=== PATIENT | male | born 1930 | race Caucasian/White ===

== ENCOUNTER 2019-02-25 21:15 | Inpatient (IN) | payer OTHER ==
[2019-02-25] MEDS ORDERED: SODIUM CHLORIDE 0.9% 500 ML INFUS.BAG IV ONE (22:21)
--- NOTE | 2019-02-25 22:30 | PDOC ---
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 Unfortunately our patient was not about to "push himself out of it", only able to crawl/ Luckily he did have access to some amount of water within his range of motion. After a day and a half his niece, who grew worried, called the police who ultimately found our patient and brought him to the ER. He is not in pain but is dehydrated ands hungry. <PopVadim - Last Filed: 02/26/19 00:39> - General Chief Complaint: Injury Stated Complaint: FALL Time Seen by Provider: 02/25/19 21:55 Past History <Lauren Avelar - Last Filed: 02/25/19 23:25> - Suicide/Smoking/Psychosocial Hx Smoking History: Never smoked Have you smoked in the past 12 months: No Information on smoking cessation initiated: No Hx Alcohol Use: No Drug/Substance Use Hx: No <Vadim Lord - Last Filed: 02/26/19 00:39> - Past Medical History Allergies/Adverse Reactions: Allergies Allergy/AdvReac Type Severity Reaction Status Date / Time No Known Allergies Allergy Verified 02/25/19 21:36 Review of Systems - Review of Systems Able to Perform ROS?: Yes Is the patient limited Ch[place] proficient: No Constitutional: Yes: Weakness HEENTM: No: Symptoms Reported Respiratory: No: Symptoms reported Cardiac (ROS): No: Symptoms Reported ABD/GI: No: Symptoms Reported Integumentary: No: Symptoms Reported Neurological: No: Symptoms reported <LordVadim - Last Filed: 02/26/19 00:39> *Physical Exam - Vital Signs Last Vital Signs Temp Pulse Resp BP Pulse Ox 97.7 F 88 16 162/85 97 02/25/19 21:15 02/25/19 21:15 02/25/19 21:15 02/25/19 21:15 02/25/19 21:15 <Lauren Avelar - Last Filed: 02/25/19 23:25> - Vital Signs Last Vital Signs Temp Pulse Resp BP Pulse Ox 97.7 F 88 16 162/85 97 02/25/19 21:15 02/25/19 21:15 02/25/19 21:15 02/25/19 21:15 02/25/19 21:15 - Physical Exam General Appearance: Yes: Disheveled HEENT: positive: Other (dry mucosa) Respiratory/Chest: positive: Lungs Clear, Normal Breath Sounds. negative: Chest Tender, Respiratory Distress Cardiovascular: positive: Regular Rhythm, Regular Rate, S1, S2 Gastrointestinal/Abdominal: positive: Normal Bowel Sounds, Flat, Soft. negative : Tender Musculoskeletal: negative: CVA Tenderness Extremity: positive: Delayed Capillary Refill Integumentary: positive: Normal Color, Dry, Warm, Other (skin tenting). negative: Ecchymosis, Bruising Neurologic: positive: Fully Oriented, Other (speech a bit slurred, improved after drinking water) <Vadim Lord - Last Filed: 02/26/19 00:39> ED Treatment Course - LABORATORY CBC & Chemistry Diagram: 02/25/19 22:45 02/25/19 22:45 - ADDITIONAL ORDERS Additional order review: Laboratory Results 02/25/19 22:45 Sodium 141 Potassium 4.0 Chloride 108 H Carbon Dioxide 24 Anion Gap 8 BUN 19 H Creatinine 0.9 Est GFR (CKD-EPI)AfAm 88.07 Est GFR (CKD-EPI)NonAf 75.99 Random Glucose 113 H Calcium 11.4 H Phosphorus 3.4 Total Bilirubin 1.1 H AST 32 ALT 33 Alkaline Phosphatase 214 H Creatine Kinase 404 H Troponin I < 0.02 Total Protein 7.4 Albumin 4.2 02/25/19 22:45 RBC 4.92 MCV 87.7 MCHC 32.5 RDW 14.8 MPV 9.1 Neutrophils % 74.5 Lymphocytes % 13.1 Monocytes % 10.5 H Eosinophils % 1.1 Basophils % 0.8 - Medications Given in the ED: ED Medications Discontinued Medications Generic Name Dose Route Start Last Admin Trade Name Freq PRN Reason Stop Dose Admin Sodium Chloride 1,000 ml 02/25/19 22:21 02/25/19 22:52 Normal Saline - IV 02/25/19 22:22 1,000 ml ONCE ONE Administration <Lauren Avelar - Last Filed: 02/25/19 23:25> - LABORATORY CBC & Chemistry Diagram: 02/25/19 22:45 02/25/19 22:45 <Vadim Lord - Last Filed: 02/26/19 00:39> Medical Decision Making - Medical Decision Making 02/25/19 23:55 88M found on the floor unable to get back up from unknown rehab device. Previously admitted and discharged for weakness secondary to hypercalcemia Getting 2L of fluid Mildly elevated CK, No elevation of creatinine. Negative trops. Calcium mildly elevated. No phosphate elevation. EKG: Sinus rhythm with occasional premature ventricular complexes. Inferior infarct, age undetermined. 02/26/19 00:38 Admitted to med surg hospitalist for weakness, inability to ambulate. <Vadim Lord - Last Filed: 02/26/19 00:39> *DC/Admit/Observation/Transfer <Lauren Avelar - Last Filed: 02/25/19 23:25> - Discharge Dispostion Decision to Admit order: Yes <Vadim Lord - Last Filed: 02/26/19 00:39> Diagnosis at time of Disposition: Unable to ambulate, Hypercalcemia - Discharge Dispostion Condition at time of disposition: Fair
[2019-02-25 22:55] LABS: BASO % 0.8 % (0-2.0); EOS % 1.1 % (0-4.5); HEMATOCRIT 43.1 % (35.4-49); LYMPH % 13.1 % (8-40); MCH 28.5 pg (25.7-33.7); MCHC 32.5 g/dl (32.0-35.9); MEAN CELL VOLUME 87.7 fl (80-96); MEAN PLT VOLUME 9.1 fl (7.5-11.1); MONO % 10.5 % (3.8-10.2); NEUT % 74.5 % (42.8-82.8); PLATELET COUNT 214 K/MM3 (134-434); RBC 4.92 M/mm3 (4.00-5.60); RDW 14.8 % (11.9-15.9); WHITE BLOOD COUNT 10.7 K/mm3 (4.0-10.0)
[2019-02-25 23:19] LABS: ALBUMIN 4.2 g/dl (3.4-5.0); ALK PHOS 214 U/L (45-117); ANION GAP 8 MMOL/L (8-16); BILIRUBIN,TOTAL 1.1 mg/dL (0.2-1); BLOOD UREA NITROGEN 19 mg/dL (7-18); CALCIUM 11.4 mg/dL (8.5-10.1); CHLORIDE 108 mmol/L (98-107); CO2 24 mmol/L (21-32); CREATININE 0.9 mg/dL (0.55-1.3); GLUCOSE,RANDOM 113 mg/dL (74-106); PHOSPHOROUS 3.4 mg/dL (2.5-4.9); SGOT/AST 32 U/L (15-37); SGPT/ALT 33 U/L (13-61); SODIUM 141 mmol/L (136-145); TOT PROT 7.4 g/dl (6.4-8.2)
--- NOTE | 2019-02-26 00:21 | PDOC ---
Documentation entered by Amalia Lopez SCRIBE, acting as scribe for Lauren Avelar MD. Lauren Avelar MD: This documentation has been prepared by the Jessica presley Sammi, SCRIBE, under my direction and personally reviewed by me in its entirety. I confirm that the documentation accurately reflects all work, treatment, procedures, and medical decision making performed by me. Attending Attestation - Resident Resident Name: Vadim Lord - ED Attending Attestation I have performed the following: I have examined & evaluated the patient, The case was reviewed & discussed with the resident, I agree w/resident's findings & plan, Exceptions are as noted - HPI HPI: 02/25/19 22:48 The patient is an 88 year old male, who was BIBA to the emergency department after being found down for 1.5 days in his home. The patient states he got stuck in a device and could not got out of it. His niece called the home furnishings sales representative to check on the patient as she had not heard from him for a while. The patient complains of severe dehydration. He notes chronic right shoulder pain. The patient is a poor historian. Of note, the patient was recently discharged from [facility] 2 days ago for hypercalcemia caused by a new parathyroid condition. - Physicial Exam PE: 02/25/19 22:48 GENERAL: Poor historian. Awake. No acute distress. HEENT: (+) Dry mucous membranes. Normocephalic, atraumatic. PERRLA, EOMI. No conjunctival pallor. Sclera are non-icteric. Oropharynx is clear. NECK: Supple. Full ROM. No JVD. Carotid pulses 2+ and symmetric, without bruits. No thyromegaly. No lymphadenopathy. CARDIOVASCULAR: Regular rate and rhythm. No murmurs, rubs, or gallops. Distal pulses are 2+ and symmetric. PULMONARY: No evidence of respiratory distress. Lungs clear to auscultation bilaterally. No wheezing, rales or rhonchi. ABDOMINAL: (+) ventral hernia - reproducible. Soft. Non-tender. Non-distended. No rebound or guarding. No organomegaly. Normoactive bowel sounds. MUSCULOSKELETAL (+) right shoulder tenderness. Normal range of motion at all joints. No bony deformities or tenderness. No CVA tenderness. EXTREMITIES: No cyanosis. No clubbing. No edema. No calf tenderness. SKIN: +tenting , Warm and dry. No rashes. No jaundice. NEUROLOGICAL: Alert, awake, appropriate. Cranial nerves 2-12 intact. No deficits to light touch and temperature in face, upper extremities and lower extremities. No motor deficits in the in face, upper extremities and lower extremities. Normoreflexic in the upper and lower extremities. Normal speech. Toes are down- going bilaterally. Gait is normal without ataxia. PSYCHIATRIC: Cooperative. Good eye contact. Appropriate mood and affect. 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
[2019-02-26] MEDS ORDERED: SODIUM CHLORIDE 1,000 ML IV STA ×2 (00:30→01:51)
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
--- NOTE | 2019-02-26 01:39 | PN ---
Teaching Attending Note Name of Resident: Tati Monaco ATTENDING PHYSICIAN STATEMENT I saw and evaluated the patient. I reviewed the resident's note and discussed the case with the resident. I agree with the resident's findings and plan as documented. SUBJECTIVE: 88 year old male, poor historian who was BIBA to the ER after being found down for 1.5 days in his home. The patient states he got stuck in a exercise machine in his home for almost 2 days and could not got out of it. He was without water and food for that time. Pt recently diagnosed at [facility] with hypercalcemia and allegedly has parathyroid tumor. OBJECTIVE: Last Vital Signs Temp Pulse Resp BP Pulse Ox 97.7 F 88 16 162/85 97 02/25/19 21:15 02/25/19 21:15 02/25/19 21:15 02/25/19 21:15 02/25/19 21:15 Oriented to person, place, not time general- nad, appears frail, weak heent- no tenderness neck supple cor-s1+s2+ no murmurs chest clear abdomen soft nt msk- no tenderness on limb palpation Abnormal Lab Results 02/25/19 02/25/19 22:45 22:45 WBC 10.7 H Monocytes % 10.5 H Chloride 108 H BUN 19 H Random Glucose 113 H Calcium 11.4 H Total Bilirubin 1.1 H Alkaline Phosphatase 214 H Creatine Kinase 404 H ekg reviewed ASSESSMENT AND PLAN: #Generalized weakness likely related to underlying hyperparathyroidism and hypercalcemia. Hx of parathyroid tumor- likely culprit. Ca elevated- 11.4. Mild rhabomyolysis likely from prolonged time on ground. Unknown baseline mental status. -admit ot med/surg -IV fluid hydration - NS -obtain medical records from [place] -cxr -head CT -pth -tsh -free ca level -phosphorus level -Vit D 25 hydrox, 0-25 hydrox -endocrine eval -bed rest fall precautions #Mild rhabdo -IV fluids -repeat CK #Mild leukocytosis - no evidence of infection -monitor cbc off abx DVT ppx - heparin sc
[2019-02-26] MEDS: SODIUM CHLORIDE 1,000 ML IV SCH ×3 (02:45→17:20)
--- NOTE | 2019-02-26 02:56 | PDOC ---
*Physical Exam - Vital Signs Last Vital Signs Temp Pulse Resp BP Pulse Ox 97.7 F 88 16 162/85 97 02/25/19 21:15 02/25/19 21:15 02/25/19 21:15 02/25/19 21:15 02/25/19 21:15 - Physical Exam Comments: 02/26/19 03:01 General Appearance: Nourished. No Apparent Distress HEENT: EOMI, VIRGIE. No Pharyngeal Erythema, Tonsillar Exudate, Tonsillar Erythema Neck: No Cervical Lymphadenopathy Respiratory/Chest: Lungs Clear, Normal Breath Sounds. No Crackles, Rales, Rhonchi, Wheezing Cardiovascular: Regular Rhythm, Regular Rate. No Murmur, Gallops, Rubs Gastrointestinal/Abdominal: Normal Bowel Sounds, Soft. No Guarding, Rebound, Tenderness Musculoskeletal: No CVA Tenderness Extremity: Normal Capillary Refill Integumentary: Normal Color, Dry, Warm Neurologic: research kennel supervisor II-XII NML intact, Fully Oriented, Alert, Normal Mood/Affect, Normal Response, Motor Strength 5/5. ED Treatment Course - LABORATORY CBC & Chemistry Diagram: 02/25/19 22:45 02/25/19 22:45 - ADDITIONAL ORDERS Additional order review: Laboratory Results 02/25/19 02/25/19 23:55 22:45 Sodium 141 Potassium 4.0 Chloride 108 H Carbon Dioxide 24 Anion Gap 8 BUN 19 H Creatinine 0.9 Est GFR (CKD-EPI)AfAm 88.07 Est GFR (CKD-EPI)NonAf 75.99 Random Glucose 113 H Calcium 11.4 H Phosphorus 3.4 Magnesium 2.3 Total Bilirubin 1.1 H AST 32 ALT 33 Alkaline Phosphatase 214 H Creatine Kinase 404 H Creatine Kinase Index 0.5 CK-MB (CK-2) 2.3 Troponin I < 0.02 Total Protein 7.4 Albumin 4.2 02/25/19 22:45 RBC 4.92 MCV 87.7 MCHC 32.5 RDW 14.8 MPV 9.1 Neutrophils % 74.5 Lymphocytes % 13.1 Monocytes % 10.5 H Eosinophils % 1.1 Basophils % 0.8 - Medications Given in the ED: ED Medications Discontinued Medications Generic Name Dose Route Start Last Admin Trade Name Freq PRN Reason Stop Dose Admin Sodium Chloride 1,000 mls @ 1,000 mls/hr 02/26/19 00:30 02/26/19 00:54 Normal Saline - IV 02/26/19 01:29 1,000 mls/hr ASDIR STA Administration Sodium Chloride 1,000 mls @ 1,000 mls/hr 02/26/19 01:51 02/26/19 02:45 Normal Saline - IV 02/26/19 02:50 1,000 mls/hr ASDIR STA Administration Sodium Chloride 1,000 ml 02/25/19 22:21 02/25/19 22:52 Normal Saline - IV 02/25/19 22:22 1,000 ml ONCE ONE Administration Medical Decision Making - Medical Decision Making 02/26/19 03:01 Received call from imaging nutrition faculty member regarding a critical read on the patient's head CT. Head CT demonstrated 2.8 cm subacute and acute right sided subdural hematoma with 11mm right to left subfalcine herniation. We discussed the case with Dr. Carnes with neurosurgery who recommended ICU admission for frequent q1h neurochecks and to keep the patient NPO for possible neurosurgical intervention. We discussed the case with the ICU team who accepted the patient for ICU admission. We discussed the findings and updated plain with the inpatient team who are aware of the new findings. *DC/Admit/Observation/Transfer Diagnosis at time of Disposition: Unable to ambulate, Hypercalcemia, Subdural hematoma - Discharge Dispostion Condition at time of disposition: Fair - Referrals - Patient Instructions - Post Discharge Activity
--- NOTE | 2019-02-26 02:57 | CONSULT ---
Consultation: REQUESTING PROVIDER: Hospitalist team CONSULT Service: ICU Resident HISTORY OF PRESENT ILLNESS: 88yo M w/ h/o HTN, parathyroid neoplasmt who presents today with 2 days of generalized weakness and being trapped in an exercise machine. Pt reports about 8 weeks ago he had a mechanical fall where he had a mistep which resulted with him hitting his head onto a concrete floor. Pt was seen at [facility] where he underwent stitches to his R zygomatic arch and supraorbital ridge, and was found to have 5 broken ribs and a fractured R clavicle. Pt reportedly did not receive a CT scan and was discharged home. Pt was in relatively usual state of health, however slightly weak when he decided to try his new exercise machine. Pt reports that he positioned himself wrong and because of his weakness he could not get out of the machine. He reports being stuck for 2 days. Pt's niece did not hear from him she decided to call the police who found him at his home. He was brought here by ambulance for further evaluation. Pt currently feels globally weak, but he denies any numbness, asymmetrical weakness, headache, incontinence. During pt's mechanical fall pt denies any lightheadedness, dizziness, shortness of breath, blurry vision, chest pain, palpitations. REVIEW OF SYSTEMS: As per HPI PHYSICAL EXAMINATION Vital Signs 02/25/19 21:15 Temperature 97.7 F Pulse Rate 88 Respiratory 16 Rate Blood Pressure 162/85 O2 Sat by Pulse 97 Oximetry (%) GENERAL: NAD, Awake, alert, and fully oriented HEENT: normocephalic, R zygomatic arch erythema without any present stitches, ANDERS, EOMI, sclera anicteric, dry mucosa NECK: No JVD, no thyromegaly appreciated, supple LUNGS: CTA bilaterally. No wheezes, and no crackles. No accessory muscle use. HEART: RRR, normal S1 and S2 without murmur ABDOMEN: Soft, NT/ND, normoactive bowel sounds, no guarding, EXTREMITIES: 1+ DP pulses b/l, warm, well-perfused. No calf tenderness. No peripheral edema. 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 Strength 3/5 globally yet symmetrical, Sensation intact throughout. Babinski downgoing b/l. Gait not observed. Patellar reflex 2/ 4 PSYCHIATRIC: Cooperative. Good eye contact. Appropriate mood and affect. SKIN: Warm, dry, no rashes noted. Laboratory Results 02/25/19 02/25/19 22:45 22:45 WBC 10.7 H RBC 4.92 Hgb 14.0 Hct 43.1 MCV 87.7 MCH 28.5 MCHC 32.5 RDW 14.8 Plt Count 214 MPV 9.1 Absolute Neuts (auto) 8.0 Neutrophils % 74.5 Lymphocytes % 13.1 Monocytes % 10.5 H Eosinophils % 1.1 Basophils % 0.8 Nucleated RBC % 0 Sodium 141 Potassium 4.0 Chloride 108 H Carbon Dioxide 24 Anion Gap 8 BUN 19 H Creatinine 0.9 Est GFR (CKD-EPI)AfAm 88.07 Est GFR (CKD-EPI)NonAf 75.99 Random Glucose 113 H Calcium 11.4 H Phosphorus 3.4 Magnesium 2.3 Total Bilirubin 1.1 H AST 32 ALT 33 Alkaline Phosphatase 214 H Creatine Kinase 404 H Creatine Kinase Index 0.5 CK-MB (CK-2) 2.3 Troponin I < 0.02 Total Protein 7.4 Albumin 4.2 Active Medications Generic Name Dose Route Start Last Admin Trade Name Freq PRN Reason Stop Dose Admin Sodium Chloride 1,000 mls @ 125 mls/hr 02/26/19 02:00 02/26/19 02:45 Normal Saline - IV 125 mls/hr ASDIR FARIHA Administration ASSESSMENT/PLAN: Acute/Subacute subdural hemorrhage Hypercalcemia 2/2 to hyperparathyroidism Parathyroid neoplasm Rhabdomyolysis, mild Dehydration HTN Prelim Head CT noncontrast 02/26/18: 2.8cm mixed acute and subacute diffuse R- sided subdural hematoma with significant mass effect causing 1.1cm of R-to-L subfalcine herniation --Neurosurgery contacted by primary teams; q1h neurochecks --Will assess in morning and likely evacuation given extent of shift (2.8cm hemorrhage with 1.1 cm shift) --NPO --No heparin or AC --Avoid sedatives and narcotics --does not need Dex/Decadron at this point --HOB elevation 30-45 to avoid ICP increase --BP goal in acute hemorrhagic stroke to 140-160 SBP to prevent continued bleeding or rebleed. [1,2] --Pt's antihypertensive regiment changed recently; to continue Lisinopril 20mg qdaily --Hypercalcemia likely due to parathyroid mass which was worked up at [facility] --PTH, vitamin D levels ordered --Primary team in process of acquiring records --pt currently receiving 3L NS and maintenance at 150cc/hr afterwards --Monitor CPK; UA to be collected (no specimen yet) --Monitor urine output --Recommend PT once pt cleared FEN: Fluids: NS@150cc/hr Electrolyte abnormalities: Hypercalcemia Nutrition: NPO PPX: DVT - SCDs only GI - Protonix daily to avoid Cushings ulcer GOC: Full Code Dispo: Monitor in ICU; awaiting neurosurgery procedure Case discussed with primary team Ed Boyd DO - IM PGY-2 Reference: [1] ATACH-2 trials [2] INTERACT2 trials Visit type - Emergency Visit Emergency Visit: Yes ED Registration Date: 02/26/19 Care time: The patient presented to the Emergency Department on the above date and was hospitalized for further evaluation of their emergent condition. - New Patient This patient is new to me today: Yes Date on this admission: 02/26/19 - Critical Care Critical Care patient: Yes Total Critical Care Time (in minutes): 35 Critical Care Statement: The care of this patient involved high complexity decision making to prevent further life threatening deterioration of the patient 's condition and/or to evaluate & treat vital organ system(s) failure or risk of failure.
[2019-02-26] MEDS ORDERED: LISINOPRIL 20 MG TABLET (FP) PO ONE (03:23)
[2019-02-26 03:52] LABS: URINE APPEARANCE CLEAR; URINE BILIRUBIN NEGATIVE (NEGATIVE); URINE COLOR YELLOW; URINE GLUCOSE (UA) NEGATIVE (NEGATIVE); URINE KETONE NEGATIVE (NEGATIVE); URINE LEUK ESTERASE NEGATIVE (NEGATIVE); URINE NITRITE NEGATIVE (NEGATIVE); URINE PROTEIN NEGATIVE (NEGATIVE)
[2019-02-26] MEDS: LISINOPRIL 20 MG TABLET (FP) PO SCH ×2 (05:38→09:25)
[2019-02-26] MEDS ORDERED: HEPARIN NA (PORCINE) 5,000 UNITS/ML 1ML VIAL SQ SCH (06:00)
[2019-02-26 06:28] LABS: BASO % 0.7 % (0-2.0); EOS % 3.7 % (0-4.5); HEMATOCRIT 37.1 % (35.4-49); HEMOGLOBIN 12.1 GM/dL (11.7-16.9); LYMPH % 21.1 % (8-40); MCH 28.6 pg (25.7-33.7); MCHC 32.5 g/dl (32.0-35.9); MEAN CELL VOLUME 88.1 fl (80-96); MEAN PLT VOLUME 10.1 fl (7.5-11.1); NEUT % 64.5 % (42.8-82.8); PLATELET COUNT 147 K/MM3 (134-434); RBC 4.21 M/mm3 (4.00-5.60); RDW 14.2 % (11.9-15.9); WHITE BLOOD COUNT 7.7 K/mm3 (4.0-10.0)
[2019-02-26 06:44] LABS: INR 1.1 (0.83-1.09)
[2019-02-26 06:47] LABS: ACTIVATED PTT 26.6 SECONDS (25.2-36.5)
[2019-02-26 07:11] LABS: ALBUMIN 3.2 g/dl (3.4-5.0); CALCIUM 9.7 mg/dL (8.5-10.1); CREATININE 0.9 mg/dL (0.55-1.3); MAGNESIUM 1.8 mg/dL (1.8-2.4); PHOSPHOROUS 2.9 mg/dL (2.5-4.9); POTASSIUM 3.5 mmol/L (3.5-5.1); TOT PROT 5.7 g/dl (6.4-8.2)
--- NOTE | 2019-02-26 07:20 | PN ---
Physical Exam: SUBJECTIVE: Patient seen and examined at bedside this morning. No overnight events. Patient denies acute complaints, resting comfortably in exam bed. Case discussed with patient's brother . OBJECTIVE: Vital Signs Period Temp Pulse Resp BP Sys/Mckeon Pulse Ox Last 24 Hr 97.7 F-98.1 F 67-88 16-20 142-162/65-87 97 GENERAL: The patient is awake, alert, and oriented, in no acute distress. HEAD: Normocephalic EYES: PERRL, extraocular movements intact without nystagmus, sclera anicteric, conjunctiva clear. ENT: Oropharynx clear without exudates, moist mucous membranes. NECK: Trachea midline, supple without lymphadenopathy LUNGS: Breath sounds equal, clear to auscultation bilaterally. No wheezes, no crackles, no accessory muscle use. HEART: Regular rate and rhythm, S1, S2 without murmur, rub or gallop. ABDOMEN: Soft, nontender, nondistended. Normoactive bowel sounds, no guarding, no rebound tenderness. EXTREMITIES: 2+ radial, dorsalis pedis pulses bilaterally, warm, well-perfused. No lower extremity edema. NEUROLOGICAL: Cranial nerves II through XII grossly intact, with exception of slight right sided ptosis, and nasiolabial flattening. PSYCH: Normal mood, normal affect, appropriate upon my encounter. SKIN: Warm, dry. Laboratory Results - last 24 hr 02/25/19 02/25/19 02/25/19 22:45 22:45 23:55 WBC 10.7 H RBC 4.92 Hgb 14.0 Hct 43.1 MCV 87.7 MCH 28.5 MCHC 32.5 RDW 14.8 Plt Count 214 MPV 9.1 Absolute Neuts (auto) 8.0 Neutrophils % 74.5 Lymphocytes % 13.1 Monocytes % 10.5 H Eosinophils % 1.1 Basophils % 0.8 Nucleated RBC % 0 PT with INR INR PTT (Actin FS) Sodium 141 Potassium 4.0 Chloride 108 H Carbon Dioxide 24 Anion Gap 8 BUN 19 H Creatinine 0.9 Est GFR (CKD-EPI)AfAm 88.07 Est GFR (CKD-EPI)NonAf 75.99 Random Glucose 113 H Calcium 11.4 H Phosphorus 3.4 Magnesium 2.3 Total Bilirubin 1.1 H AST 32 ALT 33 Alkaline Phosphatase 214 H Creatine Kinase 404 H Creatine Kinase Index 0.5 CK-MB (CK-2) 2.3 Troponin I < 0.02 Total Protein 7.4 Albumin 4.2 TSH Urine Color Urine Appearance Urine pH Ur Specific [place] Urine Protein Urine Glucose (UA) Urine Ketones Urine Blood Urine Nitrite Urine Bilirubin Urine Urobilinogen Ur Leukocyte Esterase 02/26/19 02/26/19 02/26/19 03:29 03:30 05:30 WBC RBC Hgb Hct MCV MCH MCHC RDW Plt Count MPV Absolute Neuts (auto) Neutrophils % Lymphocytes % Monocytes % Eosinophils % Basophils % Nucleated RBC % PT with INR INR PTT (Actin FS) 25.5 Sodium 143 Potassium 3.5 Chloride 112 H Carbon Dioxide 23 Anion Gap 8 BUN 17 Creatinine 0.9 Est GFR (CKD-EPI)AfAm 88.07 Est GFR (CKD-EPI)NonAf 75.99 Random Glucose 92 Calcium 9.7 Phosphorus 2.9 Magnesium 1.8 Total Bilirubin 1.0 AST 24 ALT 26 Alkaline Phosphatase 174 H Creatine Kinase 264 Creatine Kinase Index CK-MB (CK-2) Troponin I 0.02 Total Protein 5.7 L Albumin 3.2 L TSH 2.25 Urine Color Yellow Urine Appearance Clear Urine pH 6.0 Ur Specific [place] 1.016 Urine Protein Negative Urine Glucose (UA) Negative Urine Ketones Negative Urine Blood Negative Urine Nitrite Negative Urine Bilirubin Negative Urine Urobilinogen 1.0 Ur Leukocyte Esterase Negative 02/26/19 02/26/19 05:30 05:30 WBC 7.7 RBC 4.21 Hgb 12.1 Hct 37.1 MCV 88.1 MCH 28.6 MCHC 32.5 RDW 14.2 Plt Count 147 D MPV 10.1 D Absolute Neuts (auto) 5.0 Neutrophils % 64.5 Lymphocytes % 21.1 D Monocytes % 10.0 Eosinophils % 3.7 D Basophils % 0.7 Nucleated RBC % 0 PT with INR 13.00 INR 1.10 H PTT (Actin FS) 26.6 Sodium Potassium Chloride Carbon Dioxide Anion Gap BUN Creatinine Est GFR (CKD-EPI)AfAm Est GFR (CKD-EPI)NonAf Random Glucose Calcium Phosphorus Magnesium Total Bilirubin AST ALT Alkaline Phosphatase Creatine Kinase Creatine Kinase Index CK-MB (CK-2) Troponin I Total Protein Albumin TSH Urine Color Urine Appearance Urine pH Ur Specific [place] Urine Protein Urine Glucose (UA) Urine Ketones Urine Blood Urine Nitrite Urine Bilirubin Urine Urobilinogen Ur Leukocyte Esterase Active Medications Generic Name Dose Route Start Last Admin Trade Name Freq PRN Reason Stop Dose Admin Sodium Chloride 1,000 mls @ 125 mls/hr 02/26/19 02:00 02/26/19 04:00 Normal Saline - IV 125 mls/hr ASDIR FARIHA Administration Lisinopril 20 mg 02/26/19 03:30 02/26/19 05:38 Prinivil PO 20 mg DAILY FARIHA Administration Pantoprazole Sodium 40 mg 02/26/19 10:00 Protonix Iv IVPUSH DAILY FARIHA ASSESSMENT/PLAN: Patient is an 88 year old male with history of parathyroid neoplasm, hypertension admitted to ICU for subacute/ acute subdural hematoma. Neurologic -Patient is awake, alert, fully oriented. -CT head shows large right sided subdural hematoma, maximal width 2.8cm, with significant mass effect on right ventricle, midline shift and subfalcine herniation (10-11mm) -Neurosurgery recommendations (Dr. Carnes) appreciated. Patient for OR today. Follow up postoperative recommendations. Cardiac -History of hypertension -Maintaining systolic BP 140-160mmHg -Lisinopril 20mg PO Pulmonary -Patient is currently not intubated. Saturating well on room air. -Maintain oxygen saturation greater than 90% Gastrointestinal -NPO pending neurosurgery evaluation Endocrine -History of parathyroid neoplasm -Hypercalcemia -Ionized calcium -Will need to obtain records from [facility] -Endocrinology consult (Dr. Petit) appreciated. FEN -IV normal saline at 150mL/ hour -Hypercalcemia resolving. Follow CMP -NPO pending neurosurgery evaluation Prophylaxis -Holding chemical anticoagulation in anticipation of neurosurgical procedure Disposition -Continue care in ICU. Visit type - Emergency Visit Emergency Visit: Yes ED Registration Date: 02/26/19 Care time: The patient presented to the Emergency Department on the above date and was hospitalized for further evaluation of their emergent condition. - New Patient This patient is new to me today: Yes Date on this admission: 02/26/19 - Critical Care Critical Care patient: Yes Total Critical Care Time (in minutes): 35 Critical Care Statement: The care of this patient involved high complexity decision making to prevent further life threatening deterioration of the patient 's condition and/or to evaluate & treat vital organ system(s) failure or risk of failure. - Discharge Referral Referred to [facility] Med [facility].: No
--- NOTE | 2019-02-26 07:43 | PN ---
Physical Exam: SUBJECTIVE: Patient seen and examined at bedside. no acute events since admission. denies fever, chills, cp, sob, n/v/d, urinary sxs. +BM, voiding today. OBJECTIVE: Vital Signs Period Temp Pulse Resp BP Sys/Mckeon Pulse Ox Last 24 Hr 97.7 F-98.1 F 67-88 16-20 142-162/65-87 97 GENERAL: AOX3, talking slowly, NAD HEAD: NCTAT EYES: Pupils pinpoint equal, round and reactive to light, L eye lens opacity EARS, NOSE, THROAT: Dry mucous membranes++. Poor dentition NECK: supple LUNGS: CTAB HEART: RRR, normal S1 and S2 ABDOMEN: Soft, NTND, normoactive bowel sounds, MUSCULOSKELETAL: Normal range of motion at all joints. No bony deformities or tenderness. LOWER EXTREMITIES: 2+ pulses, warm, well-perfused. No calf tenderness. No peripheral edema. NEUROLOGICAL: Slow/ low toned speech. gait not observed. Strength 3-4/5 throughout. sensation grossly intact. CN 2-12 intact Laboratory Results - last 24 hr 02/25/19 02/25/19 02/25/19 22:45 22:45 23:55 WBC 10.7 H RBC 4.92 Hgb 14.0 Hct 43.1 MCV 87.7 MCH 28.5 MCHC 32.5 RDW 14.8 Plt Count 214 MPV 9.1 Absolute Neuts (auto) 8.0 Neutrophils % 74.5 Lymphocytes % 13.1 Monocytes % 10.5 H Eosinophils % 1.1 Basophils % 0.8 Nucleated RBC % 0 PT with INR INR PTT (Actin FS) Sodium 141 Potassium 4.0 Chloride 108 H Carbon Dioxide 24 Anion Gap 8 BUN 19 H Creatinine 0.9 Est GFR (CKD-EPI)AfAm 88.07 Est GFR (CKD-EPI)NonAf 75.99 Random Glucose 113 H Calcium 11.4 H Phosphorus 3.4 Magnesium 2.3 Total Bilirubin 1.1 H AST 32 ALT 33 Alkaline Phosphatase 214 H Creatine Kinase 404 H Creatine Kinase Index 0.5 CK-MB (CK-2) 2.3 Troponin I < 0.02 Total Protein 7.4 Albumin 4.2 TSH Urine Color Urine Appearance Urine pH Ur Specific [place] Urine Protein Urine Glucose (UA) Urine Ketones Urine Blood Urine Nitrite Urine Bilirubin Urine Urobilinogen Ur Leukocyte Esterase Blood Type Antibody Screen 02/26/19 02/26/19 02/26/19 03:29 03:30 05:30 WBC RBC Hgb Hct MCV MCH MCHC RDW Plt Count MPV Absolute Neuts (auto) Neutrophils % Lymphocytes % Monocytes % Eosinophils % Basophils % Nucleated RBC % PT with INR INR PTT (Actin FS) 25.5 Sodium 143 Potassium 3.5 Chloride 112 H Carbon Dioxide 23 Anion Gap 8 BUN 17 Creatinine 0.9 Est GFR (CKD-EPI)AfAm 88.07 Est GFR (CKD-EPI)NonAf 75.99 Random Glucose 92 Calcium 9.7 Phosphorus 2.9 Magnesium 1.8 Total Bilirubin 1.0 AST 24 ALT 26 Alkaline Phosphatase 174 H Creatine Kinase 264 Creatine Kinase Index CK-MB (CK-2) Troponin I 0.02 Total Protein 5.7 L Albumin 3.2 L TSH 2.25 Urine Color Yellow Urine Appearance Clear Urine pH 6.0 Ur Specific [place] 1.016 Urine Protein Negative Urine Glucose (UA) Negative Urine Ketones Negative Urine Blood Negative Urine Nitrite Negative Urine Bilirubin Negative Urine Urobilinogen 1.0 Ur Leukocyte Esterase Negative Blood Type Antibody Screen 02/26/19 02/26/19 02/26/19 05:30 05:30 05:30 WBC 7.7 RBC 4.21 Hgb 12.1 Hct 37.1 MCV 88.1 MCH 28.6 MCHC 32.5 RDW 14.2 Plt Count 147 D MPV 10.1 D Absolute Neuts (auto) 5.0 Neutrophils % 64.5 Lymphocytes % 21.1 D Monocytes % 10.0 Eosinophils % 3.7 D Basophils % 0.7 Nucleated RBC % 0 PT with INR 13.00 INR 1.10 H PTT (Actin FS) 26.6 Sodium Potassium Chloride Carbon Dioxide Anion Gap BUN Creatinine Est GFR (CKD-EPI)AfAm Est GFR (CKD-EPI)NonAf Random Glucose Calcium Phosphorus Magnesium Total Bilirubin AST ALT Alkaline Phosphatase Creatine Kinase Creatine Kinase Index CK-MB (CK-2) Troponin I Total Protein Albumin TSH Urine Color Urine Appearance Urine pH Ur Specific [place] Urine Protein Urine Glucose (UA) Urine Ketones Urine Blood Urine Nitrite Urine Bilirubin Urine Urobilinogen Ur Leukocyte Esterase Blood Type O POSITIVE Antibody Screen Negative Active Medications Generic Name Dose Route Start Last Admin Trade Name Freq PRN Reason Stop Dose Admin Sodium Chloride 1,000 mls @ 125 mls/hr 02/26/19 02:00 02/26/19 04:00 Normal Saline - IV 125 mls/hr ASDIR FARIHA Administration Lisinopril 20 mg 02/26/19 03:30 02/26/19 05:38 Prinivil PO 20 mg DAILY FARIHA Administration Pantoprazole Sodium 40 mg 02/26/19 10:00 Protonix Iv IVPUSH DAILY [facility] [id number] CT/HEAD CT WITHOUT CONTRAST CT scan of the brain c-. Trapped under exercise machine. Findings. The head was tilted during the acquisition of images Serial axial images of the brain were obtained from foramen magnum to the cranial vertex without intravenous contrast. The study was supplemented with computer-generated coronal and sagittal reconstruction images. There is large right subdural hematoma extending from the superior aspect of the right temporal lobe convexity toward the vertex, with multiple internal septations, multiloculated acute on chronic subdural hematoma with fluid levels. Maximal width of the subdural hematoma approximately 2.8 cm. Significant mass effect on right lateral ventricle with midline shift, subfalcine herniation (adriana 10-11mm). No evidence of hydrocephalus. No evidence of acute intraventricular hemorrhage. Cerebral cortical atrophy without effacement of the cortical sulci sylvian fissure. No evidence of acute intra-axial hematoma. No evidence of uncal herniation. No subarachnoid hemorrhage is seen. Examination of the bone windows show no fracture. The visualized paranasal sinuses and mastoid air cells are clear. Symmetrical ocular globes. Unremarkable retro-orbital soft tissues. Impression. There is large right subdural hematoma extending from the superior aspect of the right temporal lobe convexity toward the vertex, with multiple internal septations, multiloculated acute on chronic subdural hematoma with fluid levels. Maximal width of the subdural hematoma approximately 2.8 cm. Significant mass effect on right lateral ventricle with midline shift, subfalcine herniation (adriana 10-11mm). No evidence of hydrocephalus. No evidence of uncal herniation. Reported By: Murray Kaba MD 02/26/19 0803 ASSESSMENT/PLAN: 88 yo M with PMHx of HTN, recent diagnosis of Parathyroid neoplasm and hypercalcemia and recent fall (8 wks ago) p/w 2 day hx of generalized weakness and poor PO intake/Dehydration in setting of being trapped under exercise equipment. 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 approximately 2.8 cm. Significant mass effect on R lateral ventricle w/ midline shift, subfalcine herniation (adriana 10-11mm). Neuro exam intact, no focal neuro deficits, AOX3 and agrees to the surgery. Neurosurgery consulted, Dr Carnes preop labs neurochecks Q1h NPO for OR today incentive spirometry BP goal in acute hemorrhagic stroke to 140-160 SBP to prevent continued bleeding or rebleed. fall precautions Generalized weakness, and poor PO intake/Dehydration in setting of mild hypercalcemia and being trapped under exercise equipment Hypercalcemia likely 2/2 parathyroid mass, pt worked up recently at [facility], will try to obtain records. hyper Ca improving w/ IVF c/w NS @150/hr TSH nl, f/u Cortisol levels. PTH levels, 24 hr Urinary calcium, ionized calcium, urinary cortisol, Vit D levels (authorization required, cannot order) CXR no acute pathology, +old rib trauma UA neg, ucx pend [id number], few PVCs, Q waves- III, AVF, II, normal axis, no MOMO/STD, QTc-401 , normal intervals trop negx2 Endocrine Consulted, Dr Petit PT eval after surgery Parathyroid neoplasm: Recently diagnosed at [place], will try to obtain records Elevated CPK- resolved w/ IVF. HTN resume home Losartan 40mg qd avoid thiazides in setting of hypercalcemia BP goal in acute hemorrhagic stroke to 140-160 SBP to prevent continued bleeding or rebleed. Chronic limited right shoulder - exacerbated by recent fall and now again by exercise equipment PT eval FEN NS @150/hr replete prn Sodium controlled diet, NPO for OR today PPx: Hold SQH- CT head showed bleed above SCDs protonix daily to avoid Cushings ulcer Code: Full code Dispo: Med Surg Visit type - Emergency Visit Emergency Visit: Yes ED Registration Date: 02/26/19 Care time: The patient presented to the Emergency Department on the above date and was hospitalized for further evaluation of their emergent condition. - New Patient This patient is new to me today: Yes Date on this admission: 02/26/19 - Critical Care Critical Care patient: No
[2019-02-26] MEDS ORDERED: PROPOFOL 20 ML ONE (09:36)
[2019-02-26] MEDS ORDERED: fentaNYL CITRATE 250 MCG/5 ML VIAL ONE (09:36)
[2019-02-26] MEDS ORDERED: ROCURONIUM BROMIDE 50 MG/5 ML VIAL ONE (09:37)
[2019-02-26] MEDS ORDERED: LIDOCAINE HCL/PF 2% SDV 5ML VIAL ONE (09:40)
[2019-02-26] MEDS: PANTOPRAZOLE SODIUM 40 MG VIAL IVPUSH SCH (09:43)
--- NOTE | 2019-02-26 09:56 | CONSULT ---
Consult - text type - Consultation Consultation Note: The patient is an 88 y/o male who was BIBA to the [facility] ED yesterday after being stuck behind exercise equipment for over 24 hours at his home[address] A Head CT was done and showed a very large right sided subacute on chronic SDH with significant mass effect and midline shift. The patient is awake, alert and oriented x 3. His pupils are equal, round and reactive to light. He has no new focal neurologic deficits. He has chronic limited right shoulder movement. His head is deviated to the left which is also a chronic finding. I have recommended a right sided craniotomy and evacuation of the SDH. The risks of the surgery including bleeding, infection, brain injury and the re-accumulation of the SDH was explained in detail to the patient and his brother. The patient agreed to surgical intervention and informed consent was obtained. The OR and ICU were notified.
--- NOTE | 2019-02-26 09:58 | EKG ---
Test Reason : Blood Pressure : / mmHG Vent. Rate : 088 BPM Atrial Rate : 088 BPM P-R Int : 170 ms QRS Dur : 064 ms QT Int : 332 ms P-R-T Axes : 047 -11 022 degrees QTc Int : 401 ms POOR DATA QUALITY, INTERPRETATION MAY BE ADVERSELY AFFECTED SINUS RHYTHM WITH OCCASIONAL PREMATURE VENTRICULAR COMPLEXES INFERIOR INFARCT , AGE UNDETERMINED ABNORMAL ECG NO PREVIOUS ECGS AVAILABLE Confirmed by MD TENISHA, JACOB ([id number]) on 02/26/2019 9:58:37 AM Referred By: Confirmed By:JACOB STEVEN MD
[2019-02-26] MEDS ORDERED: THROMBIN (BOVINE) 5,000 UNIT VIAL TP ONE ×2 (10:00→12:20)
[2019-02-26] MEDS ORDERED: LIDOCAINE 1%-EPI 1:100,000 30 ML MDV IJ ONE (10:00)
[2019-02-26] MEDS ORDERED: ePHEDrine SULFATE 50 MG/1 ML AMPULE ONE (11:45)
[2019-02-26] MEDS ORDERED: ceFAZolin SODIUM 1 GM VIAL IVPB ONE (11:55)
[2019-02-26] MEDS ORDERED: LIDOCAINE 1%/EPI 1:100000 (50 ML MULTI DOSE VIAL) NR ONE (12:10)
--- NOTE | 2019-02-26 12:10 | PN ---
Teaching Attending Note Name of Resident: Kyrie Huggins ATTENDING PHYSICIAN STATEMENT I saw and evaluated the patient. I reviewed the resident's note and discussed the case with the resident. I agree with the resident's findings and plan as documented. SUBJECTIVE: Patient seen and examined in the ICU. Awake and alert. Able to follow commands. Denies CP or SOB. Intake & Output 02/23/19 02/24/19 02/25/19 02/26/19 23:59 23:59 23:59 23:59 Intake Total 246 Output Total 350 Balance -104 Weight 160 lb 3.2 oz 161 lb 9 oz Last Vital Signs Temp Pulse Resp BP Pulse Ox 97.8 F 72 18 140/79 97 02/26/19 09:00 02/26/19 09:00 02/26/19 09:00 02/26/19 09:00 02/25/19 21:15 Active Medications Sodium Chloride (Normal Saline -) 1,000 mls @ 125 mls/hr IV ASDIR [facility] Last Admin: 02/26/19 04:00 Dose: 125 mls/hr Lisinopril (Prinivil) 20 mg PO DAILY [facility] Last Admin: 02/26/19 09:25 Dose: Not Given Pantoprazole Sodium (Protonix Iv) 40 mg IVPUSH DAILY [facility] Last Admin: 02/26/19 09:43 Dose: 40 mg GENERAL: NAD, Awake, alert, and oriented HEENT: normocephalic, R zygomatic arch erythema without any present stitches, ANDERS, EOMI, sclera anicteric, dry mucosa NECK: No JVD, no thyromegaly appreciated, supple LUNGS: CTA bilaterally. No wheezes, and no crackles. No accessory muscle use. HEART: RRR, normal S1 and S2 without murmur ABDOMEN: Soft, NT/ND, normoactive bowel sounds, no guarding, EXTREMITIES: 1+ DP pulses b/l, warm, well-perfused. No calf tenderness. No peripheral edema. NEUROLOGICAL: R-sided asymmetry of smile and nasolabial fold, strength 4/5 but seems symmetrical. PSYCHIATRIC: Cooperative. SKIN: Warm, dry, no rashes noted. Laboratory Results - last 24 hr 02/25/19 02/25/19 02/25/19 22:45 22:45 23:55 WBC 10.7 H RBC 4.92 Hgb 14.0 Hct 43.1 MCV 87.7 MCH 28.5 MCHC 32.5 RDW 14.8 Plt Count 214 MPV 9.1 Absolute Neuts (auto) 8.0 Neutrophils % 74.5 Lymphocytes % 13.1 Monocytes % 10.5 H Eosinophils % 1.1 Basophils % 0.8 Nucleated RBC % 0 PT with INR INR PTT (Actin FS) Sodium 141 Potassium 4.0 Chloride 108 H Carbon Dioxide 24 Anion Gap 8 BUN 19 H Creatinine 0.9 Est GFR (CKD-EPI)AfAm 88.07 Est GFR (CKD-EPI)NonAf 75.99 Random Glucose 113 H Calcium 11.4 H Phosphorus 3.4 Magnesium 2.3 Total Bilirubin 1.1 H AST 32 ALT 33 Alkaline Phosphatase 214 H Creatine Kinase 404 H Creatine Kinase Index 0.5 CK-MB (CK-2) 2.3 Troponin I < 0.02 Total Protein 7.4 Albumin 4.2 TSH Urine Color Urine Appearance Urine pH Ur Specific [place] Urine Protein Urine Glucose (UA) Urine Ketones Urine Blood Urine Nitrite Urine Bilirubin Urine Urobilinogen Ur Leukocyte Esterase Blood Type Antibody Screen Crossmatch IS Only 02/26/19 02/26/19 02/26/19 03:29 03:30 05:30 WBC RBC Hgb Hct MCV MCH MCHC RDW Plt Count MPV Absolute Neuts (auto) Neutrophils % Lymphocytes % Monocytes % Eosinophils % Basophils % Nucleated RBC % PT with INR INR PTT (Actin FS) 25.5 Sodium 143 Potassium 3.5 Chloride 112 H Carbon Dioxide 23 Anion Gap 8 BUN 17 Creatinine 0.9 Est GFR (CKD-EPI)AfAm 88.07 Est GFR (CKD-EPI)NonAf 75.99 Random Glucose 92 Calcium 9.7 Phosphorus 2.9 Magnesium 1.8 Total Bilirubin 1.0 AST 24 ALT 26 Alkaline Phosphatase 174 H Creatine Kinase 264 Creatine Kinase Index 0.8 CK-MB (CK-2) 2.3 Troponin I 0.02 Total Protein 5.7 L Albumin 3.2 L TSH 2.25 Urine Color Yellow Urine Appearance Clear Urine pH 6.0 Ur Specific [place] 1.016 Urine Protein Negative Urine Glucose (UA) Negative Urine Ketones Negative Urine Blood Negative Urine Nitrite Negative Urine Bilirubin Negative Urine Urobilinogen 1.0 Ur Leukocyte Esterase Negative Blood Type Antibody Screen Crossmatch IS Only 02/26/19 02/26/19 02/26/19 05:30 05:30 05:30 WBC 7.7 RBC 4.21 Hgb 12.1 Hct 37.1 MCV 88.1 MCH 28.6 MCHC 32.5 RDW 14.2 Plt Count 147 D MPV 10.1 D Absolute Neuts (auto) 5.0 Neutrophils % 64.5 Lymphocytes % 21.1 D Monocytes % 10.0 Eosinophils % 3.7 D Basophils % 0.7 Nucleated RBC % 0 PT with INR 13.00 INR 1.10 H PTT (Actin FS) 26.6 Sodium Potassium Chloride Carbon Dioxide Anion Gap BUN Creatinine Est GFR (CKD-EPI)AfAm Est GFR (CKD-EPI)NonAf Random Glucose Calcium Phosphorus Magnesium Total Bilirubin AST ALT Alkaline Phosphatase Creatine Kinase Creatine Kinase Index CK-MB (CK-2) Troponin I Total Protein Albumin TSH Urine Color Urine Appearance Urine pH Ur Specific [place] Urine Protein Urine Glucose (UA) Urine Ketones Urine Blood Urine Nitrite Urine Bilirubin Urine Urobilinogen Ur Leukocyte Esterase Blood Type O POSITIVE Antibody Screen Negative Crossmatch IS Only See Detail 02/26/19 10:30 WBC RBC Hgb Hct MCV MCH MCHC RDW Plt Count MPV Absolute Neuts (auto) Neutrophils % Lymphocytes % Monocytes % Eosinophils % Basophils % Nucleated RBC % PT with INR INR PTT (Actin FS) Sodium Potassium Chloride Carbon Dioxide Anion Gap BUN Creatinine Est GFR (CKD-EPI)AfAm Est GFR (CKD-EPI)NonAf Random Glucose Calcium Phosphorus Magnesium Total Bilirubin AST ALT Alkaline Phosphatase Creatine Kinase Creatine Kinase Index CK-MB (CK-2) Troponin I Total Protein Albumin TSH Urine Color Urine Appearance Urine pH Ur Specific [place] Urine Protein Urine Glucose (UA) Urine Ketones Urine Blood Urine Nitrite Urine Bilirubin Urine Urobilinogen Ur Leukocyte Esterase Blood Type O POSITIVE Antibody Screen Crossmatch IS Only ASSESSMENT/PLAN: Acute/Subacute subdural hemorrhage Hypercalcemia 2/2 to hyperparathyroidism Parathyroid neoplasm Rhabdomyolysis, mild Dehydration HTN For surgical decompression Mechanical VTE prophylaxis HOB elevation O2 as needed NPO for now Follow Neuro exam Requires ICU monitoring Dr Gupta Critical care time spent in reviewing chart, evaluating patient and formulating plan - 36 minutes.
[2019-02-26] MEDS ORDERED: levETIRAcetam 500 MG/5 ML INJECTION VIAL IVPB ONE (12:15)
[2019-02-26] MEDS ORDERED: NEOSTIGMINE METHYLSULFATE 0.5 MG/ML - 10 ML MDV ONE (12:31)
[2019-02-26] MEDS ORDERED: GLYCOPYRROLATE 0.2 MG/1 ML VIAL ONE (12:32)
[2019-02-26] MEDS ORDERED: GELATIN, ABSORBABLE 100 EACH SPONGE TP ONE (12:59)
[2019-02-26] MEDS ORDERED: GELATIN, ABSORBABLE 12-7MM EACH SPONGE TP ONE (13:00)
--- NOTE | 2019-02-26 14:17 | PN ---
Teaching Attending Note Name of Resident: Obi Arias ATTENDING PHYSICIAN STATEMENT I saw and evaluated the patient. I reviewed the resident's note and discussed the case with the resident. I agree with the resident's findings and plan as documented. SUBJECTIVE: denies LAUREN , or visual changes, lauren sno numbness or tingling. weakness in R shoulder due to injury reports no LOc, but he fell 2 months ago and hit his head OBJECTIVE: NAD , emotional and tearful HEENT: No facial droop, EOMI, round equal pupils, reactive to light. MMM Lungs: CTAB Abd:sfot, NT, ND , NL BS Ext : No edema or erythema. Neuro: No facial droop, EOMI, round equal pupils, reactive to light. tongue at mid line. strength: RUE: unable to eval shoulder shrug and shoulder abduction due to pain. biceps 5/ 5, triceps 5/5. 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 unable to evaluate shoulder shrug and abduction due to position . 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 he was found to have R subdural hematoma 1- Acute on chronic subdural hematoma with mass efect and mid line shift . - avoid any blood thinners - to Or today - monitor neuro exam - HOB elevation 2- Mild Rhabdo : IVF ( decrease rate ) 3- Mild hypercalcemia : due to hyperparathyroidism per report. - PTH pending _ corrected ca this am 10.34. cont gentle hydration - PTH pending - f/u as out pt 4- HTN: resume losartan in am 5- DVT PX : Scds ICU level of care Critical Care Total Critical Care Time (in minutes): 30 Critical Care Statement: The care of this patient involved high complexity decision making to prevent further life threatening deterioration of the patient 's condition and/or to evaluate & treat vital organ system(s) failure or risk of failure.
--- NOTE | 2019-02-26 14:55 | OP ---
Operative Note - Note: Operative Date: 02/26/19 Pre-Operative Diagnosis: Right Sided Subacute on Chronic Subdural Hematoma Operation: Right Sided Craniotomy and Evacuation of Subacute on Chronic Subdural Hematoma Implants: Titanium Mini-Plates and 4 mm Screws Post-Operative Diagnosis: Same as Pre-op Surgeon: Dashawn Carnes Anesthesia: General Specimens Removed: Subdural Membrane Estimated Blood Loss (mls): 100 Drains & Tubes with Location: Subgaleal YANNICK drain Operative Report Dictated: Yes
[2019-02-26] MEDS ORDERED: LABETALOL HCL 5 MG/1 ML (100MG/20 ML VIAL) IVPUSH ONE (15:19)
[2019-02-26] MEDS ORDERED: ceFAZolin SODIUM 1 GM VIAL ONE (17:51)
[2019-02-26] MEDS ORDERED: DEXTROSE 5%-WATER - 50 ML IVPB ONE (17:51)
[2019-02-26] MEDS: CEFAZOLIN 1 GM in DEXTROSE 5%-WATER - 50 ML IVPB SCH (17:52)
[2019-02-26] MEDS ORDERED: CEFAZOLIN 1 GM/D5W 1 GM/50 ML BAG IVPB SCH (18:00)
[2019-02-26] MEDS ORDERED: ACETAMINOPHEN 1000 MG/100 ML VIAL (NON FORMULARY) IVPB ONE (19:37)
--- NOTE | 2019-02-26 22:56 | CONSULT ---
Consult Consult Specialty:: endocrine Referred by:: hospitalist Reason for Consultation:: hyperparathyroidism/hypercalcemia - History of Present Illness Chief Complaint: fall injury sdh History of Present Illness: 88 yo M with PMHx of HTN, recent diagnosis of Parathyroid adenoma and hypercalcemia presenting with hx of generalized weakness. Pt was found by police in his house following a phone call from the niece to police as as pt could not be reached by phone. Pt was trapped under an excercise machine found to have dehydration,weakness,hypercalcemia ca of 11.4 ,and large SDH,requiring neurosurgical evacuation. - Alcohol/Substance Use Hx Alcohol Use: No - Smoking History Smoking history: Never smoked Have you smoked in the past 12 months: No Home Medications - Allergies Allergies/Adverse Reactions: Allergies Allergy/AdvReac Type Severity Reaction Status Date / Time No Known Allergies Allergy Verified 02/25/19 21:36 - Home Medications Home Medications: Ambulatory Orders Cinacalcet HCl [Sensipar -] 30 mg PO DAILY 02/26/19 Losartan Potassium 50 mg PO DAILY 02/26/19 Review of Systems - Review of Systems Constitutional: reports: Lethargy, Malaise, Weakness Physical Exam Vital Signs: Vital Signs Temperature 97.7 F 02/26/19 19:00 Pulse Rate 62 02/26/19 22:00 Respiratory Rate 19 02/26/19 22:00 Blood Pressure 129/80 02/26/19 22:00 O2 Sat by Pulse Oximetry (%) 98 02/26/19 21:00 Constitutional: Yes: Calm Eyes: Yes: EOM Intact HENT: Yes: Normocephalic Neck: Yes: Trachea Midline Cardiovascular: Yes: Regular Rate and Rhythm Respiratory: Yes: CTA Bilaterally Gastrointestinal: Yes: Normal Bowel Sounds ...Rectal Exam: Yes: Deferred Breast(s): Yes: WNL Musculoskeletal: Yes: WNL, Muscle Weakness Edema: No Neurological: Yes: Alert, Lethargy, Weakness Labs: CBC, BMP 02/26/19 05:30 02/26/19 05:30 Problem List - Problems (1) Hypercalcemia Code(s): E83.52 - HYPERCALCEMIA (2) Subdural hematoma Code(s): S06.5X9A - TRAUM SUBDR HEM W LOC OF UNSP DURATION, INIT (3) Unable to ambulate Code(s): R26.2 - DIFFICULTY IN WALKING, NOT ELSEWHERE CLASSIFIED (4) Hyperparathyroidism Assessment/Plan Current Active Problems Hypercalcemia (Acute) Subdural hematoma (Acute) Unable to ambulate (Acute) hypeparathyrodism parathyroid adenoma Abnormal Lab Results 02/25/19 02/26/19 02/26/19 22:45 05:30 05:30 INR 1.10 H Chloride 108 H 112 H BUN 19 H Random Glucose 113 H Calcium 11.4 H Total Bilirubin 1.1 H Alkaline Phosphatase 214 H 174 H Creatine Kinase 404 H Total Protein 5.7 L Albumin 3.2 L Crossmatch IS Only 02/26/19 05:30 INR Chloride BUN Random Glucose Calcium Total Bilirubin Alkaline Phosphatase Creatine Kinase Total Protein Albumin Crossmatch IS Only See Detail correction calcium 12.0 plan: continue iv fluid rehydration sensipar 30mg po daily pth intact molecule cx ionized calcium
[2019-02-27] MEDS ORDERED: DEXTROSE 5%-WATER - 50 ML IVPB ONE ×2 (01:09→07:41)
[2019-02-27] MEDS ORDERED: ceFAZolin SODIUM 1 GM VIAL ONE ×2 (01:09→07:41)
[2019-02-27] MEDS: CEFAZOLIN 1 GM in DEXTROSE 5%-WATER - 50 ML IVPB SCH ×2 (01:13→09:00)
[2019-02-27] MEDS ORDERED: ACETAMINOPHEN 1000 MG/100 ML VIAL (NON FORMULARY) IVPB ONE ×2 (02:58→08:15)
--- NOTE | 2019-02-27 03:08 | PN ---
Progress Note (short form) - Note Progress Note: UPDATE: Repeat CT shows slight nonsignificant reaccumulation of blood, however not much interval change (1cm of shift vs. 1.1cm previous image as discussed with IOC). Altered sensorium likely age-related sundowning vs. post-procedural confusion vs. ICU psychosis. Doubt metabolic encephalopathy 2/2 to electrolytes , ammonia Will continue to reorient and monitor. Pt remains altered with persevarations noted. Pt not following commands at this point and is only oriented to himself. Pt keeps repeating he does not know where he is despite continued attempts at reorientation. No sedating medications have been given since OR procedure. Ofirmev given for pain. Pupils symmetrical at 4mm with reactivity to light. Limb tone WNL (strength cannot be tested due to patient noncompliance) YANNICK drain with only 15cc and 17cc on multiple occassions A/P --Concern over reaccumulation of hemorrhage vs. worsening shift --Head CT stat for assessment given change in mental status --If concerning features will reach out to neurosurgery --If no interval change will continue to reorient; will continue to avoid sedative drugs if possible due to recent neuro procedure
[2019-02-27 06:24] LABS: BASO % 0.2 % (0-2.0); EOS % 0.2 % (0-4.5); HEMATOCRIT 37.2 % (35.4-49); LYMPH % 13.9 % (8-40); MCH 28.1 pg (25.7-33.7); MCHC 32.2 g/dl (32.0-35.9); MEAN CELL VOLUME 87.2 fl (80-96); MEAN PLT VOLUME 9.3 fl (7.5-11.1); MONO % 10.2 % (3.8-10.2); NEUT % 75.5 % (42.8-82.8); PLATELET COUNT 190 K/MM3 (134-434); RBC 4.26 M/mm3 (4.00-5.60); RDW 14.6 % (11.9-15.9); WHITE BLOOD COUNT 11.6 K/mm3 (4.0-10.0)
[2019-02-27 06:50] LABS: ALBUMIN 3.3 g/dl (3.4-5.0); CALCIUM 10.6 mg/dL (8.5-10.1); CREATININE 0.9 mg/dL (0.55-1.3); MAGNESIUM 2.1 mg/dL (1.8-2.4); PHOSPHOROUS 3.3 mg/dL (2.5-4.9); POTASSIUM 4.4 mmol/L (3.5-5.1); TOT PROT 5.9 g/dl (6.4-8.2)
[2019-02-27] MEDS ORDERED: PT OWN MED DRAWER 7, Y5N ONE ×2 (07:42→16:58)
--- NOTE | 2019-02-27 08:25 | PN ---
Physical Exam: SUBJECTIVE: Patient seen and examined at bedside. overnight pt confused and agitated. POD1 Right Sided Craniotomy and Evacuation of Subacute on Chronic Subdural Hematoma. This morning patient c/o neck and upper shoulder pain from lying flat overnight, although had noted yesterday he has chronic issues with these. denies fever, chills, cp, sob, n/v/d, urinary sxs. OBJECTIVE: Vital Signs Period Temp Pulse Resp BP Sys/Mckeon Pulse Ox Last 24 Hr 97.3 F-98.1 F 50-102 17-100 109-158/49-94 95-98 GENERAL: AOX3, talking slowly, NAD HEAD: +Subgaleal YANNICK drain EYES: Pupils pinpoint equal, round and reactive to light, L eye lens opacity EARS, NOSE, THROAT: Dry mucous membranes++. Poor dentition NECK: supple LUNGS: CTAB HEART: RRR, normal S1 and S2 ABDOMEN: Soft, NTND, normoactive bowel sounds, MUSCULOSKELETAL: Normal range of motion at all joints. No bony deformities or tenderness. LOWER EXTREMITIES: 2+ pulses, warm, well-perfused. No calf tenderness. No peripheral edema. NEUROLOGICAL: Slow/ low toned speech. gait not observed. Strength 4/5 LUE. RUE 3/5 (chronic due to right shoulder injury). Strength 4/5 LE b/l. Sensation symmetrically intact b/l upper and lower extremities. CN 2-12 intact Laboratory Results - last 24 hr 02/26/19 02/26/19 02/27/19 05:30 10:30 05:40 WBC 11.6 H RBC 4.26 Hgb 12.0 Hct 37.2 MCV 87.2 MCH 28.1 MCHC 32.2 RDW 14.6 Plt Count 190 D MPV 9.3 Absolute Neuts (auto) 8.8 H Neutrophils % 75.5 Lymphocytes % 13.9 D Monocytes % 10.2 Eosinophils % 0.2 D Basophils % 0.2 Nucleated RBC % 0 Sodium Potassium Chloride Carbon Dioxide Anion Gap BUN Creatinine Est GFR (CKD-EPI)AfAm Est GFR (CKD-EPI)NonAf Random Glucose Calcium Phosphorus Magnesium Total Bilirubin AST ALT Alkaline Phosphatase Total Protein Albumin Blood Type O POSITIVE O POSITIVE Antibody Screen Negative Crossmatch IS Only See Detail 02/27/19 05:40 WBC RBC Hgb Hct MCV MCH MCHC RDW Plt Count MPV Absolute Neuts (auto) Neutrophils % Lymphocytes % Monocytes % Eosinophils % Basophils % Nucleated RBC % Sodium 142 Potassium 4.4 Chloride 109 H Carbon Dioxide 25 Anion Gap 8 BUN 12 Creatinine 0.9 Est GFR (CKD-EPI)AfAm 88.07 Est GFR (CKD-EPI)NonAf 75.99 Random Glucose 129 H Calcium 10.6 H Phosphorus 3.3 Magnesium 2.1 Total Bilirubin 1.0 AST 22 ALT 25 Alkaline Phosphatase 169 H Total Protein 5.9 L Albumin 3.3 L Blood Type Antibody Screen Crossmatch IS Only Active Medications Generic Name Dose Route Start Last Admin Trade Name Freq PRN Reason Stop Dose Admin Cinacalcet 30 mg 02/27/19 10:00 Sensipar - PO DAILY [facility] Sodium Chloride 1,000 mls @ 100 mls/hr 02/26/19 14:06 02/26/19 17:20 Normal Saline - IV 100 mls/hr ASDIR [facility] Administration Cefazolin Sodium 1 gm/ 50 mls @ 100 mls/hr 02/26/19 18:00 02/27/19 01:13 Dextrose IVPB 02/27/19 17:59 100 mls/hr Q8H-IV FARI[facility] Administration Losartan Potassium 50 mg 02/27/19 10:00 Cozaar - PO DAILY [facility] Pantoprazole Sodium 40 mg 02/26/19 10:00 02/26/19 09:43 Protonix Iv IVPUSH 40 mg DAILY [facility] Administration CT/HEAD CT WITHOUT CONTRAST CT scan of the brain c-. Trapped under exercise machine. Findings. The head was tilted during the acquisition of images Serial axial images of the brain were obtained from foramen magnum to the cranial vertex without intravenous contrast. The study was supplemented with computer-generated coronal and sagittal reconstruction images. There is large right subdural hematoma extending from the superior aspect of the right temporal lobe convexity toward the vertex, with multiple internal septations, multiloculated acute on chronic subdural hematoma with fluid levels. Maximal width of the subdural hematoma approximately 2.8 cm. Significant mass effect on right lateral ventricle with midline shift, subfalcine herniation (adriana 10-11mm). No evidence of hydrocephalus. No evidence of acute intraventricular hemorrhage. Cerebral cortical atrophy without effacement of the cortical sulci sylvian fissure. No evidence of acute intra-axial hematoma. No evidence of uncal herniation. No subarachnoid hemorrhage is seen. Examination of the bone windows show no fracture. The visualized paranasal sinuses and mastoid air cells are clear. Symmetrical ocular globes. Unremarkable retro-orbital soft tissues. Impression. There is large right subdural hematoma extending from the superior aspect of the right temporal lobe convexity toward the vertex, with multiple internal septations, multiloculated acute on chronic subdural hematoma with fluid levels. Maximal width of the subdural hematoma approximately 2.8 cm. Significant mass effect on right lateral ventricle with midline shift, subfalcine herniation (adriana 10-11mm). No evidence of hydrocephalus. No evidence of uncal herniation. Reported By: Murray Kaba MD 02/26/19 0803 [id number] CT/HEAD CT WITHOUT CONTRAST Cranial CT without contrast Clinical information given: postop In comparison to a CT study performed 15 hours earlier note is made of interval right parietal craniotomy with evacuation of the majority of the very large right- sided panhemispheric acute on chronic subdural hematoma. Air is now visualized within the majority of the dilated subdural space. On the current exam there is moderate to marked leftward midline displacement which appears mildly improved. As on the preoperative study the left frontal calvarium at the high convexity level demonstrates an attenuated appearance which could conceivably be postsurgical. Correlate clinically. Impression: As noted above. Reported By: Mars Burgess MD 02/26/19 1818 [id number] CT/HEAD CT WITHOUT CONTRAST Clinical information. AMS. CT brain noncontrast study. Direct axial images were obtained with coronal, sagittal reconstruction. Comparison study. Postop CT of the brain February 26, 2019 at 5:18 PM. Status post evacuation of acute on chronic subdural hematoma. Status post right frontal/parietal craniotomy. Right pneumocephalus with maximal width approximately 2.6 cm, with mass effect on the right frontal cerebral convexity. Small residual hyperdense blood products are seen along the inner table of the right frontal parietal calvarium toward the vertex. Air-fluid level is seen with dependent hypodense extra-axial fluid measuring 1.4 HU similar to CSF 2.2 HU (hygroma). Partially effaced right sylvian fissure. Cortical sulci are partially effaced. There is mild mass effect on the right lateral ventricle with midline shift of the septum pellucidum to the left side unchanged from prior postop CT of the brain. Subfalcine herniation persists. Overall decrease mass effect, midline shift, subfalcine herniation in comparison to preoperative CT of the brain. No evidence of hydrocephalus. No evidence subarachnoid hemorrhage. No evidence of acute intra-axial collection. No CT evidence of acute territorial ischemic changes. No evidence of opacification of the mastoid air cells, visualized paranasal sinuses. Impression. Please refer to the body of report Reported By: Murray Kaba MD 02/27/19 0824 ASSESSMENT/PLAN: 88 yo M with PMHx of HTN, BPH, recent diagnosis of Parathyroid neoplasm and hypercalcemia and recent fall (8 wks ago) p/w 2 day hx of generalized weakness and poor PO intake/Dehydration in setting of being trapped under exercise equipment. 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 approximately 2.8 cm. Significant mass effect on R lateral ventricle w/ midline shift, subfalcine herniation (adriana 10-11mm). Neuro exam intact, no focal neuro deficits, AOX3 and agreed to the surgery. Now POD1 Right Sided Craniotomy and Evacuation of Subacute on Chronic Subdural Hematoma Neuro exam unchanged. rpt CT headx2, reviewed above, shows mild improvement of midline shift Neurosurgery consulted, Dr Carnes preop labs neurochecks Q1h incentive spirometry Maintaining systolic BP <150mmHg per neurosurgery recs. fall precautions NPO, Speech, swallow evaluation appreciated. Will initiate full liquid diet once patient able to sit upright, per neurosurgery. post op cefazolin Generalized weakness, and poor PO intake/Dehydration in setting of mild hypercalcemia and being trapped under exercise equipment Hypercalcemia likely 2/2 parathyroid mass, pt worked up recently at [facility], records obtained and placed in chart. c/w NS @100/hr TSH nl, f/u Cortisol levels. PTH levels, 24 hr Urinary calcium, ionized calcium, urinary cortisol, Vit D levels (authorization required, cannot order) CXR no acute pathology, +old rib trauma UA, ucx neg [id number], few PVCs, Q waves- III, AVF, II, normal axis, no MOMO/STD, QTc-401 , normal intervals trop negx2 Endocrine Consulted, Dr Petit PT eval after surgery Parathyroid neoplasm: Recently diagnosed at [facility], records obtained and placed in chart. At [facility] PTH was 121, vit D was nl 25, 1, 25 vit D was nl, kidney U/S nl. pt was eval by their endo Dr Fountain who did not think pt would be a good candidate for parathyroid surgery and would instead benefit from med management including cinicalcet w/ possible addition of antiresorptive (alendronate) at f/u within a few weeks Mild Rhabdo - resolved w/ IVF. HTN c/w home Losartan 50mg qd avoid thiazides in setting of hypercalcemia Maintaining systolic BP <150mmHg per neurosurgery recs. Chronic limited right shoulder - exacerbated by recent fall and now again by exercise equipment PT eval FEN NS @100/hr replete prn NPO, Speech, swallow evaluation appreciated. Will initiate full liquid diet once patient able to sit upright, per neurosurgery. PPx: Hold SQH- CT head showed bleed above SCDs protonix daily to avoid Cushings ulcer Code: Full code Dispo: Med Surg Visit type - Emergency Visit Emergency Visit: Yes ED Registration Date: 02/26/19 Care time: The patient presented to the Emergency Department on the above date and was hospitalized for further evaluation of their emergent condition. - New Patient This patient is new to me today: Yes Date on this admission: 02/27/19 - Critical Care Critical Care patient: Yes Total Critical Care Time (in minutes): 37 Critical Care Statement: The care of this patient involved high complexity decision making to prevent further life threatening deterioration of the patient 's condition and/or to evaluate & treat vital organ system(s) failure or risk of failure.
--- NOTE | 2019-02-27 08:37 | PN ---
Physical Exam: SUBJECTIVE: Patient seen and examined at bedside this morning. He is POD #1 s/p right craniotomy and evacuation of subdural hematoma. Patient was reportedly agitated, and confused overnight. This morning patient complains of neck and upper shoulder pain from lying flat overnight. He denies subjective fevers, chills, shortness of breath, chest pain, palpitations. OBJECTIVE: Vital Signs Period Temp Pulse Resp BP Sys/Mckeon Pulse Ox Last 24 Hr 97.3 F-98.1 F 50-102 17-100 109-158/49-94 95-98 GENERAL: The patient is awake, alert, and oriented, in no acute distress. HEAD: Normocephalic. YANNICK drain with serosanguinous discharge. EYES: PERRL, extraocular movements intact without nystagmus, sclera anicteric, conjunctiva clear. ENT: Oropharynx clear without exudates, moist mucous membranes. NECK: Trachea midline, supple without lymphadenopathy LUNGS: Breath sounds equal, clear to auscultation bilaterally. No wheezes, no crackles, no accessory muscle use. HEART: Regular rate and rhythm, S1, S2 without murmur, rub or gallop. ABDOMEN: Soft, nontender, nondistended. Normoactive bowel sounds, no guarding, no rebound tenderness. EXTREMITIES: 2+ radial, dorsalis pedis pulses bilaterally, warm, well-perfused. No lower extremity edema. NEUROLOGICAL: Cranial nerves II through XII grossly intact, with exception of slight right sided ptosis, and nasiolabial flattening. Strength 4/5 left upper extremity. Right upper extremity 3/5 (chronic due to right shoulder injury). Strength 4/5 bilateral lower extremities. Sensation symmetrically intact bilateral upper and lower extremities. PSYCH: Normal mood, normal affect, appropriate upon my encounter. SKIN: Warm, dry. Laboratory Results - last 24 hr 02/26/19 02/26/19 02/27/19 05:30 10:30 05:40 WBC 11.6 H RBC 4.26 Hgb 12.0 Hct 37.2 MCV 87.2 MCH 28.1 MCHC 32.2 RDW 14.6 Plt Count 190 D MPV 9.3 Absolute Neuts (auto) 8.8 H Neutrophils % 75.5 Lymphocytes % 13.9 D Monocytes % 10.2 Eosinophils % 0.2 D Basophils % 0.2 Nucleated RBC % 0 Sodium Potassium Chloride Carbon Dioxide Anion Gap BUN Creatinine Est GFR (CKD-EPI)AfAm Est GFR (CKD-EPI)NonAf Random Glucose Calcium Phosphorus Magnesium Total Bilirubin AST ALT Alkaline Phosphatase Total Protein Albumin Blood Type O POSITIVE O POSITIVE Antibody Screen Negative Crossmatch IS Only See Detail 02/27/19 05:40 WBC RBC Hgb Hct MCV MCH MCHC RDW Plt Count MPV Absolute Neuts (auto) Neutrophils % Lymphocytes % Monocytes % Eosinophils % Basophils % Nucleated RBC % Sodium 142 Potassium 4.4 Chloride 109 H Carbon Dioxide 25 Anion Gap 8 BUN 12 Creatinine 0.9 Est GFR (CKD-EPI)AfAm 88.07 Est GFR (CKD-EPI)NonAf 75.99 Random Glucose 129 H Calcium 10.6 H Phosphorus 3.3 Magnesium 2.1 Total Bilirubin 1.0 AST 22 ALT 25 Alkaline Phosphatase 169 H Total Protein 5.9 L Albumin 3.3 L Blood Type Antibody Screen Crossmatch IS Only Active Medications Generic Name Dose Route Start Last Admin Trade Name Freq PRN Reason Stop Dose Admin Cinacalcet 30 mg 02/27/19 10:00 Sensipar - PO DAILY FARIHA Sodium Chloride 1,000 mls @ 100 mls/hr 02/26/19 14:06 02/26/19 17:20 Normal Saline - IV 100 mls/hr ASDIR FARIHA Administration Cefazolin Sodium 1 gm/ 50 mls @ 100 mls/hr 02/26/19 18:00 02/27/19 01:13 Dextrose IVPB 02/27/19 17:59 100 mls/hr Q8H-IV FARIHA Administration Losartan Potassium 50 mg 02/27/19 10:00 Cozaar - PO DAILY FARIHA Pantoprazole Sodium 40 mg 02/26/19 10:00 02/26/19 09:43 Protonix Iv IVPUSH 40 mg DAILY FARIHA Administration IMAGING: Initial CT head shows large right sided subdural hematoma, maximal width 2.8cm, with significant mass effect on right ventricle, midline shift and subfalcine herniation (10-11mm) Postoperative CT head imaging shows decrease of mass effect, midline shift, and subfalcine herniation. No acute ischemic changes. ASSESSMENT/PLAN: Patient is an 88 year old male with history of parathyroid neoplasm, hypertension admitted to ICU for subacute/ acute subdural hematoma. Neurologic -Acute on chronic subdural hematoma. -He is POD #1 s/p right craniotomy and evacuation of subdural hematoma. -Patient is awake, alert, fully oriented. -Neurosurgery recommendations (Dr. Carnes) appreciated. Cardiac -History of hypertension -Maintaining systolic BP below 150mmHg per neurosurgery recommendations. Pulmonary -Patient is currently not intubated. Saturating well on room air. -Maintain oxygen saturation greater than 90% Gastrointestinal -Currently NPO. on IV normal saline at 100mL/ hour -Speech, swallow evaluation appreciated. Will initiate full liquid diet once patient able to sit upright, per neurosurgery. -Protonix 40mg IV daily Endocrine -History of parathyroid neoplasm -Hypercalcemia, correct CA 11.2 -Sensipar 30mg PO daily -Will need to obtain records from [facility] -Endocrinology consult (Dr. Petit) appreciated. FEN -IV normal saline at 100mL/ hour -Hypercalcemia. Follow CMP -NPO. Will initiate full liquid diet once patient able to sit upright. Prophylaxis -SCDs bilateral lower extremities. Holding chemical anticoagulation due to recent neurosurgical intervention. Disposition -Continue care in ICU. Visit type - Emergency Visit Emergency Visit: Yes ED Registration Date: 02/26/19 Care time: The patient presented to the Emergency Department on the above date and was hospitalized for further evaluation of their emergent condition. - New Patient This patient is new to me today: No - Critical Care Critical Care patient: Yes Total Critical Care Time (in minutes): 35 Critical Care Statement: The care of this patient involved high complexity decision making to prevent further life threatening deterioration of the patient 's condition and/or to evaluate & treat vital organ system(s) failure or risk of failure. - Discharge Referral Referred to [facility] Med [facility].: No
[2019-02-27] MEDS: PANTOPRAZOLE SODIUM 40 MG VIAL IVPUSH SCH (09:00)
[2019-02-27] MEDS ORDERED: LOSARTAN POTASSIUM 25 MG TABLET PO SCH (10:00)
[2019-02-27] MEDS: SODIUM CHLORIDE 1,000 ML IV SCH ×2 (10:28→14:43)
[2019-02-27] MEDS: CINACALCET HCL 30 MG TAB (FP) PO SCH ×2 (10:52→17:01)
[2019-02-27] MEDS: LOSARTAN POTASSIUM 50 MG TABLET (FP) PO SCH (10:52)
--- NOTE | 2019-02-27 11:34 | CONSULT ---
Admitting History and Physical - Primary Care Physician PCP: Kim Oscar - Admission History of Present Illness: Per EMR- 88 yo M with PMHx of HTN, recent diagnosis of Parathyroid neoplasm and hypercalcemia presenting with 2 day hx of generalized weakness.On 02/26, Pt was found by police in his house following a phone call from the niece to police as as pt could not be reached by phone. Pt was trapped under an exercise machine and was unable to reach anyone as he did not have his phone close to him. He reports being without water and food for about 2 days but denies a fall , head trauma or loss of consciousness. Pt lives alone, is independent in ADLS, walks without support, and reports positioning himself accidentally in reverse in the exercise machine and being unable to free himself due to weakness of his right shoulder (chronic injury). CT head-very large right sided subacute on chronic SDH with significant mass effect and midline shift Operative Date: 02/26/19 Pre-Operative Diagnosis: Right Sided Subacute on Chronic Subdural Hematoma Operation: Right Sided Craniotomy and Evacuation of Subacute on Chronic Subdural Hematoma History Source: Medical Record Limitations to Obtaining History: Clinical Condition (Good recall, but logorrheic with press for speech. Paranoid-like with impaired insight.) - Smoking History Smoking history: Never smoked Have you smoked in the past 12 months: No - Alcohol/Substance Use Hx Alcohol Use: No History - Admission Reason For Visit: HYPERCALCEMIA - Diagnostics X-ray: Report Reviewed CT Scan: Report Reviewed (2.8cm mixed acute/subacute subdural hematoma with significant mass effect resulting in 11cm of r to L subfalcine herniation.) - General Mental Status: Alert and Oriented, Awake and Alert, Able to Follow Commands, Anxious Attention: Intact Ability to Follow Directions: Good Head/Neck Control: WFL - Hearing Hearing: Functional Hearing: Impaired Hearing Aide: No Speech Evaluation - Communication Primary Language: GUINEAN Communication: Yes: Within Normal Limits - Speech Production Able to Make Needs Known: Yes: WNL Intelligibility: Yes: WNL - Speech Characteristics Voice Loudness: Normal Voice Pitch: Yes: Normal Voice Phonatory-based Quality: Yes: Normal Speech Pattern: Normal Speech Clarity: < 100% Nasal Resonance: Normal Articulation: Yes: Precise - Language/Auditory Comprehension Follows: Yes: 1 Stage Simple Commands Observation: Able to respond to yes/no queries: Yes, Yes/No Confusion: No, Comprehends Conversational Speech: Yes - Language/Verbal Expression Able to Respond to Simple Queries: Yes: WNL Able to Communicate Wants and Needs: Yes: WNL Functional Communication Status: Yes: WNL - Swallow Evaluation/Bedside Assessment Current Nutritional Intake: NPO Oral Secretions: Yes: WFL Dentition: Yes: Adequate Facial Symmetry at Rest: Symmetrical Facial Symmetry on Retraction: Symmetrical Against Resistance Opening: Weak Against Resistance Closing: Weak Pucker Lips: Weak Smile: Weak Lingual Movement: Symmetric Lingual Speed of Movement: Normal Lingual Movement Strgth Against Opposition: Normal Lingual Movement Characteristics: Normal Laryngeal Movement: Labored,delay initiation Labial Seal: WFL Timing of Swallow: Delayed Coughing/Throat Clear: No Change in Voice: No Recommendations - Speech Evaluation, Impression/Plan Impression: Good recall of past events, but logorrheic, tangential with press for speech. No turn-taking in conversation. Constant speaking. Paranoid-like with impaired insight. Delayed swallow onset with aspiration risk. - Disposition Discharge to: Rehabilitation Center - Dysphagia Impressions/Plan Dysphagia Impressions: Ongoing Evaluation *Silent aspiration: cannot be R/O at bedside Dysphagia Treatment Plan: Small Bites, Chin Tuck/Down, Clear Pocket Food, Trial Feedings, Safe Rate, 1/2 tsp. at a time, Elevate HOB during feed Recommendations: Modified Barium Swallow (If cough,congestion,fever), Other ( Monitor tolerance/) - Recommendations Diet Consistency: Other (Full fluids once able to sit up.) Medication Administration: Crushed with applesauce Liquids: Thin Liquids
--- NOTE | 2019-02-27 11:58 | PN ---
Progress Note, Physician Chief Complaint: alert verbal comfortable - Current Medication List Current Medications: Active Medications Cinacalcet (Sensipar -) 30 mg PO DAILY [facility] Last Admin: 02/27/19 10:52 Dose: Not Given Sodium Chloride (Normal Saline -) 1,000 mls @ 100 mls/hr IV ASDIR FARIHA Last Admin: 02/27/19 10:28 Dose: 100 mls/hr Cefazolin Sodium 1 gm/ (Dextrose) 50 mls @ 100 mls/hr IVPB Q8H-IV FARIHA Stop: 02/27/19 17:59 Last Admin: 02/27/19 09:00 Dose: 100 mls/hr Losartan Potassium (Cozaar -) 50 mg PO DAILY [facility] Last Admin: 02/27/19 10:52 Dose: Not Given Pantoprazole Sodium (Protonix Iv) 40 mg IVPUSH DAILY [facility] Last Admin: 02/27/19 09:00 Dose: 40 mg - Objective Vital Signs: Vital Signs Temperature 97.5 F L 02/27/19 10:00 Pulse Rate 80 02/27/19 10:00 Respiratory Rate 17 02/27/19 10:00 Blood Pressure 118/52 L 02/27/19 10:00 O2 Sat by Pulse Oximetry (%) 98 02/26/19 21:00 Constitutional: Yes: Anxious Eyes: Yes: EOM Intact HENT: Yes: Normocephalic Neck: Yes: Trachea Midline Cardiovascular: Yes: Regular Rate and Rhythm Respiratory: Yes: CTA Bilaterally Gastrointestinal: Yes: Normal Bowel Sounds ...Rectal Exam: Yes: Deferred Genitourinary: Yes: WNL Breast(s): Yes: WNL Musculoskeletal: Yes: WNL Extremities: Yes: WNL Edema: No Neurological: Yes: Alert, Oriented Labs: CBC, BMP 02/27/19 05:40 02/27/19 05:40 INR, PTT INR 1.10 (0.83-1.09) H 02/26/19 05:30 Problem List - Problems (1) Hypercalcemia Code(s): E83.52 - HYPERCALCEMIA (2) Subdural hematoma Code(s): S06.5X9A - TRAUM SUBDR HEM W LOC OF UNSP DURATION, INIT (3) Unable to ambulate Code(s): R26.2 - DIFFICULTY IN WALKING, NOT ELSEWHERE CLASSIFIED (4) Hyperparathyroidism Code(s): E21.3 - HYPERPARATHYROIDISM, UNSPECIFIED Assessment/Plan Current Active Problems Hypercalcemia (Acute) Hyperparathyroidism (Acute) Subdural hematoma (Acute) Unable to ambulate (Acute) Abnormal Lab Results 02/26/19 02/27/19 02/27/19 05:30 05:40 05:40 WBC 11.6 H Absolute Neuts (auto) 8.8 H Chloride 109 H Random Glucose 129 H Calcium 10.6 H Alkaline Phosphatase 169 H Total Protein 5.9 L Albumin 3.3 L Crossmatch IS Only See Detail corrected calcium 11.2 plan: ivfluid and continue sensipar 30mg daily follow with serial calcium ck vitamin d 25
--- NOTE | 2019-02-27 12:45 | PN ---
Teaching Attending Note Name of Resident: Kyrie Huggins ATTENDING PHYSICIAN STATEMENT I saw and evaluated the patient. I reviewed the resident's note and discussed the case with the resident. I agree with the resident's findings and plan as documented. SUBJECTIVE: Pt seen and examined in the ICU. s/p right craniotomy/hematoma evacuation. Agitated overnight.Does report some headache. YANNICK with serosanguinous fluid. OBJECTIVE: Vital Signs Period Temp Pulse Resp BP Sys/Mckeon Pulse Ox Last 24 Hr 97.3 F-98.2 F 50-102 17-100 109-158/49-94 95-98 Intake & Output 02/24/19 02/25/19 02/26/19 02/27/19 23:59 23:59 23:59 23:59 Intake Total 1446 1050 Output Total 2462 1505 Balance -1016 -587 Weight 72.665 kg 73.284 kg 73.028 kg Gen: NAD at rest Heart: RRR Lung: decreased breath sounds at the bases Abd: soft, nontender Ext: no edema CBC, BMP 02/27/19 05:40 02/27/19 05:40 Active Medications Cinacalcet (Sensipar -) 30 mg PO DAILY [facility] Last Admin: 02/27/19 10:52 Dose: Not Given Sodium Chloride (Normal Saline -) 1,000 mls @ 100 mls/hr IV ASDIR [facility] Last Admin: 02/27/19 10:28 Dose: 100 mls/hr Cefazolin Sodium 1 gm/ (Dextrose) 50 mls @ 100 mls/hr IVPB Q8H-IV [facility] Stop: 02/27/19 17:59 Last Admin: 02/27/19 09:00 Dose: 100 mls/hr Losartan Potassium (Cozaar -) 50 mg PO DAILY [facility] Last Admin: 02/27/19 10:52 Dose: Not Given Pantoprazole Sodium (Protonix Iv) 40 mg IVPUSH DAILY [facility] Last Admin: 02/27/19 09:00 Dose: 40 mg ASSESSMENT AND PLAN: Acute/Subacute Subdural Hematoma Hypercalcemia/Hyperparathyroidism Parathyroid neoplasm Rhabdomyolysis Dehydration HTN - pain control - IVF - monitor lytes - neuro checks - monitor drain output - activity/DVT prophylaxis per surgery - continue ICU monitoring
--- NOTE | 2019-02-27 16:50 | PN ---
Progress Note (short form) - Note Progress Note: The patient is more awake today as compared to yesterday. Postop Head CTs from yesterday showed significant improvement in the mass effect and midline shift. The CSDH has been completely evacuated and has been replaced with air and fluid. The HOB is now elevated to 30 degrees and he is tolerating a liquid diet. He can be OOB to chair tomorrow and have a PT evaluation. The YANNICK output is tapering down and will be left in for another 24 hours. Will follow.
[2019-02-27] MEDS: ACETAMINOPHEN 325 MG TABLET (FP) PO PRN (17:31)
[2019-02-27 18:16] LABS: CK-MM 100 % (97-100)
--- NOTE | 2019-02-27 18:44 | PN ---
Teaching Attending Note Name of Resident: Hemal Caruso ATTENDING PHYSICIAN STATEMENT I saw and evaluated the patient. I reviewed the resident's note and discussed the case with the resident. I agree with the resident's findings and plan as documented. SUBJECTIVE: PATIENT is comfortable with no acute distress, no shortness of breath, no nausea or vomiting. some headache. no fever or chills. Pt seen in the ICU. s/p right craniotomy/hematoma evacuation. Agitated overnight. YANNICK with serosanguinous fluid. OBJECTIVE: Vital Signs Temperature 97.6 F 02/27/19 18:31 Pulse Rate 70 02/27/19 18:31 Respiratory Rate 19 02/27/19 18:31 Blood Pressure 148/70 02/27/19 18:31 O2 Sat by Pulse Oximetry (%) 98 02/26/19 21:00 GENERAL: The patient is awake, alert, and fully oriented, in no acute distress. HEAD: s/p right craniotomy/hematoma evacuation. YANNICK with serosanguinous fluid. EYES: PERRL, extraocular movements intact, sclera anicteric, conjunctiva clear. ENT: Ears normal, oropharynx clear without exudates, moist mucous membranes. NECK: Trachea midline, full range of motion, supple. LUNGS: Breath sounds equal, clear to auscultation bilaterally, no wheezes, no crackles, no accessory muscle use. HEART: Regular rate and rhythm, S1, S2 without murmur, rub or gallop. ABDOMEN: Soft, NT,ND , normoactive bowel sounds, no guarding, no rebound, no hepatosplenomegaly, no masses. EXTREMITIES: 2+ pulses, warm, well-perfused, no edema. NEUROLOGICAL: Cranial nerves II through XII grossly intact. Normal speech, gait not observed. PSYCH: Normal mood, normal affect. SKIN: Warm, dry, normal turgor, no rashes or lesions noted CBCD WBC 11.6 K/mm3 (4.0-10.0) H 02/27/19 05:40 RBC 4.26 M/mm3 (4.00-5.60) 02/27/19 05:40 Hgb 12.0 GM/dL (11.7-16.9) 02/27/19 05:40 Hct 37.2 % (35.4-49) 02/27/19 05:40 MCV 87.2 fl (80-96) 02/27/19 05:40 MCHC 32.2 g/dl (32.0-35.9) 02/27/19 05:40 RDW 14.6 % (11.9-15.9) 02/27/19 05:40 Plt Count 190 K/MM3 (134-434) D 02/27/19 05:40 MPV 9.3 fl (7.5-11.1) 02/27/19 05:40 CMP Sodium 142 mmol/L (136-145) 02/27/19 05:40 Potassium 4.4 mmol/L (3.5-5.1) 02/27/19 05:40 Chloride 109 mmol/L (98-107) H 02/27/19 05:40 Carbon Dioxide 25 mmol/L (21-32) 02/27/19 05:40 Anion Gap 8 MMOL/L (8-16) 02/27/19 05:40 BUN 12 mg/dL (7-18) 02/27/19 05:40 Creatinine 0.9 mg/dL (0.55-1.3) 02/27/19 05:40 Random Glucose 129 mg/dL (74-106) H 02/27/19 05:40 Calcium 10.6 mg/dL (8.5-10.1) H 02/27/19 05:40 Total Bilirubin 1.0 mg/dL (0.2-1) 02/27/19 05:40 AST 22 U/L (15-37) 02/27/19 05:40 ALT 25 U/L (13-61) 02/27/19 05:40 Alkaline Phosphatase 169 U/L (45-117) H 02/27/19 05:40 Total Protein 5.9 g/dl (6.4-8.2) L 02/27/19 05:40 Albumin 3.3 g/dl (3.4-5.0) L 02/27/19 05:40 CARDIAC ENZYMES Creatine Kinase 264 U/L (26-308) 02/26/19 05:30 Troponin I 0.02 ng/ml (0.00-0.05) 02/26/19 05:30 Current Medications Generic Name Dose Route Start Last Admin Trade Name Freq PRN Reason Stop Dose Admin Acetaminophen 650 mg 02/27/19 17:17 02/27/19 17:31 Tylenol - PO 650 mg Q6H PRN Administration PAIN LEVEL 4 - 6 Cinacalcet 30 mg 02/27/19 10:00 02/27/19 17:01 Sensipar - PO 30 mg DAILY FARIHA Administration Sodium Chloride 1,000 mls @ 100 mls/hr 02/26/19 14:06 02/27/19 14:43 Normal Saline - IV Not Given ASDIR FARIHA Losartan Potassium 50 mg 02/27/19 10:00 02/27/19 10:52 Cozaar - PO Not Given DAILY FARIHA Pantoprazole Sodium 40 mg 02/26/19 10:00 02/27/19 09:00 Protonix Iv IVPUSH 40 mg DAILY FARIHA Administration Home Medications Medication Instructions Recorded Cinacalcet HCl [Sensipar -] 30 mg PO DAILY 02/26/19 Losartan Potassium 50 mg PO DAILY 02/26/19 Laboratory Tests 02/26/19 02/27/19 02/27/19 05:30 05:40 05:40 Ionized Calcium 6.1 H Alkaline Phosphatase 169 H Albumin 3.3 L PTH Intact 68 H 02/28/19 03/01/19 05:51 05:10 Ionized Calcium Alkaline Phosphatase 141 H 147 H Albumin 2.9 L 3.2 L PTH Intact ASSESSMENT AND PLAN: Patient is an 88yo male with PMhx of HTN, with 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 he was found to have Right subdural hematoma # POD #1 s/p right craniotomy/hematoma evacuation. YANNICK with serosanguinous fluid , due to acute on chronic subdural hematoma s/p fall in an outpatient setting ; subdural hematoma with mass effect and mid line shift . continue neuro exam . Elevate HOB. # Acute mild Rhabdo :continue to monitor , IVF. #Mild hypercalcemia : due to hyperparathyroidism per report. # HTN: resume losartan DVT PX : Scds ICU level of care
[2019-02-28] MEDS: ACETAMINOPHEN 325 MG TABLET (FP) PO PRN ×2 (01:42→15:21)
[2019-02-28 06:44] LABS: BASO % 0.5 % (0-2.0); EOS % 4.6 % (0-4.5); HEMATOCRIT 33.5 % (35.4-49); LYMPH % 20.1 % (8-40); MCH 28.9 pg (25.7-33.7); MCHC 32.9 g/dl (32.0-35.9); MEAN CELL VOLUME 87.8 fl (80-96); MEAN PLT VOLUME 9.3 fl (7.5-11.1); MONO % 10.7 % (3.8-10.2); NEUT % 64.1 % (42.8-82.8); PLATELET COUNT 164 K/MM3 (134-434); RBC 3.82 M/mm3 (4.00-5.60); RDW 14.2 % (11.9-15.9); WHITE BLOOD COUNT 9.8 K/mm3 (4.0-10.0)
[2019-02-28 06:52] LABS: ALBUMIN 2.9 g/dl (3.4-5.0); BILIRUBIN,TOTAL 0.6 mg/dL (0.2-1); CALCIUM 9.6 mg/dL (8.5-10.1); CREATININE 0.7 mg/dL (0.55-1.3); MAGNESIUM 2.2 mg/dL (1.8-2.4); PHOSPHOROUS 2.6 mg/dL (2.5-4.9); POTASSIUM 3.8 mmol/L (3.5-5.1); TOT PROT 5.3 g/dl (6.4-8.2)
--- NOTE | 2019-02-28 08:21 | PN ---
Physical Exam: SUBJECTIVE: Patient seen and examined at bedside. No acute events overnight. 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 no complaints. tolerating full liquid diet. +flatus. denies fever, chills, cp, sob, n/v/d, urinary sxs, saddle anesthesia. OBJECTIVE: Vital Signs Period Temp Pulse Resp BP Sys/Mckeon Pulse Ox Last 24 Hr 97.5 F-98 F 62-84 12-22 117-166/52-93 GENERAL: AOX3, talking slowly, NAD. +davalos HEAD: +Subgaleal YANNICK drain EYES: Pupils pinpoint equal, round and reactive to light, L eye lens opacity EARS, NOSE, THROAT: MMM. Poor dentition NECK: supple LUNGS: CTAB HEART: RRR, normal S1 and S2 ABDOMEN: Soft, NTND, normoactive bowel sounds, MUSCULOSKELETAL: Normal range of motion at all joints. No bony deformities or tenderness. LOWER EXTREMITIES: 2+ pulses, warm, well-perfused. No calf tenderness. No peripheral edema. NEUROLOGICAL: Slow/ low toned speech. gait not observed. Strength 4/5 LUE. RUE 3/5 (chronic due to right shoulder injury). Strength 4/5 LE b/l. Sensation symmetrically intact b/l upper and lower extremities. CN 2-12 intact Laboratory Results - last 24 hr 02/26/19 02/26/19 02/28/19 05:30 05:30 05:51 WBC 9.8 RBC 3.82 L Hgb 11.0 L Hct 33.5 L MCV 87.8 MCH 28.9 MCHC 32.9 RDW 14.2 Plt Count 164 MPV 9.3 Absolute Neuts (auto) 6.3 Neutrophils % 64.1 Lymphocytes % 20.1 D Monocytes % 10.7 H Eosinophils % 4.6 H D Basophils % 0.5 Nucleated RBC % 0 Sodium Potassium Chloride Carbon Dioxide Anion Gap BUN Creatinine Est GFR (CKD-EPI)AfAm Est GFR (CKD-EPI)NonAf Random Glucose Calcium Ionized Calcium 6.1 H Phosphorus Magnesium Total Bilirubin AST ALT Alkaline Phosphatase CK-BB (CK-1) 0 CK/CKMB % Calc 0 Total Protein Albumin 02/28/19 05:51 WBC RBC Hgb Hct MCV MCH MCHC RDW Plt Count MPV Absolute Neuts (auto) Neutrophils % Lymphocytes % Monocytes % Eosinophils % Basophils % Nucleated RBC % Sodium 141 Potassium 3.8 Chloride 108 H Carbon Dioxide 27 Anion Gap 5 L BUN 11 Creatinine 0.7 Est GFR (CKD-EPI)AfAm 97.65 Est GFR (CKD-EPI)NonAf 84.26 Random Glucose 105 Calcium 9.6 Ionized Calcium Phosphorus 2.6 Magnesium 2.2 Total Bilirubin 0.6 AST 22 ALT 24 Alkaline Phosphatase 141 H CK-BB (CK-1) CK/CKMB % Calc Total Protein 5.3 L Albumin 2.9 L Active Medications Generic Name Dose Route Start Last Admin Trade Name Freq PRN Reason Stop Dose Admin Acetaminophen 650 mg 02/27/19 17:17 02/28/19 01:42 Tylenol - PO 650 mg Q6H PRN Administration PAIN LEVEL 4 - 6 Cinacalcet 30 mg 02/27/19 10:00 02/27/19 17:01 Sensipar - PO 30 mg DAILY FARIHA Administration Sodium Chloride 1,000 mls @ 100 mls/hr 02/26/19 14:06 02/27/19 14:43 Normal Saline - IV Not Given ASDIR FARIHA Losartan Potassium 50 mg 02/27/19 10:00 02/27/19 10:52 Cozaar - PO Not Given DAILY FARIHA Pantoprazole Sodium 40 mg 02/26/19 10:00 02/27/19 09:00 Protonix Iv IVPUSH 40 mg DAILY FARIHA Administration [id number] CT/HEAD CT WITHOUT CONTRAST CT scan of the brain c-. Trapped under exercise machine. Findings. The head was tilted during the acquisition of images Serial axial images of the brain were obtained from foramen magnum to the cranial vertex without intravenous contrast. The study was supplemented with computer-generated coronal and sagittal reconstruction images. There is large right subdural hematoma extending from the superior aspect of the right temporal lobe convexity toward the vertex, with multiple internal septations, multiloculated acute on chronic subdural hematoma with fluid levels. Maximal width of the subdural hematoma approximately 2.8 cm. Significant mass effect on right lateral ventricle with midline shift, subfalcine herniation (adriana 10-11mm). No evidence of hydrocephalus. No evidence of acute intraventricular hemorrhage. Cerebral cortical atrophy without effacement of the cortical sulci sylvian fissure. No evidence of acute intra-axial hematoma. No evidence of uncal herniation. No subarachnoid hemorrhage is seen. Examination of the bone windows show no fracture. The visualized paranasal sinuses and mastoid air cells are clear. Symmetrical ocular globes. Unremarkable retro-orbital soft tissues. Impression. There is large right subdural hematoma extending from the superior aspect of the right temporal lobe convexity toward the vertex, with multiple internal septations, multiloculated acute on chronic subdural hematoma with fluid levels. Maximal width of the subdural hematoma approximately 2.8 cm. Significant mass effect on right lateral ventricle with midline shift, subfalcine herniation (adriana 10-11mm). No evidence of hydrocephalus. No evidence of uncal herniation. Reported By: Murary Kaba MD 02/26/19 0803 [id number] CT/HEAD CT WITHOUT CONTRAST Cranial CT without contrast Clinical information given: postop In comparison to a CT study performed 15 hours earlier note is made of interval right parietal craniotomy with evacuation of the majority of the very large right- sided panhemispheric acute on chronic subdural hematoma. Air is now visualized within the majority of the dilated subdural space. On the current exam there is moderate to marked leftward midline displacement which appears mildly improved. As on the preoperative study the left frontal calvarium at the high convexity level demonstrates an attenuated appearance which could conceivably be postsurgical. Correlate clinically. Impression: As noted above. Reported By: Mars Burgess MD 02/26/19 1816 [id number] CT/HEAD CT WITHOUT CONTRAST Clinical information. AMS. CT brain noncontrast study. Direct axial images were obtained with coronal, sagittal reconstruction. Comparison study. Postop CT of the brain February 26, 2019 at 5:18 PM. Status post evacuation of acute on chronic subdural hematoma. Status post right frontal/parietal craniotomy. Right pneumocephalus with maximal width approximately 2.6 cm, with mass effect on the right frontal cerebral convexity. Small residual hyperdense blood products are seen along the inner table of the right frontal parietal calvarium toward the vertex. Air-fluid level is seen with dependent hypodense extra-axial fluid measuring 1.4 HU similar to CSF 2.2 HU (hygroma). Partially effaced right sylvian fissure. Cortical sulci are partially effaced. There is mild mass effect on the right lateral ventricle with midline shift of the septum pellucidum to the left side unchanged from prior postop CT of the brain. Subfalcine herniation persists. Overall decrease mass effect, midline shift, subfalcine herniation in comparison to preoperative CT of the brain. No evidence of hydrocephalus. No evidence subarachnoid hemorrhage. No evidence of acute intra-axial collection. No CT evidence of acute territorial ischemic changes. No evidence of opacification of the mastoid air cells, visualized paranasal sinuses. Impression. Please refer to the body of report Reported By: Murray Kaba MD 02/27/19 0824 ASSESSMENT/PLAN: 88 yo M with PMHx of HTN, BPH, recent diagnosis of Parathyroid neoplasm and hypercalcemia and recent fall (8 wks ago) p/w 2 day hx of generalized weakness and poor PO intake/Dehydration in setting of being trapped under exercise equipment. 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 approximately 2.8 cm. Significant mass effect on R lateral ventricle w/ midline shift, subfalcine herniation (adriana 10-11mm). Neuro exam intact, no focal neuro deficits, AOX3 and agreed to the surgery. Now POD2 Right Sided Craniotomy and Evacuation of Subacute on Chronic Subdural Hematoma Neuro exam unchanged. rpt CT headx2, reviewed above, shows mild improvement of midline shift. afebrile VSS Neurosurgery consulted, Dr Carnes neurochecks Q1h incentive spirometry Maintaining systolic BP <150mmHg per neurosurgery recs. fall precautions tolerating full liquid diet, advance as tolerated, aspiration precautions s/p post op cefazolin Generalized weakness, and poor PO intake/Dehydration in setting of mild hypercalcemia and being trapped under exercise equipment Hypercalcemia likely 2/2 parathyroid mass, pt worked up recently at [facility], records obtained and placed in chart. c/w NS @100/hr TSH nl, f/u Cortisol levels, 24 hr Urinary calcium, ionized calcium, urinary cortisol, Vit D levels (authorization required, cannot order) elevated PTH 68 CXR no acute pathology, +old rib trauma UA, ucx neg [id number], few PVCs, Q waves- III, AVF, II, normal axis, no MOMO/STD, QTc-401 , normal intervals trop negx2 Endocrine Consulted, Dr Neshiwat PT eval Parathyroid neoplasm: Recently diagnosed at [facility], records obtained and placed in chart. At [facility] PTH was 121, vit D was nl 25, 1, 25 vit D was nl, kidney U/S nl. pt was eval by their endo Dr Fountain who did not think pt would be a good candidate for parathyroid surgery and would instead benefit from med management including cinicalcet w/ possible addition of antiresorptive (alendronate) at f/u within a few weeks -elevated PTH 68 Mild Rhabdo - resolved w/ IVF. HTN c/w home Losartan 50mg qd avoid thiazides in setting of hypercalcemia Maintaining systolic BP <150mmHg per neurosurgery recs. Chronic limited right shoulder - exacerbated by recent fall and now again by exercise equipment PT eval FEN NS @100/hr replete prn tolerating full liquid diet, advance as tolerated, aspiration precautions PPx: Hold SQH- CT head showed bleed above SCDs protonix daily to avoid Cushings ulcer Code: Full code Dispo: Med Surg Visit type - Emergency Visit Emergency Visit: Yes ED Registration Date: 02/26/19 Care time: The patient presented to the Emergency Department on the above date and was hospitalized for further evaluation of their emergent condition. - New Patient This patient is new to me today: Yes Date on this admission: 02/28/19 - Critical Care Critical Care patient: Yes Total Critical Care Time (in minutes): 38 Critical Care Statement: The care of this patient involved high complexity decision making to prevent further life threatening deterioration of the patient 's condition and/or to evaluate & treat vital organ system(s) failure or risk of failure.
--- NOTE | 2019-02-28 08:33 | PN ---
Physical Exam: SUBJECTIVE: Patient seen and examined at bedside this morning. No acute overnight events. Patient tolerating clear liquid diet, and sitting in chair. Denies subjective fevers, chills, shortness of breath, chest pain, palpitations , abdominal pain, nausea, vomiting. OBJECTIVE: Vital Signs Period Temp Pulse Resp BP Sys/Mckeon Pulse Ox Last 24 Hr 97.5 F-98 F 62-84 12-22 117-166/52-93 GENERAL: The patient is awake, alert, and oriented, in no acute distress. HEAD: Normocephalic. YANNICK drain with serosanguinous discharge. EYES: PERRL, extraocular movements intact without nystagmus, sclera anicteric, conjunctiva clear. ENT: Oropharynx clear without exudates, moist mucous membranes. NECK: Trachea midline, supple without lymphadenopathy LUNGS: Breath sounds equal, clear to auscultation bilaterally. No wheezes, no crackles, no accessory muscle use. HEART: Regular rate and rhythm, S1, S2 without murmur, rub or gallop. ABDOMEN: Soft, nontender, nondistended. Normoactive bowel sounds, no guarding, no rebound tenderness. EXTREMITIES: 2+ radial, dorsalis pedis pulses bilaterally, warm, well-perfused. No lower extremity edema. NEUROLOGICAL: Cranial nerves II through XII grossly intact, with exception of slight right sided ptosis, and nasiolabial flattening. Strength 4/5 left upper extremity. Right upper extremity 3/5 (chronic due to right shoulder injury). Strength 4/5 bilateral lower extremities. Sensation symmetrically intact bilateral upper and lower extremities. PSYCH: Normal mood, normal affect, appropriate upon my encounter. SKIN: Warm, dry. Laboratory Results - last 24 hr 02/26/19 02/26/19 02/28/19 05:30 05:30 05:51 WBC 9.8 RBC 3.82 L Hgb 11.0 L Hct 33.5 L MCV 87.8 MCH 28.9 MCHC 32.9 RDW 14.2 Plt Count 164 MPV 9.3 Absolute Neuts (auto) 6.3 Neutrophils % 64.1 Lymphocytes % 20.1 D Monocytes % 10.7 H Eosinophils % 4.6 H D Basophils % 0.5 Nucleated RBC % 0 Sodium Potassium Chloride Carbon Dioxide Anion Gap BUN Creatinine Est GFR (CKD-EPI)AfAm Est GFR (CKD-EPI)NonAf Random Glucose Calcium Ionized Calcium 6.1 H Phosphorus Magnesium Total Bilirubin AST ALT Alkaline Phosphatase CK-BB (CK-1) 0 CK/CKMB % Calc 0 Total Protein Albumin 02/28/19 05:51 WBC RBC Hgb Hct MCV MCH MCHC RDW Plt Count MPV Absolute Neuts (auto) Neutrophils % Lymphocytes % Monocytes % Eosinophils % Basophils % Nucleated RBC % Sodium 141 Potassium 3.8 Chloride 108 H Carbon Dioxide 27 Anion Gap 5 L BUN 11 Creatinine 0.7 Est GFR (CKD-EPI)AfAm 97.65 Est GFR (CKD-EPI)NonAf 84.26 Random Glucose 105 Calcium 9.6 Ionized Calcium Phosphorus 2.6 Magnesium 2.2 Total Bilirubin 0.6 AST 22 ALT 24 Alkaline Phosphatase 141 H CK-BB (CK-1) CK/CKMB % Calc Total Protein 5.3 L Albumin 2.9 L Active Medications Generic Name Dose Route Start Last Admin Trade Name Freq PRN Reason Stop Dose Admin Acetaminophen 650 mg 02/27/19 17:17 02/28/19 01:42 Tylenol - PO 650 mg Q6H PRN Administration PAIN LEVEL 4 - 6 Cinacalcet 30 mg 02/27/19 10:00 02/27/19 17:01 Sensipar - PO 30 mg DAILY FARIHA Administration Sodium Chloride 1,000 mls @ 100 mls/hr 02/26/19 14:06 02/27/19 14:43 Normal Saline - IV Not Given ASDIR FARIHA Losartan Potassium 50 mg 02/27/19 10:00 02/27/19 10:52 Cozaar - PO Not Given DAILY FARIHA Pantoprazole Sodium 40 mg 02/26/19 10:00 02/27/19 09:00 Protonix Iv IVPUSH 40 mg DAILY FARIHA Administration IMAGING: Initial CT head shows large right sided subdural hematoma, maximal width 2.8cm, with significant mass effect on right ventricle, midline shift and subfalcine herniation (10-11mm) Postoperative CT head imaging shows decrease of mass effect, midline shift, and subfalcine herniation. No acute ischemic changes. ASSESSMENT/PLAN: Patient is an 88 year old male with history of parathyroid neoplasm, hypertension admitted to ICU for subacute/ acute subdural hematoma. Neurologic -Acute on chronic subdural hematoma. -He is POD #2 s/p right craniotomy and evacuation of subdural hematoma. -Patient is awake, alert, fully oriented. -Neurosurgery recommendations (Dr. Carnes) appreciated. Cardiac -History of hypertension -Maintaining systolic BP below 150mmHg per neurosurgery recommendations. Pulmonary -Patient is currently not intubated. Saturating well on room air. -Maintain oxygen saturation greater than 90% Gastrointestinal -Full liquid diet. -Speech, swallow evaluation appreciated. -Protonix 40mg IV daily Endocrine -History of parathyroid neoplasm -Hypercalcemia, Calcium today 9.6 -Sensipar 30mg PO daily -Will need to obtain records from [facility] -Endocrinology consult (Dr. Petit) appreciated. FEN -No IV fluids indicated -Follow CMP -Soft diet Prophylaxis -SCDs bilateral lower extremities. Holding chemical anticoagulation due to recent neurosurgical intervention. Disposition -Patient medically stable for transfer to Stroke floor. Visit type - Emergency Visit Emergency Visit: Yes ED Registration Date: 02/26/19 Care time: The patient presented to the Emergency Department on the above date and was hospitalized for further evaluation of their emergent condition. - New Patient This patient is new to me today: No - Critical Care Critical Care patient: Yes Total Critical Care Time (in minutes): 35 Critical Care Statement: The care of this patient involved high complexity decision making to prevent further life threatening deterioration of the patient 's condition and/or to evaluate & treat vital organ system(s) failure or risk of failure. - Discharge Referral Referred to [facility] Med [facility].: No
[2019-02-28] MEDS ORDERED: PT OWN MED DRAWER 7, Y5N ONE (09:30)
[2019-02-28] MEDS: CINACALCET HCL 30 MG TAB (FP) PO SCH (09:31)
[2019-02-28] MEDS: LOSARTAN POTASSIUM 50 MG TABLET (FP) PO SCH (09:31)
[2019-02-28] MEDS: PANTOPRAZOLE SODIUM 40 MG VIAL IVPUSH SCH (09:31)
--- NOTE | 2019-02-28 13:38 | PN ---
Teaching Attending Note Name of Resident: Kyrie Huggins ATTENDING PHYSICIAN STATEMENT I saw and evaluated the patient. I reviewed the resident's note and discussed the case with the resident. I agree with the resident's findings and plan as documented. SUBJECTIVE: Patient seen and examined in the ICU. POD #1 right craniotomy/hematoma evacuation. Awake and alert. Denies LAUREN. No CP or SOB. OBJECTIVE: Intake & Output 02/25/19 02/26/19 02/27/19 02/28/19 23:59 23:59 23:59 23:59 Intake Total 1446 3720 1300 Output Total 2462 4225 1315 Balance -1016 -505 -15 Weight 160 lb 3.2 oz 161 lb 9 oz 161 lb 169 lb 9 oz Last Vital Signs Temp Pulse Resp BP Pulse Ox 97.6 F 71 19 153/74 98 02/28/19 11:06 02/28/19 12:00 02/28/19 12:00 02/28/19 12:00 02/26/19 21:00 Active Medications Acetaminophen (Tylenol -) 650 mg PO Q6H PRN PRN Reason: PAIN LEVEL 4 - 6 Last Admin: 02/28/19 01:42 Dose: 650 mg Cinacalcet (Sensipar -) 30 mg PO DAILY [facility] Last Admin: 02/28/19 09:31 Dose: 30 mg Sodium Chloride (Normal Saline -) 1,000 mls @ 100 mls/hr IV ASDIR [facility] Last Admin: 02/27/19 14:43 Dose: Not Given Losartan Potassium (Cozaar -) 50 mg PO DAILY [facility] Last Admin: 02/28/19 09:31 Dose: 50 mg Pantoprazole Sodium (Protonix Iv) 40 mg IVPUSH DAILY [facility] Last Admin: 02/28/19 09:31 Dose: 40 mg Gen: NAD at rest Heart: RRR Lung: decreased breath sounds at the bases Abd: soft, nontender Ext: no edema Laboratory Results - last 24 hr 02/26/19 02/26/19 02/27/19 05:30 05:30 05:40 WBC RBC Hgb Hct MCV MCH MCHC RDW Plt Count MPV Absolute Neuts (auto) Neutrophils % Lymphocytes % Monocytes % Eosinophils % Basophils % Nucleated RBC % Sodium Potassium Chloride Carbon Dioxide Anion Gap BUN Creatinine Est GFR (CKD-EPI)AfAm Est GFR (CKD-EPI)NonAf Random Glucose Calcium Ionized Calcium 6.1 H Phosphorus Magnesium Total Bilirubin AST ALT Alkaline Phosphatase CK-BB (CK-1) 0 CK/CKMB % Calc 0 Total Protein Albumin PTH Intact 68 H 02/28/19 02/28/19 05:51 05:51 WBC 9.8 RBC 3.82 L Hgb 11.0 L Hct 33.5 L MCV 87.8 MCH 28.9 MCHC 32.9 RDW 14.2 Plt Count 164 MPV 9.3 Absolute Neuts (auto) 6.3 Neutrophils % 64.1 Lymphocytes % 20.1 D Monocytes % 10.7 H Eosinophils % 4.6 H D Basophils % 0.5 Nucleated RBC % 0 Sodium 141 Potassium 3.8 Chloride 108 H Carbon Dioxide 27 Anion Gap 5 L BUN 11 Creatinine 0.7 Est GFR (CKD-EPI)AfAm 97.65 Est GFR (CKD-EPI)NonAf 84.26 Random Glucose 105 Calcium 9.6 Ionized Calcium Phosphorus 2.6 Magnesium 2.2 Total Bilirubin 0.6 AST 22 ALT 24 Alkaline Phosphatase 141 H CK-BB (CK-1) CK/CKMB % Calc Total Protein 5.3 L Albumin 2.9 L PTH Intact ASSESSMENT AND PLAN: Acute/Subacute Subdural Hematoma Hypercalcemia/Hyperparathyroidism Parathyroid neoplasm Rhabdomyolysis Dehydration HTN - pain control - monitor lytes - neuro checks - Incentive Spirometry - monitor drain output - activity/DVT prophylaxis per surgery - Neuro floor when OK with Neurosurgery Dr Gupta
--- NOTE | 2019-02-28 13:51 | PN ---
Progress Note, Physician Chief Complaint: s/p craniotomy evacuation of hemotoma History of Present Illness: post op day two - Current Medication List Current Medications: Active Medications Acetaminophen (Tylenol -) 650 mg PO Q6H PRN PRN Reason: PAIN LEVEL 4 - 6 Last Admin: 02/28/19 01:42 Dose: 650 mg Cinacalcet (Sensipar -) 30 mg PO DAILY [facility] Last Admin: 02/28/19 09:31 Dose: 30 mg Sodium Chloride (Normal Saline -) 1,000 mls @ 100 mls/hr IV ASDIR [facility] Last Admin: 02/27/19 14:43 Dose: Not Given Losartan Potassium (Cozaar -) 50 mg PO DAILY [facility] Last Admin: 02/28/19 09:31 Dose: 50 mg Pantoprazole Sodium (Protonix Iv) 40 mg IVPUSH DAILY [facility] Last Admin: 02/28/19 09:31 Dose: 40 mg - Objective Vital Signs: Vital Signs Temperature 97.6 F 02/28/19 11:06 Pulse Rate 71 02/28/19 12:00 Respiratory Rate 02/28/19 12:00 Blood Pressure 153/74 02/28/19 12:00 O2 Sat by Pulse Oximetry (%) 98 02/26/19 21:00 Constitutional: Yes: Well Nourished Cardiovascular: Yes: WNL Respiratory: Yes: WNL Gastrointestinal: Yes: WNL Labs: CBC, BMP 02/28/19 05:51 02/28/19 05:51 INR, PTT INR 1.10 (0.83-1.09) H 02/26/19 05:30 Assessment/Plan Pain controlled, no adverse anesthetic effects, dept of anesthesia will sign off care at this time.
[2019-02-28] MEDS: SODIUM CHLORIDE 1,000 ML IV SCH (15:00)
--- NOTE | 2019-02-28 15:50 | PN ---
Progress Note, BUDDHIST MONK - Note Progress Note: Selected Entries 02/27/19 02/27/19 02/27/19 02:00 06:00 07:00 Breakfast Lunch Supper Temperature 97.6 F 98.1 F 98 F 02/27/19 02/27/19 02/27/19 07:30 10:00 12:00 Breakfast NPO Lunch NPO Supper Temperature 98.2 F 97.5 F L 97.5 F L 02/27/19 02/27/19 02/27/19 14:00 15:36 17:00 Breakfast Lunch 75% Supper Temperature 97.7 F 97.6 F 02/27/19 02/27/19 02/27/19 18:31 21:00 22:15 Breakfast Lunch Supper 50% Temperature 97.6 F 97.8 F 02/28/19 02/28/19 02/28/19 00:00 04:00 10:00 Breakfast 50% Lunch Supper Temperature 98 F 97.9 F 02/28/19 02/28/19 02/28/19 11:06 14:00 15:00 Breakfast 100% Lunch 100% Supper Temperature 97.6 F 97.8 F Laboratory Tests 02/27/19 02/28/19 05:40 05:51 WBC 11.6 H 9.8 OOB, tolerating full fluids. Much improved cognitively. Feeling tired. Swallowing reassessed. Occasional pooling of saliva in oral cavity. Slow, fairly efficient mastication. Concerned about reflux with hospital food. He takes Nexium at home and is careful what he eats eg Decaf coffee only. Assist with meals please. Also concerned about feeding himself solid food due to overall weakness. REC: Trial of soft, cut up foods. Thin liquids. OOB for meals. Remain upright for at least 1 hour after meals. HOB elevated to 45 degrees. GERD precautions eg no caffiene, carbonation, citrus,tomatoes,onions, deborah, mints
--- NOTE | 2019-02-28 15:56 | PATH ---
Surgical Pathology Report Patient Name: TUCKER ROSSI [facility]. Rec. #: [id number] /Age/Gender: 1930 (Age: 88) / M Account: [id number] Location: ICU [facility] Taken: 02/26/2019 Received: 02/27/2019 Reported: 02/28/2019 Physicians: MD Malini Coker M.D. Specimen(s) Received SUBDURAL MEMBRANE Clinical History Subdural hematoma Final Diagnosis LABELED "SUBDURAL MEMBRANE", REMOVAL: BLOOD CLOT, RECENT, CONSISTENT HEMATOMA. Electronically Signed Kennedy Gloria M.D. Gross Description Received in formalin labeled "subdural membrane," is a 2.4 x 1.8 x 0.2 cm portion of brown blood clot. The specimen is submitted in toto in one cassette. /02/27/2019 saudi02/27/2019
--- NOTE | 2019-02-28 19:49 | PN ---
Teaching Attending Note Name of Resident: Hemal Caruso ATTENDING PHYSICIAN STATEMENT I saw and evaluated the patient. I reviewed the resident's note and discussed the case with the resident. I agree with the resident's findings and plan as documented. SUBJECTIVE: Patient is comfortable with no acute distress, no nausea or vomiting. Denies any headache. still draining minimally. OBJECTIVE: Vital Signs Temperature 97.8 F 02/28/19 14:00 Pulse Rate 95 H 02/28/19 18:00 Respiratory Rate 20 02/28/19 18:00 Blood Pressure 131/80 02/28/19 18:00 O2 Sat by Pulse Oximetry (%) 98 02/26/19 21:00 GENERAL: The patient is awake, alert, and fully oriented, in no acute distress. HEAD: s/p right craniotomy/hematoma evacuation. draining minimally. EYES: PERRL, extraocular movements intact, sclera anicteric, conjunctiva clear. ENT: Ears normal, oropharynx clear without exudates, moist mucous membranes. NECK: Trachea midline, full range of motion, supple. LUNGS: Breath sounds equal, clear to auscultation bilaterally, no wheezes, no crackles, no accessory muscle use. HEART: Regular rate and rhythm, S1, S2 without murmur, rub or gallop. ABDOMEN: Soft, NT,ND , normoactive bowel sounds, no guarding, no rebound, no hepatosplenomegaly, no masses. EXTREMITIES: 2+ pulses, warm, well-perfused, no edema. NEUROLOGICAL: Cranial nerves II through XII grossly intact. Normal speech. PSYCH: Normal mood, normal affect. SKIN: Warm, dry, normal turgor, no rashes or lesions noted Neuro: No facial droop, EOMI, round equal pupils, reactive to light. tongue at mid line. drainage is removed. WBC 9.8 K/mm3 (4.0-10.0) 02/28/19 05:51 RBC 3.82 M/mm3 (4.00-5.60) L 02/28/19 05:51 Hgb 11.0 GM/dL (11.7-16.9) L 02/28/19 05:51 Hct 33.5 % (35.4-49) L 02/28/19 05:51 MCV 87.8 fl (80-96) 02/28/19 05:51 MCHC 32.9 g/dl (32.0-35.9) 02/28/19 05:51 RDW 14.2 % (11.9-15.9) 02/28/19 05:51 Plt Count 164 K/MM3 (134-434) 02/28/19 05:51 MPV 9.3 fl (7.5-11.1) 02/28/19 05:51 CMP Sodium 141 mmol/L (136-145) 02/28/19 05:51 Potassium 3.8 mmol/L (3.5-5.1) 02/28/19 05:51 Chloride 108 mmol/L (98-107) H 02/28/19 05:51 Carbon Dioxide 27 mmol/L (21-32) 02/28/19 05:51 Anion Gap 5 MMOL/L (8-16) L 02/28/19 05:51 BUN 11 mg/dL (7-18) 02/28/19 05:51 Creatinine 0.7 mg/dL (0.55-1.3) 02/28/19 05:51 Random Glucose 105 mg/dL (74-106) 02/28/19 05:51 Calcium 9.6 mg/dL (8.5-10.1) 02/28/19 05:51 Total Bilirubin 0.6 mg/dL (0.2-1) 02/28/19 05:51 AST 22 U/L (15-37) 02/28/19 05:51 ALT 24 U/L (13-61) 02/28/19 05:51 Alkaline Phosphatase 141 U/L (45-117) H 02/28/19 05:51 Total Protein 5.3 g/dl (6.4-8.2) L 02/28/19 05:51 Albumin 2.9 g/dl (3.4-5.0) L 02/28/19 05:51 CARDIAC ENZYMES Creatine Kinase 264 U/L (26-308) 02/26/19 05:30 Troponin I 0.02 ng/ml (0.00-0.05) 02/26/19 05:30 Current Medications Generic Name Dose Route Start Last Admin Trade Name Freq PRN Reason Stop Dose Admin Acetaminophen 650 mg 02/27/19 17:17 02/28/19 15:21 Tylenol - PO 650 mg Q6H PRN Administration PAIN LEVEL 4 - 6 Cinacalcet 30 mg 02/27/19 10:00 02/28/19 09:31 Sensipar - PO 30 mg DAILY FARIHA Administration Sodium Chloride 1,000 mls @ 100 mls/hr 02/26/19 14:06 02/28/19 15:00 Normal Saline - IV 100 mls/hr ASDIR FARIHA Administration Losartan Potassium 50 mg 02/27/19 10:00 02/28/19 09:31 Cozaar - PO 50 mg DAILY FARIHA Administration Pantoprazole Sodium 40 mg 03/01/19 10:00 Protonix - PO DAILY [facility] Tamsulosin HCl 0.4 mg 03/01/19 08:30 Flomax - PO DAILY@0830 [facility] Home Medications Medication Instructions Recorded Cinacalcet HCl [Sensipar -] 30 mg PO DAILY 02/26/19 Losartan Potassium 50 mg PO DAILY 02/26/19 Laboratory Tests 02/25/19 02/26/19 02/26/19 22:45 05:30 05:30 Calcium 11.4 H Ionized Calcium 6.1 H Alkaline Phosphatase Creatine Kinase 404 H 264 Albumin PTH Intact 02/27/19 02/27/19 02/28/19 05:40 05:40 05:51 Calcium Ionized Calcium Alkaline Phosphatase 169 H 141 H Creatine Kinase Albumin 3.3 L 2.9 L PTH Intact 68 H Laboratory Tests 02/25/19 02/26/19 02/26/19 22:45 05:30 05:30 Calcium 11.4 H Ionized Calcium 6.1 H Alkaline Phosphatase Creatine Kinase 404 H 264 Albumin PTH Intact 02/27/19 02/27/19 02/28/19 05:40 05:40 05:51 Calcium Ionized Calcium Alkaline Phosphatase 169 H 141 H Creatine Kinase Albumin 3.3 L 2.9 L PTH Intact 68 H 03/01/19 05:10 Calcium Ionized Calcium Alkaline Phosphatase 147 H Creatine Kinase Albumin 3.2 L PTH Intact ASSESSMENT AND PLAN: Patient is an 88yo male with PMhx of HTN, with 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 he was found to have Right subdural hematoma # POD #2 s/p right craniotomy/hematoma evacuation. YANNICK drainage is minimal , possible removal today. due to acute on chronic subdural hematoma s/p fall in an outpatient setting, subdural hematoma with mass effect and mid line shift, continue neuro exam . Elevate HOB. Patient is doing well, with no difficulty. # Acute mild Rhabdo :improved s/p IVF #Mild hypercalcemia : due to primary hyperparathyroidism per report. # HTN: continue losartan DVT PX : [facility] ICU level of care
[2019-02-28] MEDS ORDERED: RANITIDINE HCL 150 MG TABLET (FP) PO ONE (20:06)
[2019-02-28] MEDS ORDERED: METOCLOPRAMIDE HCL 10 MG TABLET (FP) PO ONE (20:06)
--- NOTE | 2019-02-28 21:41 | PN ---
Progress Note (short form) - Note Progress Note: Mr. Danielle was sitting in a chair and watching TV this evening. He had no complaints. He had no focal motor deficits. I changed his wound dressing and removed the subgaleal YANNICK. He also walked down the cotter with PT. He can be downgraded to the floor. Please initiate rehab placement. Overall, I am satisfied with his progress. Will follow.
--- NOTE | 2019-03-01 00:33 | OP ---
DATE OF OPERATION: 02/26/2019 SURGEON: Dashawn Carnes MD PREOPERATIVE DIAGNOSIS: Large right subacute on chronic subdural hematoma. POSTOPERATIVE DIAGNOSIS: Large right subacute on chronic subdural hematoma. PROCEDURE: Right craniotomy and evacuation of large subacute on chronic subdural hematoma. DESCRIPTION OF THE PROCEDURE: The patient was taken to the operating room and placed under general endotracheal anesthesia. He was placed into the supine position. The right side of the head was shaved, prepped, and draped in the usual sterile fashion. A vertically oriented incision was made in the right parietal region. Tejinder clips were placed on the scalp for hemostasis. A self-retaining retractor was then placed. An M33 drill bit was used to make 2 bur holes. A dental tool was used to separate the dura from the overlying bone. A B1 craniotome was then used to elevate the bone flap. The underlying dura was tense. I opened it in a cruciate fashion with an 11 blade. A significant amount of chronic subdural hematoma fluid came out under pressure. I then proceeded to irrigate the intracranial cavity with approximately 3 L of sterile saline solution. The underlying brain appeared well decompressed at this point. I then proceeded to close the dura primarily with 4-0 neurolon sutures. I placed DuraGen along the remaining dural defects. I then replated the bone flap using titanium mini- plates and 4-mm screws with relatively good purchase. I left a 7 flat YANNICK drain in the subgaleal space. I closed the galea with 3-0 Vicryl sutures and haresh for the skin. There were no complications. The patient was hemodynamically stable throughout the procedure. All counts were correct. He was extubated and taken to the recovery room in stable condition. DASHAWN CARNES MD [id number] MTDD
[2019-03-01 05:56] LABS: BASO % 0.7 % (0-2.0); EOS % 6.5 % (0-4.5); HEMATOCRIT 35.8 % (35.4-49); HEMOGLOBIN 11.8 GM/dL (11.7-16.9); LYMPH % 21.9 % (8-40); MCH 28.7 pg (25.7-33.7); MCHC 32.9 g/dl (32.0-35.9); MEAN CELL VOLUME 87.1 fl (80-96); MEAN PLT VOLUME 9.2 fl (7.5-11.1); MONO % 11.5 % (3.8-10.2); NEUT % 59.4 % (42.8-82.8); PLATELET COUNT 171 K/MM3 (134-434); RBC 4.11 M/mm3 (4.00-5.60); WHITE BLOOD COUNT 9.1 K/mm3 (4.0-10.0)
[2019-03-01 06:19] LABS: ALBUMIN 3.2 g/dl (3.4-5.0); BILIRUBIN,TOTAL 0.7 mg/dL (0.2-1); CALCIUM 9.9 mg/dL (8.5-10.1); CREATININE 0.8 mg/dL (0.55-1.3); PHOSPHOROUS 2.2 mg/dL (2.5-4.9); POTASSIUM 3.7 mmol/L (3.5-5.1); TOT PROT 5.9 g/dl (6.4-8.2)
[2019-03-01] MEDS ORDERED: NAPH,MB-DB/K PH,MBDB POWDER PACKET PO ONE (06:21)
--- NOTE | 2019-03-01 07:27 | PN ---
Physical Exam: SUBJECTIVE: Patient seen and examined at bedside this morning. Overnight patient spontaneously voided after removal of davalos catheter. Afebrile overnight, no acute overnight events. Patient resting comfortably in exam bed, denies acute complaints. Patient denies subjective fevers, chills, shortness of breath, chest pain, palpitations, abdominal pain, nausea, vomiting. OBJECTIVE: Vital Signs Period Temp Pulse Resp BP Sys/Mckeon Pulse Ox Last 24 Hr 97.6 F-98.3 F 62-95 14-21 93-155/50-97 GENERAL: The patient is awake, alert, and oriented, in no acute distress. HEAD: Normocephalic. YANNICK drain with serosanguinous discharge. EYES: PERRL, extraocular movements intact without nystagmus, sclera anicteric, conjunctiva clear. ENT: Oropharynx clear without exudates, moist mucous membranes. NECK: Trachea midline, supple without lymphadenopathy LUNGS: Breath sounds equal, clear to auscultation bilaterally. No wheezes, no crackles, no accessory muscle use. HEART: Regular rate and rhythm, S1, S2 without murmur, rub or gallop. ABDOMEN: Soft, nontender, nondistended. Normoactive bowel sounds, no guarding, no rebound tenderness. EXTREMITIES: 2+ radial, dorsalis pedis pulses bilaterally, warm, well-perfused. No lower extremity edema. NEUROLOGICAL: Cranial nerves II through XII grossly intact, with exception of slight right sided ptosis, and nasiolabial flattening. Strength 4/5 left upper extremity. Right upper extremity 3/5 (chronic due to right shoulder injury). Strength 4/5 bilateral lower extremities. Sensation symmetrically intact bilateral upper and lower extremities. PSYCH: Normal mood, normal affect, appropriate upon my encounter. SKIN: Warm, dry. Laboratory Results - last 24 hr 02/27/19 03/01/19 03/01/19 05:40 05:10 05:10 WBC 9.1 RBC 4.11 Hgb 11.8 Hct 35.8 MCV 87.1 MCH 28.7 MCHC 32.9 RDW 14.0 Plt Count 171 MPV 9.2 Absolute Neuts (auto) 5.4 Neutrophils % 59.4 Lymphocytes % 21.9 Monocytes % 11.5 H Eosinophils % 6.5 H Basophils % 0.7 Nucleated RBC % 0 Sodium 141 Potassium 3.7 Chloride 110 H Carbon Dioxide 27 Anion Gap 5 L BUN 13 Creatinine 0.8 Est GFR (CKD-EPI)AfAm 92.44 Est GFR (CKD-EPI)NonAf 79.76 Random Glucose 108 H Calcium 9.9 Phosphorus 2.2 L Magnesium 2.0 Total Bilirubin 0.7 AST 29 ALT 29 Alkaline Phosphatase 147 H Total Protein 5.9 L Albumin 3.2 L PTH Intact 68 H Active Medications Generic Name Dose Route Start Last Admin Trade Name Freq PRN Reason Stop Dose Admin Acetaminophen 650 mg 02/27/19 17:17 02/28/19 15:21 Tylenol - PO 650 mg Q6H PRN Administration PAIN LEVEL 4 - 6 Cinacalcet 30 mg 02/27/19 10:00 02/28/19 09:31 Sensipar - PO 30 mg DAILY FARIHA Administration Sodium Chloride 1,000 mls @ 100 mls/hr 02/26/19 14:06 02/28/19 15:00 Normal Saline - IV 100 mls/hr ASDIR FARIHA Administration Losartan Potassium 50 mg 02/27/19 10:00 02/28/19 09:31 Cozaar - PO 50 mg DAILY FARIHA Administration Pantoprazole Sodium 40 mg 03/01/19 10:00 Protonix - PO DAILY F[facility] Tamsulosin HCl 0.4 mg 03/01/19 08:30 Flomax - PO DAILY@0830 F[facility] IMAGING: Initial CT head shows large right sided subdural hematoma, maximal width 2.8cm, with significant mass effect on right ventricle, midline shift and subfalcine herniation (10-11mm) Postoperative CT head imaging shows decrease of mass effect, midline shift, and subfalcine herniation. No acute ischemic changes. ASSESSMENT/PLAN: Patient is an 88 year old male with history of parathyroid neoplasm, hypertension admitted to ICU for subacute/ acute subdural hematoma. Neurologic -Acute on chronic subdural hematoma. -He is POD #3 s/p right craniotomy and evacuation of subdural hematoma. -Patient is awake, alert, fully oriented. -Moving all four extremities, walking with physical therapy. -Neurosurgery recommendations (Dr. Carnes) appreciated. Cardiac -History of hypertension -Losartan 50mg PO daily -Maintaining systolic BP below 150mmHg per neurosurgery recommendations. Pulmonary -Patient is currently not intubated. Saturating well on room air. -Maintain oxygen saturation greater than 90% Gastrointestinal -Diet advanced to soft diet -Speech, swallow evaluation appreciated. -Protonix 40mg IV daily Endocrine -History of parathyroid neoplasm -Hypercalcemia, Calcium today 9.6 -Sensipar 30mg PO daily -Will need to obtain records from [facility] -Endocrinology consult (Dr. Petit) appreciated. FEN -No IV fluids indicated -Follow CMP -Soft diet Prophylaxis -SCDs bilateral lower extremities. Holding chemical anticoagulation due to recent neurosurgical intervention. Disposition -Patient medically stable for transfer to Stroke floor. Visit type - Emergency Visit Emergency Visit: Yes ED Registration Date: 02/26/19 Care time: The patient presented to the Emergency Department on the above date and was hospitalized for further evaluation of their emergent condition. - New Patient This patient is new to me today: No - Critical Care Critical Care patient: Yes Total Critical Care Time (in minutes): 35 Critical Care Statement: The care of this patient involved high complexity decision making to prevent further life threatening deterioration of the patient 's condition and/or to evaluate & treat vital organ system(s) failure or risk of failure. - Discharge Referral Referred to [facility] No
[2019-03-01] MEDS: TAMSULOSIN HCL 0.4 MG CAP PO SCH (08:32)
[2019-03-01] MEDS ORDERED: PT OWN MED DRAWER 7, Y5N ONE (08:36)
[2019-03-01] MEDS ORDERED: POTASSIUM PHOSPHATE 20 MM in SODIUM CHLORIDE 250 ML IVPB ONE (09:00)
[2019-03-01] MEDS: PANTOPRAZOLE 40 MG TABLET (FP) PO SCH (09:13)
[2019-03-01] MEDS: LOSARTAN POTASSIUM 50 MG TABLET (FP) PO SCH (09:13)
[2019-03-01] MEDS: CINACALCET HCL 30 MG TAB (FP) PO SCH (09:14)
--- NOTE | 2019-03-01 11:48 | PN ---
Teaching Attending Note Name of Resident: Kyrie Huggins ATTENDING PHYSICIAN STATEMENT I saw and evaluated the patient. I reviewed the resident's note and discussed the case with the resident. I agree with the resident's findings and plan as documented. SUBJECTIVE: Patient seen and examined in the ICU. POD #2 right craniotomy/hematoma evacuation. Awake and alert. Denies LAUREN. No CP or SOB. OBJECTIVE: Intake & Output 02/26/19 02/27/19 02/28/19 03/01/19 23:59 23:59 23:59 23:59 Intake Total 1446 3720 3550 950 Output Total 2462 4225 3627 600 Balance -1016 -505 -77 350 Weight 161 lb 9 oz 161 lb 169 lb 9 oz 175 lb 3 oz Last Vital Signs Temp Pulse Resp BP Pulse Ox 98 F 95 H 20 171/96 H 98 03/01/19 04:00 03/01/19 08:00 03/01/19 08:00 03/01/19 08:00 02/26/19 21:00 Active Medications Acetaminophen (Tylenol -) 650 mg PO Q6H PRN PRN Reason: PAIN LEVEL 4 - 6 Last Admin: 02/28/19 15:21 Dose: 650 mg Cinacalcet (Sensipar -) 30 mg PO DAILY [facility] Last Admin: 03/01/19 09:14 Dose: 30 mg Sodium Chloride (Normal Saline -) 1,000 mls @ 100 mls/hr IV ASDIR [facility] Last Admin: 02/28/19 15:00 Dose: 100 mls/hr Potassium Phosphate 20 mm/ (Sodium Chloride) 256.6667 mls @ 62.5 mls/hr IVPB ONCE ONE Stop: 03/01/19 13:06 Last Admin: 03/01/19 09:13 Dose: 62.5 mls/hr Losartan Potassium (Cozaar -) 50 mg PO DAILY [facility] Last Admin: 03/01/19 09:13 Dose: 50 mg Pantoprazole Sodium (Protonix -) 40 mg PO DAILY [facility] Last Admin: 03/01/19 09:13 Dose: 40 mg Tamsulosin HCl (Flomax -) 0.4 mg PO DAILY@0830 [facility] Last Admin: 03/01/19 08:32 Dose: 0.4 mg Gen: NAD at rest Heart: RRR Lung: decreased breath sounds at the bases Abd: soft, nontender Ext: no edema Laboratory Results - last 24 hr 03/01/19 03/01/19 05:10 05:10 WBC 9.1 RBC 4.11 Hgb 11.8 Hct 35.8 MCV 87.1 MCH 28.7 MCHC 32.9 RDW 14.0 Plt Count 171 MPV 9.2 Absolute Neuts (auto) 5.4 Neutrophils % 59.4 Lymphocytes % 21.9 Monocytes % 11.5 H Eosinophils % 6.5 H Basophils % 0.7 Nucleated RBC % 0 Sodium 141 Potassium 3.7 Chloride 110 H Carbon Dioxide 27 Anion Gap 5 L BUN 13 Creatinine 0.8 Est GFR (CKD-EPI)AfAm 92.44 Est GFR (CKD-EPI)NonAf 79.76 Random Glucose 108 H Calcium 9.9 Phosphorus 2.2 L Magnesium 2.0 Total Bilirubin 0.7 AST 29 ALT 29 Alkaline Phosphatase 147 H Total Protein 5.9 L Albumin 3.2 L ASSESSMENT AND PLAN: Acute/Subacute Subdural Hematoma Hypercalcemia/Hyperparathyroidism Parathyroid neoplasm Rhabdomyolysis Dehydration HTN - pain control - monitor lytes - neuro checks - Incentive Spirometry - activity/DVT prophylaxis per surgery - Floor Dr Gupta
--- NOTE | 2019-03-01 13:14 | PN ---
Physical Exam: SUBJECTIVE: Patient seen and examined at bedside. Payton removed yesterday, urinating well, passing flatus, no BMs as yet, residual soreness in head, neck, and shoulders, no pain or acute complaints otherwise. Reports walking 100ft w/ walker under PT supervision yesterday. OBJECTIVE: Vital Signs Period Temp Pulse Resp BP Sys/Mckeon Pulse Ox Last 24 Hr 97.8 F-98.3 F 65-96 14-21 97-179/50-97 100 GENERAL: AOX3, talking slowly, NAD. HEAD: +Subgaleal YANNICK drain EYES: Pupils pinpoint equal, round and reactive to light, L eye lens opacity EARS, NOSE, THROAT: MMM. Poor dentition NECK: supple LUNGS: CTAB HEART: RRR, normal S1 and S2 ABDOMEN: Soft, NTND, normoactive bowel sounds, MUSCULOSKELETAL: Normal range of motion at all joints. No bony deformities or tenderness. LOWER EXTREMITIES: 2+ pulses, warm, well-perfused. No calf tenderness. No peripheral edema. NEUROLOGICAL: Slow/ low toned speech. gait not observed. Strength 4/5 LUE. RUE 3/5 (chronic due to right shoulder injury). Strength 4/5 LE b/l. Sensation symmetrically intact b/l upper and lower extremities. CN 2-12 intact Laboratory Results - last 24 hr 03/01/19 03/01/19 05:10 05:10 WBC 9.1 RBC 4.11 Hgb 11.8 Hct 35.8 MCV 87.1 MCH 28.7 MCHC 32.9 RDW 14.0 Plt Count 171 MPV 9.2 Absolute Neuts (auto) 5.4 Neutrophils % 59.4 Lymphocytes % 21.9 Monocytes % 11.5 H Eosinophils % 6.5 H Basophils % 0.7 Nucleated RBC % 0 Sodium 141 Potassium 3.7 Chloride 110 H Carbon Dioxide 27 Anion Gap 5 L BUN 13 Creatinine 0.8 Est GFR (CKD-EPI)AfAm 92.44 Est GFR (CKD-EPI)NonAf 79.76 Random Glucose 108 H Calcium 9.9 Phosphorus 2.2 L Magnesium 2.0 Total Bilirubin 0.7 AST 29 ALT 29 Alkaline Phosphatase 147 H Total Protein 5.9 L Albumin 3.2 L Active Medications Generic Name Dose Route Start Last Admin Trade Name Freq PRN Reason Stop Dose Admin Acetaminophen 650 mg 02/27/19 17:17 02/28/19 15:21 Tylenol - PO 650 mg Q6H PRN Administration PAIN LEVEL 4 - 6 Cinacalcet 30 mg 02/27/19 10:00 03/01/19 09:14 Sensipar - PO 30 mg DAILY FARIHA Administration Sodium Chloride 1,000 mls @ 100 mls/hr 02/26/19 14:06 02/28/19 15:00 Normal Saline - IV 100 mls/hr ASDIR FARIHA Administration Losartan Potassium 50 mg 02/27/19 10:00 03/01/19 09:13 Cozaar - PO 50 mg DAILY FARIHA Administration Pantoprazole Sodium 40 mg 03/01/19 10:00 03/01/19 09:13 Protonix - PO 40 mg DAILY FARIHA Administration Tamsulosin HCl 0.4 mg 03/01/19 08:30 03/01/19 08:32 Flomax - PO 0.4 mg DAILY@0830 FARIHA Administration ASSESSMENT/PLAN: 88 yo M with PMHx of HTN, BPH, recent diagnosis of Parathyroid neoplasm and hypercalcemia and recent fall (8 wks ago) p/w 2 day hx of generalized weakness and poor PO intake/Dehydration in setting of being trapped under exercise equipment. 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 approximately 2.8 cm. Significant mass effect on R lateral ventricle w/ midline shift, subfalcine herniation (adriana 10-11mm). Neuro exam intact, no focal neuro deficits, AOX3 and agreed to the surgery. Now POD2 Right Sided Craniotomy and Evacuation of Subacute on Chronic Subdural Hematoma Neuro exam unchanged. rpt CT headx2, reviewed above, shows mild improvement of midline shift. afebrile VSS Neurosurgery consulted, Dr Carnes neurochecks Q1h incentive spirometry Maintaining systolic BP <150mmHg per neurosurgery recs. fall precautions tolerating full liquid diet, advance as tolerated, aspiration precautions s/p post op cefazolin Generalized weakness, and poor PO intake/Dehydration in setting of mild hypercalcemia and being trapped under exercise equipment Hypercalcemia likely 2/2 parathyroid mass, pt worked up recently at [facility], records obtained and placed in chart. c/w NS @100/hr TSH nl, f/u Cortisol levels, 24 hr Urinary calcium, ionized calcium, urinary cortisol, Vit D levels (authorization required, cannot order) elevated PTH 68 CXR no acute pathology, +old rib trauma UA, ucx neg [id number], few PVCs, Q waves- III, AVF, II, normal axis, no MOMO/STD, QTc-401 , normal intervals trop negx2 Endocrine Consulted, Dr Petit PT eval Parathyroid neoplasm: Recently diagnosed at [facility], records obtained and placed in chart. At [facility] PTH was 121, vit D was nl 25, 1, 25 vit D was nl, kidney U/S nl. pt was eval by their endo Dr Fountain who did not think pt would be a good candidate for parathyroid surgery and would instead benefit from med management including cinicalcet w/ possible addition of antiresorptive (alendronate) at f/u within a few weeks -elevated PTH 68 Mild Rhabdo - resolved w/ IVF. HTN c/w home Losartan 50mg qd avoid thiazides in setting of hypercalcemia Maintaining systolic BP <150mmHg per neurosurgery recs. Chronic limited right shoulder - exacerbated by recent fall and now again by exercise equipment PT eval FEN NS @100/hr replete prn tolerating full liquid diet, advance as tolerated, aspiration precautions PPx: Hold SQH- CT head showed bleed above SCDs protonix daily to avoid Cushings ulcer Code: Full code Dispo: transfer to [facility] Surg Visit type - Emergency Visit Emergency Visit: No - New Patient This patient is new to me today: Yes Date on this admission: 03/01/19 - Critical Care Critical Care patient: Yes Total Critical Care Time (in minutes): 40 Critical Care Statement: The care of this patient involved high complexity decision making to prevent further life threatening deterioration of the patient 's condition and/or to evaluate & treat vital organ system(s) failure or risk of failure.
--- NOTE | 2019-03-01 14:00 | PN ---
Progress Note, [employer] - Note Progress Note: Selected Entries 03/01/19 03/01/19 03/01/19 00:00 04:00 10:00 Breakfast 100% Lunch Temperature 98.3 F 98 F 03/01/19 03/01/19 10:16 13:20 Breakfast 100% Lunch 100% Temperature Laboratory Tests 03/01/19 05:10 WBC 9.1 Pt reports that he easily fatiques feeding himself solid food due to overall weakness, however is tolerating diet upgrade well. Pt is verbal, recalls events. He is concerned that white board stating "reduce Confusion" will cause staff to make decisions for him. Reviewed this with nursing who will f/u. Excellent rehab candidate.
--- NOTE | 2019-03-01 15:14 | PN ---
Teaching Attending Note Name of Resident: Emerson Mcdonald ATTENDING PHYSICIAN STATEMENT I saw and evaluated the patient. I reviewed the resident's note and discussed the case with the resident. I agree with the resident's findings and plan as documented. SUBJECTIVE: Patient is comfortable with no ACUTE distress. No headache, no shortness of breath, no nausea or vomiting. OBJECTIVE: Vital Signs Temperature 98 F 03/01/19 04:00 Pulse Rate 96 H 03/01/19 12:00 Respiratory Rate 20 03/01/19 12:00 Blood Pressure 179/88 H 03/01/19 12:00 O2 Sat by Pulse Oximetry (%) 100 03/01/19 10:00 GENERAL: The patient is awake, alert, and fully oriented, in no acute distress. HEAD: s/p right craniotomy/hematoma evacuation. EYES: PERRL, extraocular movements intact, sclera anicteric, conjunctiva clear. ENT: Ears normal, oropharynx clear without exudates, moist mucous membranes. NECK: Trachea midline, full range of motion, supple. LUNGS: Breath sounds equal, clear to auscultation bilaterally, no wheezes, no crackles, no accessory muscle use. HEART: Regular rate and rhythm, S1, S2 without murmur, rub or gallop. ABDOMEN: Soft, NT,ND , normoactive bowel sounds, no guarding, no rebound, no hepatosplenomegaly, no masses. EXTREMITIES: 2+ pulses, warm, well-perfused, no edema. NEUROLOGICAL: Cranial nerves II through XII grossly intact. Normal speech. PSYCH: Normal mood, normal affect. SKIN: Warm, dry, normal turgor, no rashes or lesions noted Neuro: No facial droop, EOMI, round equal pupils, reactive to light. tongue at mid line. drainage is removed. CBCD WBC 9.1 K/mm3 (4.0-10.0) 03/01/19 05:10 RBC 4.11 M/mm3 (4.00-5.60) 03/01/19 05:10 Hgb 11.8 GM/dL (11.7-16.9) 03/01/19 05:10 Hct 35.8 % (35.4-49) 03/01/19 05:10 MCV 87.1 fl (80-96) 03/01/19 05:10 MCHC 32.9 g/dl (32.0-35.9) 03/01/19 05:10 RDW 14.0 % (11.9-15.9) 03/01/19 05:10 Plt Count 171 K/MM3 (134-434) 03/01/19 05:10 MPV 9.2 fl (7.5-11.1) 03/01/19 05:10 CMP Sodium 141 mmol/L (136-145) 03/01/19 05:10 Potassium 3.7 mmol/L (3.5-5.1) 03/01/19 05:10 Chloride 110 mmol/L (98-107) H 03/01/19 05:10 Carbon Dioxide 27 mmol/L (21-32) 03/01/19 05:10 Anion Gap 5 MMOL/L (8-16) L 03/01/19 05:10 BUN 13 mg/dL (7-18) 03/01/19 05:10 Creatinine 0.8 mg/dL (0.55-1.3) 03/01/19 05:10 Random Glucose 108 mg/dL (74-106) H 03/01/19 05:10 Calcium 9.9 mg/dL (8.5-10.1) 03/01/19 05:10 Total Bilirubin 0.7 mg/dL (0.2-1) 03/01/19 05:10 AST 29 U/L (15-37) 03/01/19 05:10 ALT 29 U/L (13-61) 03/01/19 05:10 Alkaline Phosphatase 147 U/L (45-117) H 03/01/19 05:10 Total Protein 5.9 g/dl (6.4-8.2) L 03/01/19 05:10 Albumin 3.2 g/dl (3.4-5.0) L 03/01/19 05:10 CARDIAC ENZYMES Creatine Kinase 264 U/L (26-308) 02/26/19 05:30 Troponin I 0.02 ng/ml (0.00-0.05) 02/26/19 05:30 Current Medications Generic Name Dose Route Start Last Admin Trade Name Freq PRN Reason Stop Dose Admin Acetaminophen 650 mg 02/27/19 17:17 02/28/19 15:21 Tylenol - PO 650 mg Q6H PRN Administration PAIN LEVEL 4 - 6 Cinacalcet 30 mg 02/27/19 10:00 03/01/19 09:14 Sensipar - PO 30 mg DAILY FARIHA Administration Sodium Chloride 1,000 mls @ 100 mls/hr 02/26/19 14:06 02/28/19 15:00 Normal Saline - IV 100 mls/hr ASDIR FARIHA Administration Losartan Potassium 50 mg 02/27/19 10:00 03/01/19 09:13 Cozaar - PO 50 mg DAILY FARIHA Administration Pantoprazole Sodium 40 mg 03/01/19 10:00 03/01/19 09:13 Protonix - PO 40 mg DAILY FARIHA Administration Tamsulosin HCl 0.4 mg 03/01/19 08:30 03/01/19 08:32 Flomax - PO 0.4 mg DAILY@0830 FARIHA Administration Home Medications Medication Instructions Recorded Cinacalcet HCl [Sensipar -] 30 mg PO DAILY 02/26/19 Losartan Potassium 50 mg PO DAILY 02/26/19 ASSESSMENT AND PLAN: Patient is an 88yo male with PMhx of HTN, with 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 he was found to have Right subdural hematoma # POD #3 s/p right craniotomy/hematoma evacuation. s/p removal of YANNICK drainage due to acute on chronic subdural hematoma s/p fall in an outpatient setting ; subdural hematoma with mass effect and mid line shift . continue neuro exam . Elevate HOB. Tx out of ICU # Acute mild Rhabdo :improved s/p IVF. # hypercalcemia : with elevated PTH , due to primary hyperparathyroidism. # HTN: continue losartan DVT PX : Scds ICU level of care
--- NOTE | 2019-03-01 16:39 | PN ---
Progress Note (short form) - Note Progress Note: The patient had no complaints. He has no focal deficits. His wound dressing is c/d/i. He walked approximately 100 ft with PT. He will be downgraded to the floor this evening. He is cleared for rehab from my standpoint. Will follow.
[2019-03-01] MEDS: SODIUM CHLORIDE 1,000 ML IV SCH (18:11)
[2019-03-02] MEDS: SODIUM CHLORIDE 1,000 ML IV SCH ×3 (03:30→18:24)
[2019-03-02 07:53] LABS: HEMATOCRIT 33.6 % (35.4-49); HEMOGLOBIN 11.3 GM/dL (11.7-16.9); MCH 29.2 pg (25.7-33.7); MCHC 33.6 g/dl (32.0-35.9); MEAN CELL VOLUME 86.9 fl (80-96); MEAN PLT VOLUME 9.5 fl (7.5-11.1); RBC 3.86 M/mm3 (4.00-5.60); RDW 13.9 % (11.9-15.9); WHITE BLOOD COUNT 7.5 K/mm3 (4.0-10.0)
[2019-03-02 07:54] LABS: ALBUMIN 3.2 g/dl (3.4-5.0); BILIRUBIN,TOTAL 0.7 mg/dL (0.2-1); CALCIUM 9.8 mg/dL (8.5-10.1); CREATININE 0.8 mg/dL (0.55-1.3); MAGNESIUM 2.2 mg/dL (1.8-2.4); PHOSPHOROUS 2.8 mg/dL (2.5-4.9); TOT PROT 5.9 g/dl (6.4-8.2)
[2019-03-02] MEDS: TAMSULOSIN HCL 0.4 MG CAP PO SCH (10:38)
[2019-03-02] MEDS: PANTOPRAZOLE 40 MG TABLET (FP) PO SCH (10:38)
[2019-03-02] MEDS: LOSARTAN POTASSIUM 50 MG TABLET (FP) PO SCH (10:38)
[2019-03-02] MEDS ORDERED: PT OWN MED DRAWER 7, Y5N ONE ×2 (10:40→16:55)
[2019-03-02] MEDS: CINACALCET HCL 30 MG TAB (FP) PO SCH (10:40)
[2019-03-02 12:07] LABS: EPI CELLS 0.1 /HPF (0-5/HPF); HYALINE CASTS 0 /lpf (0-8); PH,URINE 7.5 (5.0-8.0); URINE APPEARANCE CLEAR; URINE BACTERIA 2.9 /hpf (NEGATIVE); URINE BILIRUBIN NEGATIVE (NEGATIVE); URINE COLOR YELLOW; URINE GLUCOSE (UA) NEGATIVE (NEGATIVE); URINE KETONE NEGATIVE (NEGATIVE); URINE LEUK ESTERASE NEGATIVE (NEGATIVE); URINE NITRITE NEGATIVE (NEGATIVE); URINE PROTEIN NEGATIVE (NEGATIVE); URINE RBC 5 /hpf (0-4); URINE UROBILINOGEN 0.2 mg/dL (0.2-1.0); URINE WBC 0 /hpf (0-5)
[2019-03-02] MEDS ORDERED: BENZOCAINE/MENTH/CETYLPYRD CL 1 EACH LOZENGE MM PRN (13:05)
[2019-03-02 14:03] LABS: PLATELET COUNT 210 K/MM3 (134-434)
--- NOTE | 2019-03-02 16:06 | PN ---
Progress Note (short form) - Note Progress Note: Patient is comfortable with no acute distress. Vital Signs Temperature 97.9 F 03/02/19 14:00 Pulse Rate 85 03/02/19 14:00 Respiratory Rate 20 03/02/19 14:00 Blood Pressure 148/81 03/02/19 14:00 O2 Sat by Pulse Oximetry (%) 97 03/01/19 21:00 GENERAL: The patient is awake, alert, and fully oriented, in no acute distress. HEAD: s/p right craniotomy/hematoma evacuation. EYES: PERRL, extraocular movements intact, sclera anicteric, conjunctiva clear. ENT: Ears normal, oropharynx clear without exudates, moist mucous membranes. NECK: Trachea midline, full range of motion, supple. LUNGS: Breath sounds equal, clear to auscultation bilaterally, no wheezes, no crackles, no accessory muscle use. HEART: Regular rate and rhythm, S1, S2 without murmur, rub or gallop. ABDOMEN: Soft, NT,ND , normoactive bowel sounds, no guarding, no rebound, no hepatosplenomegaly, no masses. EXTREMITIES: 2+ pulses, warm, well-perfused, no edema. NEUROLOGICAL: Cranial nerves II through XII grossly intact. Normal speech. PSYCH: Normal mood, normal affect. SKIN: Warm, dry, normal turgor, no rashes or lesions noted Neuro: No facial droop, EOMI, round equal pupils, reactive to light. tongue at mid line. drainage is removed. head is wrapped with bandage. CBCD WBC 7.5 K/mm3 (4.0-10.0) 03/02/19 06:55 RBC 3.86 M/mm3 (4.00-5.60) L 03/02/19 06:55 Hgb 11.3 GM/dL (11.7-16.9) L 03/02/19 06:55 Hct 33.6 % (35.4-49) L 03/02/19 06:55 MCV 86.9 fl (80-96) 03/02/19 06:55 MCHC 33.6 g/dl (32.0-35.9) 03/02/19 06:55 RDW 13.9 % (11.9-15.9) 03/02/19 06:55 Plt Count 210 K/MM3 (134-434) D 03/02/19 06:55 MPV 9.5 fl (7.5-11.1) 03/02/19 06:55 CMP Sodium 140 mmol/L (136-145) 03/02/19 06:55 Potassium 4.0 mmol/L (3.5-5.1) 03/02/19 06:55 Chloride 109 mmol/L (98-107) H 03/02/19 06:55 Carbon Dioxide 26 mmol/L (21-32) 03/02/19 06:55 Anion Gap 5 MMOL/L (8-16) L 03/02/19 06:55 BUN 11.0 mg/dL (7-18) 03/02/19 06:55 Creatinine 0.8 mg/dL (0.55-1.3) 03/02/19 06:55 Random Glucose 114 mg/dL (74-106) H 03/02/19 06:55 Calcium 9.8 mg/dL (8.5-10.1) 03/02/19 06:55 Total Bilirubin 0.7 mg/dL (0.2-1) 03/02/19 06:55 AST 30 U/L (15-37) 03/02/19 06:55 ALT 41 U/L (13-61) 03/02/19 06:55 Alkaline Phosphatase 156 U/L (45-117) H 03/02/19 06:55 Total Protein 5.9 g/dl (6.4-8.2) L 03/02/19 06:55 Albumin 3.2 g/dl (3.4-5.0) L 03/02/19 06:55 CARDIAC ENZYMES Creatine Kinase 264 U/L (26-308) 02/26/19 05:30 Troponin I 0.02 ng/ml (0.00-0.05) 02/26/19 05:30 Current Medications Generic Name Dose Route Start Last Admin Trade Name Freq PRN Reason Stop Dose Admin Acetaminophen 650 mg 03/01/19 18:21 Tylenol - PO Q6H PRN PAIN LEVEL 4 - 6 Benzocaine/Menthol 1 each 03/02/19 13:05 Cepacol Lozenge - MM Q4H PRN SORE THROAT Cinacalcet 30 mg 03/02/19 10:00 03/02/19 10:40 Sensipar - PO 30 mg DAILY FARIHA Administration Sodium Chloride 1,000 mls @ 100 mls/hr 03/01/19 18:21 03/02/19 13:29 Normal Saline - IV 100 mls/hr ASDIR FARIHA Administration Losartan Potassium 50 mg 03/02/19 10:00 03/02/19 10:38 Cozaar - PO 50 mg DAILY FARIHA Administration Multi-Ingredient Ointment 1 applic 03/02/19 13:15 Zinc Oxide TP BID FARIHA Pantoprazole Sodium 40 mg 03/01/19 10:00 03/02/19 10:38 Protonix - PO 40 mg DAILY FARIHA Administration Tamsulosin HCl 0.4 mg 03/01/19 08:30 03/02/19 10:38 Flomax - PO 0.4 mg DAILY@0830 FARIHA Administration Home Medications Medication Instructions Recorded Cinacalcet HCl [Sensipar -] 30 mg PO DAILY 02/26/19 Losartan Potassium 50 mg PO DAILY 02/26/19 Assessment and plan: Patient is an 88yo male with PMhx of HTN, with 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 he was found to have Right subdural hematoma # POD #4 s/p right craniotomy/hematoma evacuation. s/p removal of YANNICK drainage due to acute on chronic subdural hematoma s/p fall in an outpatient setting ; subdural hematoma with mass effect and mid line shift . continue neuro exam . Elevate HOB. Tx out of ICU # Acute mild Rhabdo :improved s/p IVF. # hypercalcemia : with elevated PTH , due to primary hyperparathyroidism. # HTN: continue losartan # Throat irritation: on Cepacol DVT PX : Scds dc planning to rehab Visit type - Emergency Visit Emergency Visit: Yes ED Registration Date: 02/26/19 Care time: The patient presented to the Emergency Department on the above date and was hospitalized for further evaluation of their emergent condition. - New Patient This patient is new to me today: No - Critical Care Critical Care patient: No - Discharge Referral Referred to [facility] Med P.C.: No
[2019-03-02] MEDS: ZINC OXIDE 20% TOPICAL OINTMENT 30 GM TUBE TP SCH (17:26)
[2019-03-03] MEDS: ZINC OXIDE 20% TOPICAL OINTMENT 30 GM TUBE TP SCH ×3 (00:27→22:15)
[2019-03-03] MEDS: SODIUM CHLORIDE 1,000 ML IV SCH ×2 (00:27→09:46)
--- NOTE | 2019-03-03 06:46 | PN ---
Physical Exam: SUBJECTIVE: Patient seen and examined at bed side , no acute events over night , denies any fever, chills, N.V.D.C. OBJECTIVE: Vital Signs Period Temp Pulse Resp BP Sys/Mckeon Pulse Ox Last 24 Hr 97.7 F-98.1 F 75-98 18-20 116-148/71-89 98 GENERAL: AOX3, talking slowly, NAD. HEAD: wound cover dry and clean EYES: Pupils pinpoint equal, round and reactive to light, L eye lens opacity EARS, NOSE, THROAT: MMM. Poor dentition NECK: supple LUNGS: CTAB HEART: RRR, normal S1 and S2 ABDOMEN: Soft, NTND, normoactive bowel sounds, LOWER EXTREMITIES: 2+ pulses, warm, well-perfused. No calf tenderness. No peripheral edema. NEUROLOGICAL: Slow/ low toned speech. gait not observed. Strength 4/5 LUE. RUE 3/5 (chronic due to right shoulder injury). Strength 4/5 LE b/l. Sensation symmetrically intact b/l upper and lower extremities. CN 2-12 intact Laboratory Results - last 24 hr 03/02/19 03/02/19 03/02/19 06:55 06:55 11:15 WBC 7.5 RBC 3.86 L Hgb 11.3 L Hct 33.6 L MCV 86.9 MCH 29.2 MCHC 33.6 RDW 13.9 Plt Count 210 D MPV 9.5 Sodium 140 Potassium 4.0 Chloride 109 H Carbon Dioxide 26 Anion Gap 5 L BUN 11.0 Creatinine 0.8 Est GFR (CKD-EPI)AfAm 92.44 Est GFR (CKD-EPI)NonAf 79.76 Random Glucose 114 H Calcium 9.8 Phosphorus 2.8 Magnesium 2.2 Total Bilirubin 0.7 AST 30 ALT 41 Alkaline Phosphatase 156 H Total Protein 5.9 L Albumin 3.2 L Urine Color Yellow Urine Appearance Clear Urine pH 7.5 D Ur Specific [place] 1.006 L Urine Protein Negative Urine Glucose (UA) Negative Urine Ketones Negative Urine Blood Trace Urine Nitrite Negative Urine Bilirubin Negative Urine Urobilinogen 0.2 Ur Leukocyte Esterase Negative Urine WBC (Auto) 0 Urine RBC (Auto) 5 Urine Casts (Auto) 0 U Epithel Cells (Auto) 0.1 Urine Bacteria (Auto) 2.9 Active Medications Generic Name Dose Route Start Last Admin Trade Name Freq PRN Reason Stop Dose Admin Acetaminophen 650 mg 03/01/19 18:21 Tylenol - PO Q6H PRN PAIN LEVEL 4 - 6 Benzocaine/Menthol 1 each 03/02/19 13:05 03/02/19 17:26 Cepacol Lozenge - MM 1 each Q4H PRN Administration SORE THROAT Cinacalcet 30 mg 03/02/19 10:00 03/02/19 10:40 Sensipar - PO 30 mg DAILY FARIHA Administration Sodium Chloride 1,000 mls @ 100 mls/hr 03/01/19 18:21 03/03/19 00:27 Normal Saline - IV 100 mls/hr ASDIR FARIHA Administration Losartan Potassium 50 mg 03/02/19 10:00 03/02/19 10:38 Cozaar - PO 50 mg DAILY FARIHA Administration Multi-Ingredient Ointment 1 applic 03/02/19 13:15 03/03/19 00:27 Zinc Oxide TP 1 applic BID FARIHA Administration Pantoprazole Sodium 40 mg 03/01/19 10:00 03/02/19 10:38 Protonix - PO 40 mg DAILY FARIHA Administration Tamsulosin HCl 0.4 mg 03/01/19 08:30 03/02/19 10:38 Flomax - PO 0.4 mg DAILY@0830 FARIHA Administration ASSESSMENT/PLAN: 88 yo M with PMHx of HTN, BPH, recent diagnosis of Parathyroid neoplasm and hypercalcemia and recent fall (8 wks ago) p/w 2 day hx of generalized weakness and poor PO intake/Dehydration in setting of being trapped under exercise equipment. Now found w/ Acute on chronic large R subdural hematoma requiring ICU and surgery #POD #4 s/p right craniotomy/hematoma evacuation. * s/p removal of YANNICK drainage due to acute on chronic subdural hematoma * s/p fall in an outpatient setting ; subdural hematoma with mass effect and mid line shift . continue neuro exam . * Elevate HOB. #Generalized weakness, and poor PO intake/Dehydration in setting of mild hypercalcemia and being trapped under exercise equipment * Hypercalcemia likely 2/2 parathyroid mass, pt worked up recently at [facility], not surgical candiate, recommendation to treat emdically can follow as out pt * ca normalized monitor off fluids * TSH nl, PTH 68 * PT eval #Parathyroid neoplasm: Recently diagnosed at [place], records obtained and placed in chart. At [facility] PTH was 121, vit D was nl 25, 1, 25 vit D was nl, kidney U/S nl. pt was eval by their endo Dr Fountain who did not think pt would be a good candidate for parathyroid surgery and would instead benefit from med management including cinicalcet w/ possible addition of antiresorptive (alendronate) at f/u within a few weeks -elevated PTH 68 Mild Rhabdo * resolved w/ IVF. # BPH on FLomax #HTN * c/w home Losartan 50mg qd * avoid thiazides in setting of hypercalcemia * Maintaining systolic BP <150mmHg per neurosurgery recs. #Chronic limited right shoulder - exacerbated by recent fall and now again by exercise equipment * PT eval FEN * off fluids * monitor lytes replete prn * soft diet #PPx: * scds , no chemichal proph as at risk of IC bleeding * protonix daily to avoid Cushings ulcer #Code: * Full code #Dispo: * Med Surg * dc to rehab when bed available Visit type - Emergency Visit Emergency Visit: Yes ED Registration Date: 02/26/19 Care time: The patient presented to the Emergency Department on the above date and was hospitalized for further evaluation of their emergent condition. - New Patient This patient is new to me today: Yes Date on this admission: 03/03/19 - Critical Care Critical Care patient: No
[2019-03-03] MEDS: TAMSULOSIN HCL 0.4 MG CAP PO SCH (08:46)
[2019-03-03] MEDS ORDERED: PT OWN MED DRAWER 7, Y5N ONE (09:12)
[2019-03-03] MEDS: LOSARTAN POTASSIUM 50 MG TABLET (FP) PO SCH (09:45)
[2019-03-03] MEDS: CINACALCET HCL 30 MG TAB (FP) PO SCH (09:46)
[2019-03-03] MEDS: PANTOPRAZOLE 40 MG TABLET (FP) PO SCH (09:46)
[2019-03-03] MEDS: ACETAMINOPHEN 325 MG TABLET (FP) PO PRN (13:22)
--- NOTE | 2019-03-03 15:56 | PN ---
Teaching Attending Note Name of Resident: Bandar García ATTENDING PHYSICIAN STATEMENT I saw and evaluated the patient. I reviewed the resident's note and discussed the case with the resident. I agree with the resident's findings and plan as documented. SUBJECTIVE: Patient is doing better with no acute distress, no shortness of breath. OBJECTIVE: Vital Signs Temperature 97.6 F 03/03/19 09:51 Pulse Rate 100 H 03/03/19 09:51 Respiratory Rate 20 03/03/19 09:51 Blood Pressure 136/64 03/03/19 09:51 O2 Sat by Pulse Oximetry (%) 98 03/02/19 08:45 GENERAL: AA0x3 , comfortable . HEAD: s/p right craniotomy/hematoma evacuation. covered with the bandage EYES: PERRL, extraocular movements intact, sclera anicteric, conjunctiva clear. ENT: Ears normal, oropharynx clear without exudates, moist mucous membranes. NECK: Trachea midline, full range of motion, supple. LUNGS: Breath sounds equal, clear to auscultation bilaterally, no wheezes, no crackles, no accessory muscle use. HEART: Regular rate and rhythm, S1, S2 without murmur, rub or gallop. ABDOMEN: Soft, NT,ND , normoactive bowel sounds, no guarding, no rebound, no hepatosplenomegaly, no masses. EXTREMITIES: 2+ pulses, warm, well-perfused, no edema. NEUROLOGICAL: Cranial nerves II through XII grossly intact. Normal speech. PSYCH: Normal mood, normal affect. SKIN: Warm, dry, normal turgor, no rashes or lesions noted Neuro: No facial droop, EOMI, round equal pupils, reactive to light. tongue at mid line. drainage is removed. head is wrapped with bandage. CBCD WBC 7.5 K/mm3 (4.0-10.0) 03/02/19 06:55 RBC 3.86 M/mm3 (4.00-5.60) L 03/02/19 06:55 Hgb 11.3 GM/dL (11.7-16.9) L 03/02/19 06:55 Hct 33.6 % (35.4-49) L 03/02/19 06:55 MCV 86.9 fl (80-96) 03/02/19 06:55 MCHC 33.6 g/dl (32.0-35.9) 03/02/19 06:55 RDW 13.9 % (11.9-15.9) 03/02/19 06:55 Plt Count 210 K/MM3 (134-434) D 03/02/19 06:55 MPV 9.5 fl (7.5-11.1) 03/02/19 06:55 CMP Sodium 140 mmol/L (136-145) 03/02/19 06:55 Potassium 4.0 mmol/L (3.5-5.1) 03/02/19 06:55 Chloride 109 mmol/L (98-107) H 03/02/19 06:55 Carbon Dioxide 26 mmol/L (21-32) 03/02/19 06:55 Anion Gap 5 MMOL/L (8-16) L 03/02/19 06:55 BUN 11.0 mg/dL (7-18) 03/02/19 06:55 Creatinine 0.8 mg/dL (0.55-1.3) 03/02/19 06:55 Random Glucose 114 mg/dL (74-106) H 03/02/19 06:55 Calcium 9.8 mg/dL (8.5-10.1) 03/02/19 06:55 Total Bilirubin 0.7 mg/dL (0.2-1) 03/02/19 06:55 AST 30 U/L (15-37) 03/02/19 06:55 ALT 41 U/L (13-61) 03/02/19 06:55 Alkaline Phosphatase 156 U/L (45-117) H 03/02/19 06:55 Total Protein 5.9 g/dl (6.4-8.2) L 03/02/19 06:55 Albumin 3.2 g/dl (3.4-5.0) L 03/02/19 06:55 CARDIAC ENZYMES Creatine Kinase 264 U/L (26-308) 02/26/19 05:30 Troponin I 0.02 ng/ml (0.00-0.05) 02/26/19 05:30 Home Medications Medication Instructions Recorded Cinacalcet HCl [Sensipar -] 30 mg PO DAILY 02/26/19 Losartan Potassium 50 mg PO DAILY 02/26/19 Current Medications Generic Name Dose Route Start Last Admin Trade Name Freq PRN Reason Stop Dose Admin Acetaminophen 650 mg 03/01/19 18:21 03/03/19 13:22 Tylenol - PO 650 mg Q6H PRN Administration PAIN LEVEL 4 - 6 Benzocaine/Menthol 1 each 03/02/19 13:05 03/02/19 17:26 Cepacol Lozenge - MM 1 each Q4H PRN Administration SORE THROAT Cinacalcet 30 mg 03/02/19 10:00 03/03/19 09:46 Sensipar - PO 30 mg DAILY FARIHA Administration Losartan Potassium 50 mg 03/02/19 10:00 03/03/19 09:45 Cozaar - PO 50 mg DAILY FARIHA Administration Multi-Ingredient Ointment 1 applic 03/02/19 13:15 03/03/19 09:47 Zinc Oxide TP 1 applic BID FARIHA Administration Pantoprazole Sodium 40 mg 03/01/19 10:00 03/03/19 09:46 Protonix - PO 40 mg DAILY FARIHA Administration Tamsulosin HCl 0.4 mg 03/01/19 08:30 03/03/19 08:46 Flomax - PO 0.4 mg DAILY@0830 FARIHA Administration Microbiology 03/02/19 11:15 Urine - Urine Clean Catch Urine Culture - Preliminary Group D Strep Or Entero Coccus 02/26/19 03:29 Urine - Urine Clean Catch Urine Culture - Final ASSESSMENT AND PLAN: Patient is an 88yo male with PMhx of HTN, with 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 he was found to have Right subdural hematoma # POD #6 s/p right craniotomy/hematoma evacuation. s/p removal of YANNICK drainage due to acute on chronic subdural hematoma s/p fall in an outpatient setting ; subdural hematoma with mass effect and mid line shift . continue neuro exam . Elevate HOB. # Acute mild Rhabdo :improved s/p IVF. # hypercalcemia : with elevated PTH , due to primary hyperparathyroidism. # HTN: continue losartan # Throat irritation: on Cepacol DVT PX : Scds dc planning to rehab
[2019-03-04] MEDS ORDERED: PT OWN MED DRAWER 7, Y5N ONE (09:24)
[2019-03-04] MEDS: CINACALCET HCL 30 MG TAB (FP) PO SCH (09:28)
[2019-03-04] MEDS: PANTOPRAZOLE 40 MG TABLET (FP) PO SCH (09:29)
[2019-03-04] MEDS: LOSARTAN POTASSIUM 50 MG TABLET (FP) PO SCH (09:29)
[2019-03-04] MEDS: TAMSULOSIN HCL 0.4 MG CAP PO SCH (09:29)
--- NOTE | 2019-03-04 10:05 | PN ---
Progress Note (short form) - Note Progress Note: The patient was resting comfortably in bed. He denied any headaches. His wound dressing was c/d/i. His incision is healing well. He will be discharged to rehab this week. He can follow up with me in my office one week after discharge for a wound check and suture removal. Will follow.
[2019-03-04 10:24] LABS: EPI CELLS 1.1 /HPF (0-5/HPF); HYALINE CASTS 6 /lpf (0-8); URINE APPEARANCE CLOUDY; URINE BACTERIA 3629.9 /hpf (NEGATIVE); URINE BILIRUBIN NEGATIVE (NEGATIVE); URINE COLOR YELLOW; URINE GLUCOSE (UA) NEGATIVE (NEGATIVE); URINE KETONE NEGATIVE (NEGATIVE); URINE LEUK ESTERASE NEGATIVE (NEGATIVE); URINE NITRITE NEGATIVE (NEGATIVE); URINE PROTEIN NEGATIVE (NEGATIVE); URINE RBC 360 /hpf (0-4); URINE UROBILINOGEN 0.2 mg/dL (0.2-1.0); URINE WBC 1 /hpf (0-5)
--- NOTE | 2019-03-04 12:44 | PN ---
Progress Note, [facility] [employer] - Note Progress Note: Selected Entries 03/02/19 03/02/19 03/03/19 09:23 14:00 06:24 Breakfast 100% Lunch 50% Supper Temperature 97.7 F 03/03/19 03/03/19 03/03/19 09:51 10:00 16:31 Breakfast Lunch 75% Supper Temperature 97.6 F 97.6 F 03/03/19 03/03/19 03/04/19 18:00 18:05 06:00 Breakfast Lunch Supper 75% Temperature 98.1 F 98.2 F 03/04/19 09:00 Breakfast Lunch Supper Temperature 98.4 F Pt now on [id number]. Tolerating diet.
--- NOTE | 2019-03-04 12:50 | PN ---
Progress Note (short form) - Note Progress Note: Resting in NAD. No acute events overnight. No CP or SOB. OBJECTIVE: Intake & Output 03/01/19 03/02/19 03/03/19 03/04/19 23:59 23:59 23:59 23:59 Intake Total 5 4125 1030 Output Total 850 1700 1900 775 Balance 1175 2425 -870 -775 Weight 175 lb 3 oz Last Vital Signs Temp Pulse Resp BP Pulse Ox 98.4 F 72 18 150/87 97 03/04/19 09:00 03/04/19 06:00 03/04/19 09:00 03/04/19 09:00 03/03/19 21:00 Active Medications Acetaminophen (Tylenol -) 650 mg PO Q6H PRN PRN Reason: PAIN LEVEL 4 - 6 Last Admin: 03/03/19 13:22 Dose: 650 mg Benzocaine/Menthol (Cepacol Lozenge -) 1 each MM Q4H PRN PRN Reason: SORE THROAT Last Admin: 03/02/19 17:26 Dose: 1 each Cinacalcet (Sensipar -) 30 mg PO DAILY [facility] Last Admin: 03/04/19 09:28 Dose: 30 mg Losartan Potassium (Cozaar -) 50 mg PO DAILY [facility] Last Admin: 03/04/19 09:29 Dose: 50 mg Multi-Ingredient Ointment (Zinc Oxide) 1 applic TP BID [facility] Last Admin: 03/03/19 22:15 Dose: 1 applic Pantoprazole Sodium (Protonix -) 40 mg PO DAILY [facility] Last Admin: 03/04/19 09:29 Dose: 40 mg Tamsulosin HCl (Flomax -) 0.4 mg PO DAILY@0830 [facility] Last Admin: 03/04/19 09:29 Dose: 0.4 mg Gen: NAD at rest Heart: RRR Lung: decreased breath sounds at the bases Abd: soft, nontender Ext: no edema Laboratory Results - last 24 hr 03/04/19 09:30 Urine Color Yellow Urine Appearance Cloudy Urine pH 8.0 Ur Specific [place] 1.010 Urine Protein Negative Urine Glucose (UA) Negative Urine Ketones Negative Urine Blood 3+ H Urine Nitrite Negative Urine Bilirubin Negative Urine Urobilinogen 0.2 Ur Leukocyte Esterase Negative Urine WBC (Auto) 1 Urine RBC (Auto) 360 Urine Casts (Auto) 6 U Epithel Cells (Auto) 1.1 Urine Bacteria (Auto) 3629.9 ASSESSMENT AND PLAN: Acute/Subacute Subdural Hematoma Hypercalcemia/Hyperparathyroidism Parathyroid neoplasm Rhabdomyolysis Dehydration HTN Pain control Neuro checks Incentive Spirometry Activity/DVT prophylaxis per surgery Dr Gupta
[2019-03-04] MEDS ORDERED: ONDANSETRON 4 MG/2 ML VIAL IVPUSH ONE (13:59)
[2019-03-04] MEDS: ACETAMINOPHEN 325 MG TABLET (FP) PO PRN ×2 (14:56→23:08)
[2019-03-04] MEDS: ZINC OXIDE 20% TOPICAL OINTMENT 30 GM TUBE TP SCH ×2 (15:04→23:09)
--- NOTE | 2019-03-04 15:23 | PN ---
Physical Exam: SUBJECTIVE: Patient seen and examined at bedside. Complains of blood in urine, burning sensation, s/p recent catheterization. C/o ongoing fatigue. OBJECTIVE: Vital Signs Period Temp Pulse Resp BP Sys/Mckeon Pulse Ox Last 24 Hr 97.6 F-98.4 F 72-96 18-20 117-150/59-87 97 GENERAL: AOX3, talking slowly, NAD. HEAD: +Subgaleal YANNICK drain EYES: Pupils pinpoint equal, round and reactive to light, L eye lens opacity EARS, NOSE, THROAT: MMM. Poor dentition NECK: supple LUNGS: CTAB HEART: RRR, normal S1 and S2 ABDOMEN: Soft, NTND, normoactive bowel sounds, MUSCULOSKELETAL: Normal range of motion at all joints. No bony deformities or tenderness. LOWER EXTREMITIES: 2+ pulses, warm, well-perfused. No calf tenderness. No peripheral edema. NEUROLOGICAL: Slow/ low toned speech. gait not observed. Strength 4/5 LUE. RUE 3/5 (chronic due to right shoulder injury). Strength 4/5 LE b/l. Sensation symmetrically intact b/l upper and lower extremities. CN 2-12 intact Laboratory Results - last 24 hr 03/04/19 09:30 Urine Color Yellow Urine Appearance Cloudy Urine pH 8.0 Ur Specific [place] 1.010 Urine Protein Negative Urine Glucose (UA) Negative Urine Ketones Negative Urine Blood 3+ H Urine Nitrite Negative Urine Bilirubin Negative Urine Urobilinogen 0.2 Ur Leukocyte Esterase Negative Urine WBC (Auto) 1 Urine RBC (Auto) 360 Urine Casts (Auto) 6 U Epithel Cells (Auto) 1.1 Urine Bacteria (Auto) 3629.9 Active Medications Generic Name Dose Route Start Last Admin Trade Name Freq PRN Reason Stop Dose Admin Acetaminophen 650 mg 03/01/19 18:21 03/03/19 13:22 Tylenol - PO 650 mg Q6H PRN Administration PAIN LEVEL 4 - 6 Benzocaine/Menthol 1 each 03/02/19 13:05 03/02/19 17:26 Cepacol Lozenge - MM 1 each Q4H PRN Administration SORE THROAT Cinacalcet 30 mg 03/02/19 10:00 03/04/19 09:28 Sensipar - PO 30 mg DAILY FARIHA Administration Losartan Potassium 50 mg 03/02/19 10:00 03/04/19 09:29 Cozaar - PO 50 mg DAILY FARIHA Administration Multi-Ingredient Ointment 1 applic 03/02/19 13:15 03/03/19 22:15 Zinc Oxide TP 1 applic BID FARIHA Administration Pantoprazole Sodium 40 mg 03/01/19 10:00 03/04/19 09:29 Protonix - PO 40 mg DAILY FARIHA Administration Tamsulosin HCl 0.4 mg 03/01/19 08:30 03/04/19 09:29 Flomax - PO 0.4 mg DAILY@0830 FARIHA Administration ASSESSMENT/PLAN: 88 yo M with PMHx of HTN, BPH, recent diagnosis of Parathyroid neoplasm and hypercalcemia and recent fall (8 wks ago) p/w 2 day hx of generalized weakness and poor PO intake/Dehydration in setting of being trapped under exercise equipment. 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 approximately 2.8 cm. Significant mass effect on R lateral ventricle w/ midline shift, subfalcine herniation (adriana 10-11mm). Neuro exam intact, no focal neuro deficits, AOX3 and agreed to the surgery. Now POD5 Right Sided Craniotomy and Evacuation of Subacute on Chronic Subdural Hematoma Neuro exam unchanged. rpt CT headx2, reviewed above, shows mild improvement of midline shift. afebrile VSS neurosurgery following, Dr Carnes incentive spirometry Maintaining systolic BP <150mmHg per neurosurgery recs. fall precautions s/p post op cefazolin Generalized weakness, and poor PO intake/Dehydration in setting of mild hypercalcemia and being trapped under exercise equipment Hypercalcemia likely 2/2 parathyroid mass, pt worked up recently at [facility], records obtained and placed in chart. c/w NS @100/hr TSH nl, f/u Cortisol levels, 24 hr Urinary calcium, ionized calcium, urinary cortisol, Vit D levels (authorization required, cannot order) elevated PTH 68 CXR no acute pathology, +old rib trauma UA, ucx neg [id number], few PVCs, Q waves- III, AVF, II, normal axis, no MOMO/STD, QTc-401 , normal intervals trop negx2 Endocrine Consulted, Dr Petit PT eval Dysuria UA/UCx ordered, UA positive for hematuria, will monitor and repeat H/H Parathyroid neoplasm: Recently diagnosed at [place], records obtained and placed in chart. At [place] PTH was 121, vit D was nl 25, 1, 25 vit D was nl, kidney U/S nl. pt was eval by their endo Dr Fountain who did not think pt would be a good candidate for parathyroid surgery and would instead benefit from med management including cinicalcet w/ possible addition of antiresorptive (alendronate) at f/u within a few weeks -elevated PTH 68 Mild Rhabdo - resolved w/ IVF. HTN c/w home Losartan 50mg qd avoid thiazides in setting of hypercalcemia Maintaining systolic BP <150mmHg per neurosurgery recs. Chronic limited right shoulder - exacerbated by recent fall and now again by exercise equipment PT eval FEN No IVF replete prn soft diet PPx: Hold SQH- CT head showed bleed above SCDs protonix daily to avoid Cushings ulcer Code: Full code Dispo: monitor on med/surg, awaiting placement Visit type - Emergency Visit Emergency Visit: No - New Patient This patient is new to me today: No - Critical Care Critical Care patient: No
--- NOTE | 2019-03-04 16:50 | PN ---
Teaching Attending Note Name of Resident: Abraham Almaraz ATTENDING PHYSICIAN STATEMENT I saw and evaluated the patient. I reviewed the resident's note and discussed the case with the resident. I agree with the resident's findings and plan as documented. SUBJECTIVE: Patient is comfortable with no acute distress. had a urinary burning sensation yesterday. OBJECTIVE: Vital Signs Temperature 98.1 F 03/04/19 14:50 Pulse Rate 91 H 03/04/19 14:50 Respiratory Rate 18 03/04/19 14:50 Blood Pressure 151/76 03/04/19 14:50 O2 Sat by Pulse Oximetry (%) 97 03/03/19 21:00 GENERAL: AA0x3 , comfortable . HEAD: s/p right craniotomy/hematoma evacuation. covered with the bandage EYES: PERRL, extraocular movements intact, sclera anicteric, conjunctiva clear. ENT: Ears normal, oropharynx clear without exudates, moist mucous membranes. NECK: Trachea midline, full range of motion, supple. LUNGS: Breath sounds equal, clear to auscultation bilaterally, no wheezes, no crackles, no accessory muscle use. HEART: Regular rate and rhythm, S1, S2 without murmur, rub or gallop. ABDOMEN: Soft, NT,ND , normoactive bowel sounds, no guarding, no rebound, no hepatosplenomegaly, no masses. EXTREMITIES: 2+ pulses, warm, well-perfused, no edema. NEUROLOGICAL: Cranial nerves II through XII grossly intact. Normal speech. PSYCH: Normal mood, normal affect. SKIN: Warm, dry, normal turgor, no rashes or lesions noted Neuro: No facial droop, EOMI,drainage is removed. head is wrapped with bandage. CBCD WBC 7.5 K/mm3 (4.0-10.0) 03/02/19 06:55 RBC 3.86 M/mm3 (4.00-5.60) L 03/02/19 06:55 Hgb 11.3 GM/dL (11.7-16.9) L 03/02/19 06:55 Hct 33.6 % (35.4-49) L 03/02/19 06:55 MCV 86.9 fl (80-96) 03/02/19 06:55 MCHC 33.6 g/dl (32.0-35.9) 03/02/19 06:55 RDW 13.9 % (11.9-15.9) 03/02/19 06:55 Plt Count 210 K/MM3 (134-434) D 03/02/19 06:55 MPV 9.5 fl (7.5-11.1) 03/02/19 06:55 CMP Sodium 140 mmol/L (136-145) 03/02/19 06:55 Potassium 4.0 mmol/L (3.5-5.1) 03/02/19 06:55 Chloride 109 mmol/L (98-107) H 03/02/19 06:55 Carbon Dioxide 26 mmol/L (21-32) 03/02/19 06:55 Anion Gap 5 MMOL/L (8-16) L 03/02/19 06:55 BUN 11.0 mg/dL (7-18) 03/02/19 06:55 Creatinine 0.8 mg/dL (0.55-1.3) 03/02/19 06:55 Random Glucose 114 mg/dL (74-106) H 03/02/19 06:55 Calcium 9.8 mg/dL (8.5-10.1) 03/02/19 06:55 Total Bilirubin 0.7 mg/dL (0.2-1) 03/02/19 06:55 AST 30 U/L (15-37) 03/02/19 06:55 ALT 41 U/L (13-61) 03/02/19 06:55 Alkaline Phosphatase 156 U/L (45-117) H 03/02/19 06:55 Total Protein 5.9 g/dl (6.4-8.2) L 03/02/19 06:55 Albumin 3.2 g/dl (3.4-5.0) L 03/02/19 06:55 CARDIAC ENZYMES Creatine Kinase 264 U/L (26-308) 02/26/19 05:30 Troponin I 0.02 ng/ml (0.00-0.05) 02/26/19 05:30 Current Medications Generic Name Dose Route Start Last Admin Trade Name Freq PRN Reason Stop Dose Admin Acetaminophen 650 mg 03/01/19 18:21 03/04/19 14:56 Tylenol - PO 650 mg Q6H PRN Administration PAIN LEVEL 4 - 6 Benzocaine/Menthol 1 each 03/02/19 13:05 03/02/19 17:26 Cepacol Lozenge - MM 1 each Q4H PRN Administration SORE THROAT Cinacalcet 30 mg 03/02/19 10:00 03/04/19 09:28 Sensipar - PO 30 mg DAILY FARIHA Administration Losartan Potassium 50 mg 03/02/19 10:00 03/04/19 09:29 Cozaar - PO 50 mg DAILY FARIHA Administration Multi-Ingredient Ointment 1 applic 03/02/19 13:15 03/04/19 15:04 Zinc Oxide TP 1 applic BID FARIHA Administration Pantoprazole Sodium 40 mg 03/01/19 10:00 03/04/19 09:29 Protonix - PO 40 mg DAILY FARIHA Administration Tamsulosin HCl 0.4 mg 03/01/19 08:30 03/04/19 09:29 Flomax - PO 0.4 mg DAILY@0830 FARIHA Administration Home Medications Medication Instructions Recorded Cinacalcet HCl [Sensipar -] 30 mg PO DAILY 02/26/19 Losartan Potassium 50 mg PO DAILY 02/26/19 Microbiology 03/02/19 11:15 Urine - Urine Clean Catch Urine Culture - Final Enterococcus Faecalis 02/26/19 03:29 Urine - Urine Clean Catch Urine Culture - Final ASSESSMENT AND PLAN: Patient is an 88yo male with PMhx of HTN, with 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 he was found to have Right subdural hematoma # Acute UTI: growing ,Enterococcus Faecalis, sensitive to levaquin , will treat for 5 days. bacid is added. # POD #7 s/p right craniotomy/hematoma evacuation. s/p removal of YANNICK drainage due to acute on chronic subdural hematoma s/p fall in an outpatient setting ; subdural hematoma with mass effect and mid line shift . continue neuro exam . Elevate HOB. # Acute mild Rhabdo :improved s/p IVF. # hypercalcemia : with elevated PTH , due to primary hyperparathyroidism. # HTN: continue losartan # Throat irritation: on Cepacol DVT PX : Scds dc planning to rehab once bed is available
[2019-03-04 17:05] VITALS: BMI 28.2
[2019-03-04] MEDS ORDERED: DOCUSATE SODIUM 100 MG CAPSULE (FP) PO ONE (19:28)
[2019-03-04] MEDS: LACTOBACILLUS ACIDOPHILUS 1 TABLET PO SCH (23:09)
[2019-03-05] MEDS ORDERED: PT OWN MED DRAWER 7, Y5N ONE (09:44)
--- NOTE | 2019-03-05 09:51 | DS ---
Physical Exam: SUBJECTIVE: Patient seen and examined at bedside. No acute events overnight. POD7 Right Sided Craniotomy and Evacuation of Subacute on Chronic Subdural Hematoma. no complaints. tolerating PO. denies fever, chills, cp, sob, n/v/d, urinary sxs, saddle anesthesia. OBJECTIVE: Vital Signs Period Temp Pulse Resp BP Sys/Mckeon Pulse Ox Last 24 Hr 97.5 F-98.3 F 79-91 18-18 116-151/45-76 96 PHYSICAL EXAM GENERAL: AOX3, talking slowly, NAD. +davalos HEAD: Subgaleal YANNICK drain removed, surgical scar on L parietal surface EYES: Pupils pinpoint equal, round and reactive to light, L eye lens opacity EARS, NOSE, THROAT: MMM. Poor dentition NECK: supple LUNGS: CTAB HEART: RRR, normal S1 and S2 ABDOMEN: Soft, NTND, normoactive bowel sounds, MUSCULOSKELETAL: Normal range of motion at all joints. No bony deformities or tenderness. LOWER EXTREMITIES: 2+ pulses, warm, well-perfused. No calf tenderness. No peripheral edema. NEUROLOGICAL: Slow/ low toned speech. gait not observed. Strength 4/5 LUE. RUE 3/5 (chronic due to right shoulder injury). Strength 4/5 LE b/l. Sensation symmetrically intact b/l upper and lower extremities. CN 2-12 intact LABS Laboratory Results - last 24 hr 03/04/19 09:30 Urine Color Yellow Urine Appearance Cloudy Urine pH 8.0 Ur Specific [place] 1.010 Urine Protein Negative Urine Glucose (UA) Negative Urine Ketones Negative Urine Blood 3+ H Urine Nitrite Negative Urine Bilirubin Negative Urine Urobilinogen 0.2 Ur Leukocyte Esterase Negative Urine WBC (Auto) 1 Urine RBC (Auto) 360 Urine Casts (Auto) 6 U Epithel Cells (Auto) 1.1 Urine Bacteria (Auto) 3629.9 [id number] CT/HEAD CT WITHOUT CONTRAST CT scan of the brain c-. Trapped under exercise machine. Findings. The head was tilted during the acquisition of images Serial axial images of the brain were obtained from foramen magnum to the cranial vertex without intravenous contrast. The study was supplemented with computer-generated coronal and sagittal reconstruction images. There is large right subdural hematoma extending from the superior aspect of the right temporal lobe convexity toward the vertex, with multiple internal septations, multiloculated acute on chronic subdural hematoma with fluid levels. Maximal width of the subdural hematoma approximately 2.8 cm. Significant mass effect on right lateral ventricle with midline shift, subfalcine herniation (adriana 10-11mm). No evidence of hydrocephalus. No evidence of acute intraventricular hemorrhage. Cerebral cortical atrophy without effacement of the cortical sulci sylvian fissure. No evidence of acute intra-axial hematoma. No evidence of uncal herniation. No subarachnoid hemorrhage is seen. Examination of the bone windows show no fracture. The visualized paranasal sinuses and mastoid air cells are clear. Symmetrical ocular globes. Unremarkable retro-orbital soft tissues. Impression. There is large right subdural hematoma extending from the superior aspect of the right temporal lobe convexity toward the vertex, with multiple internal septations, multiloculated acute on chronic subdural hematoma with fluid levels. Maximal width of the subdural hematoma approximately 2.8 cm. Significant mass effect on right lateral ventricle with midline shift, subfalcine herniation (adriana 10-11mm). No evidence of hydrocephalus. No evidence of uncal herniation. Reported By: Murray Kaba MD 02/26/19 0803 [id number] CT/HEAD CT WITHOUT CONTRAST Cranial CT without contrast Clinical information given: postop In comparison to a CT study performed 15 hours earlier note is made of interval right parietal craniotomy with evacuation of the majority of the very large right- sided panhemispheric acute on chronic subdural hematoma. Air is now visualized within the majority of the dilated subdural space. On the current exam there is moderate to marked leftward midline displacement which appears mildly improved. As on the preoperative study the left frontal calvarium at the high convexity level demonstrates an attenuated appearance which could conceivably be postsurgical. Correlate clinically. Impression: As noted above. Reported By: Mars Burgess MD 02/26/19 1818 [id number] CT/HEAD CT WITHOUT CONTRAST Clinical information. AMS. CT brain noncontrast study. Direct axial images were obtained with coronal, sagittal reconstruction. Comparison study. Postop CT of the brain February 26, 2019 at 5:18 PM. Status post evacuation of acute on chronic subdural hematoma. Status post right frontal/parietal craniotomy. Right pneumocephalus with maximal width approximately 2.6 cm, with mass effect on the right frontal cerebral convexity. Small residual hyperdense blood products are seen along the inner table of the right frontal parietal calvarium toward the vertex. Air-fluid level is seen with dependent hypodense extra-axial fluid measuring 1.4 HU similar to CSF 2.2 HU (hygroma). Partially effaced right sylvian fissure. Cortical sulci are partially effaced. There is mild mass effect on the right lateral ventricle with midline shift of the septum pellucidum to the left side unchanged from prior postop CT of the brain. Subfalcine herniation persists. Overall decrease mass effect, midline shift, subfalcine herniation in comparison to preoperative CT of the brain. No evidence of hydrocephalus. No evidence subarachnoid hemorrhage. No evidence of acute intra-axial collection. No CT evidence of acute territorial ischemic changes. No evidence of opacification of the mastoid air cells, visualized paranasal sinuses. Impression. Please refer to the body of report Reported By: Murray Kaba MD 02/27/19 0824 HOSPITAL COURSE: Date of Admission:02/26/19 HPI: Pt is an 88 yo M with PMHx of HTN, recent diagnosis of Parathyroid neoplasm and hypercalcemia presenting with 2 day hx of generalized weakness. Pt was found by police in his house following a phone call from the niece to police as as pt could not be reached by phone. Pt was trapped under an excercise machine and was unable to reach anyone as he did not have his phone close to him. He reports being without water and food for about 2 days but denies a fall, head trauma or loss of consciousness. Pt lives alone, is independent in ADLS, walks without support, and reports positioning himself accidentally in reverse in the exercise machine and being unable to free himself due to weakness of his right shoulder (chronic injury). Pt denies fevers, cough, SOB, hematuria, renal stones, but admits to generalized body pains. He was recently admitted in [facility] and on imaging was found to have a tumor (likely benign) of parathyroid gland for which he was put on medication that he is yet to pickle processor. Says he was told that he would not require sx. Pt reports a recent fall 8 weeks ago, where he fractured 5 ribs and reinjured his right shoulder, describes the fall as mechanical Date of Discharge: 03/05/19 88 yo M with PMHx of HTN, BPH, recent diagnosis of Parathyroid neoplasm and hypercalcemia and recent fall (8 wks ago) p/w 2 day hx of generalized weakness and poor PO intake/Dehydration in setting of being trapped under exercise equipment. 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 approximately 2.8 cm. Significant mass effect on R lateral ventricle w/ midline shift, subfalcine herniation (adriana 10-11mm). On admission Neuro exam intact, no focal neuro deficits, AOX3 and agreed to the surgery. neurosurgery consulted, Dr Carnes, and pt went for urgent surgery. Admission labs/imaging: CXR no acute pathology (+old rib trauma), [id number] , few PVCs, Q waves- III, AVF, II, normal axis, no MOMO/STD, QTc-401, normal intervals, trop negx2, UA, ucx neg, TSH nl, Hypercalcemia on CMP 2/2 parathyroid mass, pt worked up recently at [facility], records obtained and placed in chart, elevated PTH 68. Endocrine Consulted, Dr Petit, pt cont on home cinacalcet. pt also was noted w/ Mild Rhabdo which subsequently resolved w/ IVF. Now POD7 Right Sided Craniotomy and Evacuation of Subacute on Chronic Subdural Hematoma w/o complications Neuro exam unchanged/at baseline. rpt CT headx2, reviewed above, shows mild improvement of midline shift. afebrile VSS BP was Maintained systolic BP <150mmHg w/ home losartan as per neurosurgery recs. pt is s/p post op cefazolin PT evaluated, pt will need QUETA for more PT UTI - pt noted w/ dysuria while in hospital. UA positive for hematuria, Ucx 03/02 growing tetracycline resistant enterococcus facealis. s/p levaqiun 500mg x2d, will cont for 5 more days at dc H/H stable, non septic appearing, afebrile, no leukocytosis, VSS Parathyroid neoplasm: Hypercalcemia 2/2 parathyroid mass, pt worked up recently at [facility], records obtained and placed in chart, At [place] PTH was 121 , vit D was nl 25, 1,25 vit D was nl, kidney U/S nl. pt was eval by their endo Dr Fountain who did not think pt would be a good candidate for parathyroid surgery and would instead benefit from med management including cinicalcet w/ possible addition of antiresorptive (alendronate) at f/u within a few weeks -elevated PTH 68 -ionized calcium elevated -endocrine outpt f/u cont w/ home cinacalcet at dc BPH cont flomax .4 qd at dc HTN c/w home Losartan 50mg qd at dc avoid thiazides in setting of hypercalcemia Chronic limited right shoulder - exacerbated by recent fall and now again by exercise equipment PT evaluated, pt will need QUETA for more PT pt stable and ready for dc w/ appropriate f/u Minutes to complete discharge: 38 Discharge Summary Reason For Visit: HYPERCALCEMIA Current Active Problems Hypercalcemia (Acute) Hyperparathyroidism (Acute) Subdural hematoma (Acute) Unable to ambulate (Acute) Condition: Fair - Instructions Diet, Activity, Other Instructions: you came in for weakness and because you were trapped under your exercise equipment and were found to have a brain bleed and a urinary tract infection. please resume your home meds please take antibiotic levaquin 500mg daily for 5 more days please take flomax .4mg once a day for your prostate and to help you urinate please follow up with your PCP within 1 week please follow up with Neuro surgeon Dr Carnes within 1 week for wound care and suture removal. please follow up with your hydraulic controls technician or with hydraulic controls technician Dr Petit within 1 week to discuss your penitentiary plan regarding your recently diagnosed Parathyroid neoplasm and high calcium levels if you experience any worsening headache, limb weakness or numbness or incontinence, or blurry vision or speech slurring or fevers, chills , burning on urination, blood in urine, please call 911 or go to the ER Referrals: Desmond Petit MD [Staff Physician] - 1 Week Dashawn Carnes MD [Staff Physician] - 1 Week Disposition: [facility] - Home Medications Comprehensive Discharge Medication List: Ambulatory Orders Cinacalcet HCl [Sensipar -] 30 mg PO DAILY 02/26/19 Losartan Potassium 50 mg PO DAILY 02/26/19 Acetaminophen [Tylenol .Regular Strength -] 650 mg PO Q6H PRN tablet 03/05/19 Lactobacillus Acidophilus [Bacid -] 1 tab PO BID tab 03/05/19 Tamsulosin HCl [Flomax -] 0.4 mg PO DAILY@0830 cap.er.24h 03/05/19 Zinc Oxide 1 applic TP BID tube 03/05/19 levoFLOXacin [Levaquin -] 250 mg PO DAILY@0600 #0 tablet 03/05/19 This patient is new to me today: Yes Date on this admission: 03/05/19 Emergency Visit: Yes ED Registration Date: 02/26/19 Care time: The patient presented to the Emergency Department on the above date and was hospitalized for further evaluation of their emergent condition. Critical Care patient: No - Discharge Referral Referred to [facility] Med P.C.: No
[2019-03-05] MEDS: PANTOPRAZOLE 40 MG TABLET (FP) PO SCH (09:54)
[2019-03-05] MEDS: LOSARTAN POTASSIUM 50 MG TABLET (FP) PO SCH (09:54)
[2019-03-05] MEDS: CINACALCET HCL 30 MG TAB (FP) PO SCH (09:54)
[2019-03-05] MEDS: LACTOBACILLUS ACIDOPHILUS 1 TABLET PO SCH ×2 (09:54→21:48)
[2019-03-05] MEDS: TAMSULOSIN HCL 0.4 MG CAP PO SCH (09:55)
[2019-03-05] MEDS ORDERED: SENNOSIDES 8.6MG TABLET (FP) PO ONE (10:00)
[2019-03-05] MEDS: ZINC OXIDE 20% TOPICAL OINTMENT 30 GM TUBE TP SCH ×2 (11:19→21:50)
--- NOTE | 2019-03-05 12:43 | PN ---
Progress Note (short form) - Note Progress Note: Resting in NAD. No acute events overnight. No CP or SOB. OBJECTIVE: Intake & Output 03/02/19 03/03/19 03/04/19 03/05/19 23:59 23:59 23:59 23:59 Intake Total 4125 1030 850 Output Total 1700 1900 5 570 Balance 2425 -870 -1175 -570 Last Vital Signs Temp Pulse Resp BP Pulse Ox 98.0 F 83 17 112/75 96 03/05/19 09:00 03/05/19 09:00 03/05/19 09:00 03/05/19 09:00 03/04/19 21:00 Active Medications Acetaminophen (Tylenol -) 650 mg PO Q6H PRN PRN Reason: PAIN LEVEL 4 - 6 Last Admin: 03/04/19 23:08 Dose: 650 mg Benzocaine/Menthol (Cepacol Lozenge -) 1 each MM Q4H PRN PRN Reason: SORE THROAT Last Admin: 03/02/19 17:26 Dose: 1 each Cinacalcet (Sensipar -) 30 mg PO DAILY [facility] Last Admin: 03/05/19 09:54 Dose: 30 mg Docusate Sodium (Colace -) 100 mg PO TID [facility] Lactobacillus Acidophilus (Bacid -) 1 tab PO BID [facility] Last Admin: 03/05/19 09:54 Dose: 1 tab Levofloxacin (Levaquin -) 500 mg PO DAILY@0600 [facility] Losartan Potassium (Cozaar -) 50 mg PO DAILY [facility] Last Admin: 03/05/19 09:54 Dose: 50 mg Multi-Ingredient Ointment (Zinc Oxide) 1 applic TP BID [facility] Last Admin: 03/05/19 11:19 Dose: 1 applic Pantoprazole Sodium (Protonix -) 40 mg PO DAILY [facility] Last Admin: 03/05/19 09:54 Dose: 40 mg Tamsulosin HCl (Flomax -) 0.4 mg PO DAILY@0830 [facility] Last Admin: 03/05/19 09:55 Dose: 0.4 mg Gen: NAD at rest Heart: RRR Lung: decreased breath sounds at the bases Abd: soft, nontender Ext: no edema ASSESSMENT AND PLAN: Acute/Subacute Subdural Hematoma Hypercalcemia/Hyperparathyroidism Parathyroid neoplasm Rhabdomyolysis Dehydration HTN Pain control Neuro checks Incentive Spirometry D/C planning Dr Gupta
[2019-03-05] MEDS: DOCUSATE SODIUM 100 MG CAPSULE (FP) PO SCH ×2 (15:02→21:48)
[2019-03-05] MEDS ORDERED: MAG HYDROX/AL HYDROX/SIMETH 30 ML UNIT-DOSE CUP PO ONE (21:18)
--- NOTE | 2019-03-05 22:01 | PN ---
Teaching Attending Note Name of Resident: Hemal Caruso ATTENDING PHYSICIAN STATEMENT I saw and evaluated the patient. I reviewed the resident's note and discussed the case with the resident. I agree with the resident's findings and plan as documented. SUBJECTIVE: Patient is feeling better , no further burning sensation , improved his symptoms. OBJECTIVE: Vital Signs Temperature 97.3 F L 03/05/19 18:25 Pulse Rate 93 H 03/05/19 18:25 Respiratory Rate 18 03/05/19 18:25 Blood Pressure 136/75 03/05/19 18:25 O2 Sat by Pulse Oximetry (%) 96 03/04/19 21:00 GENERAL: AA0x3 , comfortable . HEAD: s/p right craniotomy/hematoma evacuation. covered with the bandage EYES: PERRL, extraocular movements intact, sclera anicteric, conjunctiva clear. ENT: Ears normal, oropharynx clear without exudates, moist mucous membranes. NECK: Trachea midline, full range of motion, supple. LUNGS: Breath sounds equal, clear to auscultation bilaterally, no wheezes, no crackles, no accessory muscle use. HEART: Regular rate and rhythm, S1, S2 without murmur, rub or gallop. ABDOMEN: Soft, NT,ND , normoactive bowel sounds, no guarding, no rebound, no hepatosplenomegaly, no masses. EXTREMITIES: 2+ pulses, warm, well-perfused, no edema. NEUROLOGICAL: Cranial nerves II through XII grossly intact. Normal speech. PSYCH: Normal mood, normal affect. SKIN: Warm, dry, normal turgor, no rashes or lesions noted Neuro: No facial droop, EOMI,drainage is removed. head is wrapped with bandage. CBCD WBC 7.5 K/mm3 (4.0-10.0) 03/02/19 06:55 RBC 3.86 M/mm3 (4.00-5.60) L 03/02/19 06:55 Hgb 11.3 GM/dL (11.7-16.9) L 03/02/19 06:55 Hct 33.6 % (35.4-49) L 03/02/19 06:55 MCV 86.9 fl (80-96) 03/02/19 06:55 MCHC 33.6 g/dl (32.0-35.9) 03/02/19 06:55 RDW 13.9 % (11.9-15.9) 03/02/19 06:55 Plt Count 210 K/MM3 (134-434) D 03/02/19 06:55 MPV 9.5 fl (7.5-11.1) 03/02/19 06:55 CMP Sodium 140 mmol/L (136-145) 03/02/19 06:55 Potassium 4.0 mmol/L (3.5-5.1) 03/02/19 06:55 Chloride 109 mmol/L (98-107) H 03/02/19 06:55 Carbon Dioxide 26 mmol/L (21-32) 03/02/19 06:55 Anion Gap 5 MMOL/L (8-16) L 03/02/19 06:55 BUN 11.0 mg/dL (7-18) 03/02/19 06:55 Creatinine 0.8 mg/dL (0.55-1.3) 03/02/19 06:55 Random Glucose 114 mg/dL (74-106) H 03/02/19 06:55 Calcium 9.8 mg/dL (8.5-10.1) 03/02/19 06:55 Total Bilirubin 0.7 mg/dL (0.2-1) 03/02/19 06:55 AST 30 U/L (15-37) 03/02/19 06:55 ALT 41 U/L (13-61) 03/02/19 06:55 Alkaline Phosphatase 156 U/L (45-117) H 03/02/19 06:55 Total Protein 5.9 g/dl (6.4-8.2) L 03/02/19 06:55 Albumin 3.2 g/dl (3.4-5.0) L 03/02/19 06:55 CARDIAC ENZYMES Creatine Kinase 264 U/L (26-308) 02/26/19 05:30 Troponin I 0.02 ng/ml (0.00-0.05) 02/26/19 05:30 Current Medications Generic Name Dose Route Start Last Admin Trade Name Freq PRN Reason Stop Dose Admin Acetaminophen 650 mg 03/01/19 18:21 03/04/19 23:08 Tylenol - PO 650 mg Q6H PRN Administration PAIN LEVEL 4 - 6 Benzocaine/Menthol 1 each 03/02/19 13:05 03/02/19 17:26 Cepacol Lozenge - MM 1 each Q4H PRN Administration SORE THROAT Cinacalcet 30 mg 03/02/19 10:00 03/05/19 09:54 Sensipar - PO 30 mg DAILY FARIHA Administration Docusate Sodium 100 mg 03/05/19 14:00 03/05/19 21:48 Colace - PO 100 mg TID FARIHA Administration Lactobacillus Acidophilus 1 tab 03/04/19 22:00 03/05/19 21:48 Bacid - PO 1 tab BID FARIHA Administration Levofloxacin 500 mg 03/06/19 10:00 Levaquin - PO DAILY@0600 FARIHA Losartan Potassium 50 mg 03/02/19 10:00 03/05/19 09:54 Cozaar - PO 50 mg DAILY FARIHA Administration Multi-Ingredient Ointment 1 applic 03/02/19 13:15 03/05/19 21:50 Zinc Oxide TP 1 applic BID FARIHA Administration Pantoprazole Sodium 40 mg 03/01/19 10:00 03/05/19 09:54 Protonix - PO 40 mg DAILY FARIHA Administration Tamsulosin HCl 0.4 mg 03/01/19 08:30 03/05/19 09:55 Flomax - PO 0.4 mg DAILY@0830 FARIHA Administration Home Medications Medication Instructions Recorded Cinacalcet HCl [Sensipar -] 30 mg PO DAILY 02/26/19 Losartan Potassium 50 mg PO DAILY 02/26/19 Acetaminophen [Tylenol .Regular 650 mg PO Q6H PRN tablet 03/05/19 Strength -] Lactobacillus Acidophilus [Bacid -] 1 tab PO BID tab 03/05/19 Tamsulosin HCl [Flomax -] 0.4 mg PO DAILY@0830 cap.er.24h 03/05/19 Zinc Oxide 1 applic TP BID tube 03/05/19 levoFLOXacin [Levaquin -] 500 mg PO DAILY 5 Days #5 tablet 03/05/19 03/02/19 11:15 Urine - Urine Clean Catch Urine Culture - Final Enterococcus Faecalis 02/26/19 03:29 Urine - Urine Clean Catch Urine Culture - Final ASSESSMENT AND PLAN: Patient is an 88yo male with PMhx of HTN, with 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 he was found to have Right subdural hematoma # Acute UTI: growing ,Enterococcus Faecalis, sensitive to levaquin continue levaquin for 5 days. bacid is added. # POD #8 s/p right craniotomy/hematoma evacuation. s/p removal of YANNICK drainage due to acute on chronic subdural hematoma s/p fall in an outpatient setting ; subdural hematoma with mass effect and mid line shift . continue neuro exam . Elevate HOB. # Acute mild Rhabdo :improved s/p IVF. # hypercalcemia : with elevated PTH , due to primary hyperparathyroidism. # HTN: continue losartan # Throat irritation: on Cepacol DVT PX : Scds dc planning to rehab once bed is available
[2019-03-06] MEDS: DOCUSATE SODIUM 100 MG CAPSULE (FP) PO SCH (06:39)
[2019-03-06] MEDS ORDERED: POLYETHYLENE GLYCOL 3350 119 GM BTL PO ONE (07:29)
--- NOTE | 2019-03-06 11:38 | PN ---
Progress Note (short form) - Note Progress Note: The patient was out of bed ambulating this morning. He told me that he "felt more optimistic." His cranial incision is healing well. He has no focal motor deficits. He will be discharged to [place] rehab later today. He will need a f/ u appt with me in one week so that I can remove his haresh. Will sign off.
[2019-03-06] MEDS ORDERED: PT OWN MED DRAWER 7, Y5N ONE (11:40)
[2019-03-06] MEDS: LACTOBACILLUS ACIDOPHILUS 1 TABLET PO SCH (11:44)
[2019-03-06] MEDS: TAMSULOSIN HCL 0.4 MG CAP PO SCH (11:44)
[2019-03-06] MEDS: LOSARTAN POTASSIUM 50 MG TABLET (FP) PO SCH (11:44)
[2019-03-06] MEDS: CINACALCET HCL 30 MG TAB (FP) PO SCH (11:45)
[2019-03-06] MEDS: PANTOPRAZOLE 40 MG TABLET (FP) PO SCH (11:45)
[2019-03-06] MEDS: ZINC OXIDE 20% TOPICAL OINTMENT 30 GM TUBE TP SCH (11:45)
--- NOTE | 2019-03-06 12:26 | PN ---
Progress Note (short form) - Note Progress Note: SUBJECTIVE: Patient seen and examined at bedside. No acute events overnight. POD8 Right Sided Craniotomy and Evacuation of Subacute on Chronic Subdural Hematoma. no complaints. tolerating PO. +BM denies fever, chills, cp, sob, n/v/d , urinary sxs, saddle anesthesia. OBJECTIVE: Vital Signs Period Temp Pulse Resp BP Sys/Mckeon Pulse Ox Last 24 Hr 97.3 F-97.6 F 79-95 18-18 106-136/59-82 98 PHYSICAL EXAM GENERAL: AOX3, talking slowly, NAD. +davalos HEAD: Subgaleal YANNICK drain removed, surgical scar w/ stitches on R parietal surface EYES: Pupils pinpoint equal, round and reactive to light, L eye lens opacity EARS, NOSE, THROAT: MMM. Poor dentition NECK: supple LUNGS: CTAB HEART: RRR, normal S1 and S2 ABDOMEN: Soft, NTND, normoactive bowel sounds, MUSCULOSKELETAL: Normal range of motion at all joints. No bony deformities or tenderness. LOWER EXTREMITIES: 2+ pulses, warm, well-perfused. No calf tenderness. No peripheral edema. NEUROLOGICAL: Slow/ low toned speech. gait not observed. Strength 4/5 LUE. RUE 3/5 (chronic due to right shoulder injury). Strength 4/5 LE b/l. Sensation symmetrically intact b/l upper and lower extremities. CN 2-12 intact A/P 88 yo M with PMHx of HTN, BPH, recent diagnosis of Parathyroid neoplasm and hypercalcemia and recent fall (8 wks ago) p/w 2 day hx of generalized weakness and poor PO intake/Dehydration in setting of being trapped under exercise equipment. Now found w/ Acute on chronic large R subdural hematoma requiring ICU and surgery POD8 Right Sided Craniotomy and Evacuation of Subacute on Chronic Subdural Hematoma. - no complaints. tolerating PO. +BM was to be dc yesterday to [facility] [place] but bed was not available bed is available today and pt is stable for DC. pt says he feels better/stronger
[2019-03-06 15:16] VITALS: BP 136/72; PULSE 84; TEMP 98.1
--- NOTE | 2019-03-06 17:03 | PN ---
Teaching Attending Note Name of Resident: Obi Arias ATTENDING PHYSICIAN STATEMENT I saw and evaluated the patient. I reviewed the resident's note and discussed the case with the resident. I agree with the resident's findings and plan as documented. SUBJECTIVE: seen at 11 am No fever or chills. No pain. slight abd discomfort . Had a BM this am . No weakness, numbness, tingling. OBJECTIVE: NAD Lungs: CTAB Abd:soft, NT, ND , NL BS Ext : No edema or erythema. Skin : R parietal surgical wound with haresh. 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 he was found to have R subdural hematoma 1- Acute on chronic subdural hematoma s/p evacuation 2- E faecalis complicated UTI 3- hypercalcemia 4- hyperparathyroidism 5- HTN plan : - f/u with Neuro sx in 1 week - f/u with endo for hyperparathyroidism - cont flomax after dc - cont levaquin to complete total of 7 days - cont losartan after dc patient was dc to rehab yesterday. Left today
== END 2019-03-06 14:00 | DRG 25 ==
LOC: JER 21:15 → JERBED 02-26 00:37 → JICU 02-26 04:10 → J5S 03-01 17:31
PROVIDERS: ADMIT Internal Medicine; ATTEND Internal Medicine
PROC: 00C40ZZ Extirpation of Matter from Intracranial Subdural Space, Open Approach (ICD-10-PCS; principal; 2019-02-26 10:00)
PROC: 00P Central Nervous System and Cranial Nerves, Removal (ICD-10-PCS; 2019-03-01)
DX: S06.5X0A Traumatic subdural hemorrhage without loss of consciousness, initial encounter (principal); G93.5 Compression of brain; M62.82 Rhabdomyolysis; N39.0 Urinary tract infection, site not specified; I10 Essential (primary) hypertension; E86.0 Dehydration; D72.829 Elevated white blood cell count, unspecified; E21.3 Hyperparathyroidism, unspecified; W19.XXXA Unspecified fall, initial encounter; Y99.8 Other external cause status; Y93.89 Activity, other specified; Y92.89 Other specified places as the place of occurrence of the external cause; R26.2 Difficulty in walking, not elsewhere classified; B95.2 Enterococcus as the cause of diseases classified elsewhere; N40.0 Benign prostatic hyperplasia without lower urinary tract symptoms; D49.7 Neoplasm of unspecified behavior of endocrine glands and other parts of nervous system
CPT/HCPCS: 36415; 70450-TC; 71045-TC-FY; 80053; 81003; 82330; 82550; 82552; 82553; 83735; 83970; 84100; 84443; 84484; 85025; 85027; 85610; 85730; 86850; 86900; 86901; 86922; 87086; 87186; 88304-TC; 93005; 93010; 97116-GP; 97162-GP; 99283-25; J0131; J7030

== ENCOUNTER 2020-10-28 16:29 | Inpatient (IN) | payer OTHER ==
[2020-10-28] MEDS ORDERED: AZITHROMYCIN IVPB 500 MG in DEXTROSE 5%-WATER - 250 ML IVPB ONE (18:05)
[2020-10-28] MEDS ORDERED: CEFTRIAXONE 1 GM in DEXTROSE 5%-WATER - 100 ML IVPB ONE (18:05)
[2020-10-28 19:02] LABS: VENOUS BASE EXCESS 0.5 mmol/L (-2-2); VENOUS PCO2 42.4 mmHg (38-52); VENOUS PH 7.398 (7.310-7.410)
[2020-10-28 19:05] LABS: BASO % 0.2 % (0-2.0); EOS % 0.1 % (0-4.5); HEMATOCRIT 42.4 % (35.4-49); HEMOGLOBIN 14.1 GM/dL (11.7-16.9); LYMPH % 12.6 % (8-40); MCH 27.6 pg (25.7-33.7); MCHC 33.3 g/dl (32.0-35.9); MEAN CELL VOLUME 83.1 fl (80-96); MEAN PLT VOLUME 10.6 fl (7.5-11.1); MONO % 13.4 % (3.8-10.2); NEUT % 73.7 % (42.8-82.8); PLATELET COUNT 165 K/MM3 (134-434); RBC 5.11 M/mm3 (4.00-5.60); RDW 12.9 % (11.9-15.9)
[2020-10-28 19:13] LABS: INR 1.21 (0.83-1.09); PROTHROMBIN TIME (PATIENT) 14.8 SEC (9.7-13.0)
[2020-10-28 19:16] LABS: ACTIVATED PTT 24.3 SECONDS (25.2-36.5)
[2020-10-28] MEDS ORDERED: CEFTRIAXONE 1 GM/50 ML BAG ONE (19:17)
[2020-10-28 19:28] LABS: POTASSIUM 3.8 mmol/L (3.5-5.1)
[2020-10-28 19:29] LABS: CALCIUM 10.7 mg/dL (8.5-10.1)
[2020-10-28 19:30] LABS: BLOOD UREA NITROGEN 24.2 mg/dL (7-18)
[2020-10-28 19:32] LABS: BILIRUBIN,DIRECT 0.2 mg/dL (0.0-0.2)
[2020-10-28 19:33] LABS: CREATININE 0.9 mg/dL (0.55-1.3)
[2020-10-28 19:34] LABS: BILIRUBIN,TOTAL 0.8 mg/dL (0.2-1); TOT PROT 6.5 g/dl (6.4-8.2)
[2020-10-28] MEDS ORDERED: AZITHROMYCIN IVPB 500 MG/250 ML BAG IVPB ONE (19:39)
[2020-10-28] MEDS ORDERED: LACTATED RINGERS SOLUTION 1000 ML INFUS.BAG IV ONE (19:53)
[2020-10-28] MEDS ORDERED: DEXAMETHASONE SOD PHOSPHATE 4 MG/1 ML VIAL IVPUSH ONE (19:53)
[2020-10-28] MEDS ORDERED: DEXAMETHASONE SOD PHOSPHATE 10 MG/1 ML VIAL ONE (20:54)
[2020-10-28] MEDS ORDERED: ACETAMINOPHEN 325 MG TABLET (FP) PO PRN (22:01)
[2020-10-29] MEDS ORDERED: ALBUTEROL SO4 HFA INHALER IH PRN (01:06)
[2020-10-29] MEDS ORDERED: SODIUM CHLORIDE 1,000 ML IV SCH (01:30)
[2020-10-29] MEDS ORDERED: TAMSULOSIN HCL 0.4 MG CAP PO ONE (06:05)
[2020-10-29] MEDS: ZINC SULFATE 220 MG CAPSULE (FP) PO SCH (09:06)
[2020-10-29] MEDS: ENOXAPARIN NA (PORCINE) 40 MG/0.4 ML DISP.SYRIN SQ SCH (09:06)
[2020-10-29] MEDS: ASCORBIC ACID 500 MG TABLET (FP) PO SCH ×3 (09:06→22:28)
[2020-10-29] MEDS: TAMSULOSIN HCL 0.4 MG CAP PO SCH (09:06)
[2020-10-29] MEDS: CHOLECALCIFEROL (VIT D3) 1,000 UNIT (25 MCG) TABLET PO SCH (09:06)
[2020-10-29] MEDS: FAMOTIDINE 20 MG/50 ML IVPB 20 MG/50 ML MG IVPB SCH (09:07)
[2020-10-29] MEDS: DEXAMETHASONE SOD PHOSPHATE 4 MG/1 ML VIAL IVPUSH SCH (09:07)
[2020-10-29] MEDS ORDERED: CINACALCET HCL 30 MG TAB (FP) PO SCH (10:00)
[2020-10-29] MEDS ORDERED: AZITHROMYCIN IVPB 500 MG/250 ML BAG IVPB SCH (10:00)
[2020-10-29] MEDS ORDERED: cefTRIAXone SODIUM 1 GM VIAL ONE (13:00)
[2020-10-29] MEDS ORDERED: DEXTROSE 5%-WATER - 50 ML IVPB ONE (13:00)
[2020-10-29] MEDS: CEFTRIAXONE 1 GM in DEXTROSE 5%-WATER - 50 ML IVPB SCH (13:02)
[2020-10-29 15:25] LABS: EPI CELLS 4 /uL (0-25.1); HYALINE CASTS 1 /uL (0-3.1); URINE APPEARANCE CLEAR; URINE BACTERIA 77 /uL (0-1359); URINE BILIRUBIN 1+ (NEGATIVE); URINE COLOR DK YELLOW; URINE GLUCOSE (UA) NEGATIVE (NEGATIVE); URINE KETONE 1+ (NEGATIVE); URINE LEUK ESTERASE NEGATIVE (NEGATIVE); URINE NITRITE NEGATIVE (NEGATIVE); URINE PROTEIN TRACE (NEGATIVE); URINE RBC 241 /uL (0-23.9); URINE WBC 5 /uL (0-25.8)
[2020-10-29] MEDS ORDERED: REMDESIVIR 200 MG in SODIUM CHLORIDE 210 ML IVPB ONE (16:00)
[2020-10-29] MEDS ORDERED: PT OWN MED DRAWER 7, Y5N ONE (23:46)
[2020-10-30] MEDS ORDERED: PT OWN MED DRAWER 7, Y5N ONE ×2 (08:52→09:14)
[2020-10-30] MEDS ORDERED: cefTRIAXone SODIUM 1 GM VIAL ONE (08:52)
[2020-10-30] MEDS ORDERED: DEXTROSE 5%-WATER - 50 ML IVPB ONE (08:52)
[2020-10-30 08:54] LABS: BASO % 0.2 % (0-2.0); HEMATOCRIT 42.5 % (35.4-49); HEMOGLOBIN 14.2 GM/dL (11.7-16.9); LYMPH % 14.1 % (8-40); MCH 27.5 pg (25.7-33.7); MCHC 33.4 g/dl (32.0-35.9); MEAN CELL VOLUME 82.5 fl (80-96); MONO % 12.1 % (3.8-10.2); NEUT % 73.6 % (42.8-82.8); PLATELET COUNT 214 K/MM3 (134-434); RBC 5.15 M/mm3 (4.00-5.60); RDW 12.8 % (11.9-15.9); WHITE BLOOD COUNT 12.7 K/mm3 (4.0-10.0)
[2020-10-30] MEDS: CEFTRIAXONE 1 GM in DEXTROSE 5%-WATER - 50 ML IVPB SCH (09:09)
[2020-10-30] MEDS: CINACALCET HCL 30 MG TAB (FP) PO SCH (09:10)
[2020-10-30] MEDS: ASCORBIC ACID 500 MG TABLET (FP) PO SCH ×2 (09:10→22:26)
[2020-10-30] MEDS: DEXAMETHASONE SOD PHOSPHATE 4 MG/1 ML VIAL IVPUSH SCH (09:10)
[2020-10-30] MEDS: ZINC SULFATE 220 MG CAPSULE (FP) PO SCH (09:11)
[2020-10-30] MEDS: TAMSULOSIN HCL 0.4 MG CAP PO SCH (09:11)
[2020-10-30] MEDS: LOSARTAN POTASSIUM 50 MG TABLET PO SCH (09:11)
[2020-10-30] MEDS: CHOLECALCIFEROL (VIT D3) 1,000 UNIT (25 MCG) TABLET PO SCH (09:12)
[2020-10-30] MEDS: ENOXAPARIN NA (PORCINE) 40 MG/0.4 ML DISP.SYRIN SQ SCH (09:12)
[2020-10-30 09:19] LABS: POTASSIUM 3.1 mmol/L (3.5-5.1)
[2020-10-30 09:24] LABS: ALBUMIN 2.7 g/dl (3.4-5.0); BLOOD UREA NITROGEN 20.2 mg/dL (7-18); CALCIUM 10.2 mg/dL (8.5-10.1); MAGNESIUM 2.1 mg/dL (1.8-2.4)
[2020-10-30 09:27] LABS: CREATININE 0.7 mg/dL (0.55-1.3); PHOSPHOROUS 1.6 mg/dL (2.5-4.9)
[2020-10-30 09:28] LABS: BILIRUBIN,TOTAL 0.6 mg/dL (0.2-1)
[2020-10-30] MEDS: FAMOTIDINE 20 MG/50 ML IVPB 20 MG/50 ML MG IVPB SCH (11:45)
[2020-10-30] MEDS ORDERED: POTASSIUM CHLORIDE ORAL LIQUID 20 MEQ/15 ML PO ONE (12:33)
[2020-10-30] MEDS ORDERED: NAPH,MB-DB/K PH,MBDB POWDER PACKET PO ONE (12:33)
[2020-10-30] MEDS: AZITHROMYCIN IVPB 250 MG in DEXTROSE 5%-WATER - 250 ML IVPB SCH (13:52)
[2020-10-30] MEDS: REMDESIVIR 100 MG in SODIUM CHLORIDE 230 ML IVPB SCH (16:04)
[2020-10-30 16:54] VITALS: BMI 20.3
[2020-10-30] MEDS: ROSUVASTATIN CA 10 MG TABLET (FP) PO SCH (22:26)
[2020-10-31 09:00] LABS: BASO % 0.2 % (0-2.0); HEMOGLOBIN 14.3 GM/dL (11.7-16.9); LYMPH % 16.4 % (8-40); MCH 27.4 pg (25.7-33.7); MCHC 33.2 g/dl (32.0-35.9); MEAN CELL VOLUME 82.4 fl (80-96); MEAN PLT VOLUME 10.2 fl (7.5-11.1); MONO % 10.6 % (3.8-10.2); NEUT % 72.8 % (42.8-82.8); PLATELET COUNT 208 K/MM3 (134-434); RBC 5.22 M/mm3 (4.00-5.60); RDW 13.2 % (11.9-15.9); WHITE BLOOD COUNT 14.2 K/mm3 (4.0-10.0)
[2020-10-31 09:13] LABS: POTASSIUM 3.3 mmol/L (3.5-5.1)
[2020-10-31 09:20] LABS: BLOOD UREA NITROGEN 19.7 mg/dL (7-18); CALCIUM 9.8 mg/dL (8.5-10.1)
[2020-10-31 09:21] LABS: MAGNESIUM 1.8 mg/dL (1.8-2.4)
[2020-10-31 09:24] LABS: CREATININE 0.8 mg/dL (0.55-1.3)
[2020-10-31 09:25] LABS: BILIRUBIN,TOTAL 0.8 mg/dL (0.2-1); TOT PROT 6.4 g/dl (6.4-8.2)
[2020-10-31] MEDS ORDERED: PT OWN MED DRAWER 7, Y5N ONE (10:04)
[2020-10-31] MEDS ORDERED: cefTRIAXone SODIUM 1 GM VIAL ONE (10:04)
[2020-10-31] MEDS ORDERED: DEXTROSE 5%-WATER - 50 ML IVPB ONE (10:04)
[2020-10-31] MEDS: CEFTRIAXONE 1 GM in DEXTROSE 5%-WATER - 50 ML IVPB SCH ×2 (10:11→11:21)
[2020-10-31] MEDS: ASCORBIC ACID 500 MG TABLET (FP) PO SCH ×2 (10:19→21:58)
[2020-10-31] MEDS: CHOLECALCIFEROL (VIT D3) 1,000 UNIT (25 MCG) TABLET PO SCH (10:19)
[2020-10-31] MEDS: TAMSULOSIN HCL 0.4 MG CAP PO SCH (10:19)
[2020-10-31] MEDS: DEXAMETHASONE SOD PHOSPHATE 4 MG/1 ML VIAL IVPUSH SCH (10:20)
[2020-10-31] MEDS: FINASTERIDE 5 MG TABLET (FP) PO SCH (10:20)
[2020-10-31] MEDS: LOSARTAN POTASSIUM 50 MG TABLET PO SCH (10:21)
[2020-10-31] MEDS: CINACALCET HCL 30 MG TAB (FP) PO SCH (10:21)
[2020-10-31] MEDS: ENOXAPARIN NA (PORCINE) 40 MG/0.4 ML DISP.SYRIN SQ SCH (10:21)
[2020-10-31 11:07] LABS: PLATELET ESTIMATE NORMAL
[2020-10-31] MEDS ORDERED: POTASSIUM CHLORIDE ORAL LIQUID 20 MEQ/15 ML PO SCH (11:45)
[2020-10-31] MEDS: FAMOTIDINE 20 MG/50 ML IVPB 20 MG/50 ML MG IVPB SCH (12:40)
[2020-10-31] MEDS ORDERED: FAMOTIDINE 20 MG TABLET PO ONE (12:42)
[2020-10-31] MEDS: ZINC SULFATE 220 MG CAPSULE (FP) PO SCH (13:49)
[2020-10-31] MEDS: AZITHROMYCIN IVPB 250 MG in DEXTROSE 5%-WATER - 250 ML IVPB SCH (13:50)
[2020-10-31] MEDS: REMDESIVIR 100 MG in SODIUM CHLORIDE 230 ML IVPB SCH (15:49)
[2020-10-31] MEDS ORDERED: POTASSIUM CHLORIDE TABS 20 MEQ TABLET.ER (FP) PO ONE (20:00)
[2020-10-31] MEDS: ROSUVASTATIN CA 10 MG TABLET (FP) PO SCH (21:58)
[2020-10-31] MEDS: FAMOTIDINE 20 MG TABLET PO SCH (21:58)
[2020-11-01] MEDS ORDERED: LORazepam 2 MG/ML SDV VIAL IVPUSH ONE ×2 (03:38→22:25)
[2020-11-01 08:38] LABS: BASO % 0.1 % (0-2.0); HEMATOCRIT 43.2 % (35.4-49); HEMOGLOBIN 14.5 GM/dL (11.7-16.9); MCH 27.5 pg (25.7-33.7); MCHC 33.7 g/dl (32.0-35.9); MEAN CELL VOLUME 81.8 fl (80-96); MEAN PLT VOLUME 10.4 fl (7.5-11.1); MONO % 11.3 % (3.8-10.2); NEUT % 71.6 % (42.8-82.8); PLATELET COUNT 246 K/MM3 (134-434); RBC 5.28 M/mm3 (4.00-5.60); RDW 13.1 % (11.9-15.9); WHITE BLOOD COUNT 14.4 K/mm3 (4.0-10.0)
[2020-11-01 09:03] LABS: POTASSIUM 3.7 mmol/L (3.5-5.1)
[2020-11-01 09:12] LABS: BLOOD UREA NITROGEN 23.2 mg/dL (7-18); MAGNESIUM 1.9 mg/dL (1.8-2.4)
[2020-11-01 09:15] LABS: BILIRUBIN,TOTAL 0.6 mg/dL (0.2-1); CREATININE 0.9 mg/dL (0.55-1.3); PHOSPHOROUS 1.9 mg/dL (2.5-4.9); TOT PROT 6.6 g/dl (6.4-8.2)
[2020-11-01] MEDS ORDERED: DEXTROSE 5%-WATER - 50 ML IVPB ONE (11:10)
[2020-11-01] MEDS ORDERED: PT OWN MED DRAWER 7, Y5N ONE (11:10)
[2020-11-01] MEDS ORDERED: cefTRIAXone SODIUM 1 GM VIAL ONE (11:10)
[2020-11-01] MEDS: FINASTERIDE 5 MG TABLET (FP) PO SCH (11:12)
[2020-11-01] MEDS: ENOXAPARIN NA (PORCINE) 40 MG/0.4 ML DISP.SYRIN SQ SCH (11:12)
[2020-11-01] MEDS: ZINC SULFATE 220 MG CAPSULE (FP) PO SCH (11:12)
[2020-11-01] MEDS: DEXAMETHASONE 4 MG TABLET (FP) PO SCH (11:12)
[2020-11-01] MEDS: ASCORBIC ACID 500 MG TABLET (FP) PO SCH ×3 (11:12→22:56)
[2020-11-01] MEDS: LOSARTAN POTASSIUM 50 MG TABLET PO SCH (11:12)
[2020-11-01] MEDS: TAMSULOSIN HCL 0.4 MG CAP PO SCH (11:13)
[2020-11-01] MEDS: CHOLECALCIFEROL (VIT D3) 1,000 UNIT (25 MCG) TABLET PO SCH (11:13)
[2020-11-01] MEDS: CEFTRIAXONE 1 GM in DEXTROSE 5%-WATER - 50 ML IVPB SCH (11:13)
[2020-11-01] MEDS: FAMOTIDINE 20 MG TABLET PO SCH ×3 (11:13→22:55)
[2020-11-01] MEDS: CINACALCET HCL 30 MG TAB (FP) PO SCH (11:14)
[2020-11-01] MEDS ORDERED: POTASSIUM PHOSPHATE 30 MM in SODIUM CHLORIDE 500 ML IVPB ONE (11:15)
[2020-11-01] MEDS: AZITHROMYCIN IVPB 250 MG in DEXTROSE 5%-WATER - 250 ML IVPB SCH (12:30)
[2020-11-01] MEDS: REMDESIVIR 100 MG in SODIUM CHLORIDE 230 ML IVPB SCH (15:08)
[2020-11-01] MEDS: ROSUVASTATIN CA 10 MG TABLET (FP) PO SCH ×2 (21:56→22:56)
[2020-11-01] MEDS: APIXABAN 5 MG TABLET PO SCH (21:57)
[2020-11-02 08:41] LABS: BASO % 0.2 % (0-2.0); HEMATOCRIT 43.1 % (35.4-49); HEMOGLOBIN 14.5 GM/dL (11.7-16.9); LYMPH % 22.3 % (8-40); MCH 27.6 pg (25.7-33.7); MCHC 33.7 g/dl (32.0-35.9); MEAN CELL VOLUME 82.1 fl (80-96); MEAN PLT VOLUME 10.2 fl (7.5-11.1); MONO % 10.3 % (3.8-10.2); NEUT % 67.2 % (42.8-82.8); PLATELET COUNT 251 K/MM3 (134-434); RBC 5.25 M/mm3 (4.00-5.60); RDW 13.1 % (11.9-15.9); WHITE BLOOD COUNT 11.3 K/mm3 (4.0-10.0)
[2020-11-02 08:46] LABS: POTASSIUM 3.8 mmol/L (3.5-5.1)
[2020-11-02 08:56] LABS: CALCIUM 9.2 mg/dL (8.5-10.1)
[2020-11-02 08:58] LABS: BILIRUBIN,TOTAL 0.6 mg/dL (0.2-1); MAGNESIUM 1.9 mg/dL (1.8-2.4); TOT PROT 6.5 g/dl (6.4-8.2)
[2020-11-02 08:59] LABS: CREATININE 0.8 mg/dL (0.55-1.3); PHOSPHOROUS 2.9 mg/dL (2.5-4.9)
[2020-11-02] MEDS ORDERED: cefTRIAXone SODIUM 1 GM VIAL ONE (09:38)
[2020-11-02] MEDS ORDERED: DEXTROSE 5%-WATER - 50 ML IVPB ONE (09:38)
[2020-11-02] MEDS ORDERED: PT OWN MED DRAWER 7, Y5N ONE (09:38)
[2020-11-02] MEDS: CEFTRIAXONE 1 GM in DEXTROSE 5%-WATER - 50 ML IVPB SCH (09:49)
[2020-11-02] MEDS: DEXAMETHASONE 4 MG TABLET (FP) PO SCH (09:50)
[2020-11-02] MEDS: ASCORBIC ACID 500 MG TABLET (FP) PO SCH ×2 (09:51→22:00)
[2020-11-02] MEDS: CHOLECALCIFEROL (VIT D3) 1,000 UNIT (25 MCG) TABLET PO SCH (09:52)
[2020-11-02] MEDS: TAMSULOSIN HCL 0.4 MG CAP PO SCH (09:53)
[2020-11-02] MEDS: LOSARTAN POTASSIUM 50 MG TABLET PO SCH (09:53)
[2020-11-02] MEDS: FINASTERIDE 5 MG TABLET (FP) PO SCH (09:54)
[2020-11-02] MEDS: CINACALCET HCL 30 MG TAB (FP) PO SCH (09:55)
[2020-11-02] MEDS: APIXABAN 5 MG TABLET PO SCH ×2 (09:56→22:00)
[2020-11-02] MEDS: ZINC SULFATE 220 MG CAPSULE (FP) PO SCH (09:56)
[2020-11-02] MEDS: FAMOTIDINE 20 MG TABLET PO SCH ×2 (09:56→22:00)
[2020-11-02] MEDS ORDERED: SODIUM CHLORIDE NASAL SPRAY 44 ML BOTTLE NS PRN (13:45)
[2020-11-02] MEDS: REMDESIVIR 100 MG in SODIUM CHLORIDE 230 ML IVPB SCH (15:15)
[2020-11-02] MEDS: ROSUVASTATIN CA 10 MG TABLET (FP) PO SCH (22:00)
[2020-11-03] MEDS: ZINC SULFATE 220 MG CAPSULE (FP) PO SCH (10:09)
[2020-11-03] MEDS: DEXAMETHASONE 4 MG TABLET (FP) PO SCH (10:09)
[2020-11-03] MEDS: TAMSULOSIN HCL 0.4 MG CAP PO SCH (10:09)
[2020-11-03] MEDS: CINACALCET HCL 30 MG TAB (FP) PO SCH (10:10)
[2020-11-03] MEDS: LOSARTAN POTASSIUM 50 MG TABLET PO SCH (10:10)
[2020-11-03] MEDS: FINASTERIDE 5 MG TABLET (FP) PO SCH (10:10)
[2020-11-03] MEDS: FAMOTIDINE 20 MG TABLET PO SCH ×2 (10:10→22:15)
[2020-11-03] MEDS: CHOLECALCIFEROL (VIT D3) 1,000 UNIT (25 MCG) TABLET PO SCH (10:10)
[2020-11-03] MEDS: ASCORBIC ACID 500 MG TABLET (FP) PO SCH ×2 (10:10→22:16)
[2020-11-03] MEDS: APIXABAN 5 MG TABLET PO SCH (10:10)
[2020-11-03] MEDS: MIRTAZAPINE 15 MG TABLET (FP) PO SCH ×2 (22:14→22:16)
[2020-11-03] MEDS: ROSUVASTATIN CA 10 MG TABLET (FP) PO SCH (22:14)
[2020-11-04 09:45] LABS: BASO % 0.1 % (0-2.0); HEMATOCRIT 45.3 % (35.4-49); HEMOGLOBIN 14.9 GM/dL (11.7-16.9); LYMPH % 18.2 % (8-40); MCH 27.4 pg (25.7-33.7); MCHC 32.9 g/dl (32.0-35.9); MEAN CELL VOLUME 83.4 fl (80-96); MEAN PLT VOLUME 10.1 fl (7.5-11.1); MONO % 9.9 % (3.8-10.2); NEUT % 71.8 % (42.8-82.8); PLATELET COUNT 271 K/MM3 (134-434); RBC 5.44 M/mm3 (4.00-5.60); RDW 13.5 % (11.9-15.9); WHITE BLOOD COUNT 13.5 K/mm3 (4.0-10.0)
[2020-11-04 10:11] LABS: CHLORIDE 106 mmol/L (98-107); POTASSIUM 3.9 mmol/L (3.5-5.1); SODIUM 142 mmol/L (136-145)
[2020-11-04 10:37] LABS: CREATININE 1.1 mg/dL (0.55-1.3)
[2020-11-04 10:38] LABS: BILIRUBIN,TOTAL 0.8 mg/dL (0.2-1); LDH 302 U/L (87-246); TOT PROT 6.4 g/dl (6.4-8.2)
[2020-11-04 10:39] LABS: ALBUMIN 3.1 g/dl (3.4-5.0); ALK PHOS 86 U/L (45-117); ANION GAP 10 MMOL/L (8-16); BLOOD UREA NITROGEN 28.9 mg/dL (7-18); CALCIUM 9.7 mg/dL (8.5-10.1); CO2 27 mmol/L (21-32); GLUCOSE,RANDOM 102 mg/dL (74-106)
[2020-11-04 10:40] LABS: MAGNESIUM 2.2 mg/dL (1.8-2.4); PHOSPHOROUS 2.7 mg/dL (2.5-4.9); SGPT/ALT 51 U/L (13-61)
[2020-11-04 10:41] LABS: SGOT/AST 28 U/L (15-37)
[2020-11-04] MEDS: FINASTERIDE 5 MG TABLET (FP) PO SCH (11:00)
[2020-11-04] MEDS: ENOXAPARIN NA (PORCINE) 40 MG/0.4 ML DISP.SYRIN SQ SCH (11:00)
[2020-11-04] MEDS: TAMSULOSIN HCL 0.4 MG CAP PO SCH (11:01)
[2020-11-04] MEDS: ZINC SULFATE 220 MG CAPSULE (FP) PO SCH (11:01)
[2020-11-04] MEDS: DEXAMETHASONE 4 MG TABLET (FP) PO SCH (11:01)
[2020-11-04] MEDS: MULTIVITAMINS THER W-MINERALS COMBO TABLET (FP) PO SCH (11:01)
[2020-11-04] MEDS: LOSARTAN POTASSIUM 50 MG TABLET PO SCH (11:01)
[2020-11-04] MEDS: CHOLECALCIFEROL (VIT D3) 1,000 UNIT (25 MCG) TABLET PO SCH (11:01)
[2020-11-04] MEDS: ASCORBIC ACID 500 MG TABLET (FP) PO SCH ×2 (11:02→21:49)
[2020-11-04] MEDS: CINACALCET HCL 30 MG TAB (FP) PO SCH (11:02)
[2020-11-04] MEDS: FAMOTIDINE 20 MG TABLET PO SCH ×2 (11:02→21:48)
[2020-11-04] MEDS ORDERED: LIDOCAINE HCL 2% JELLY 10 ML CARTRIDGE UR PRN (19:03)
[2020-11-04] MEDS: MIRTAZAPINE 15 MG TABLET (FP) PO SCH (21:49)
[2020-11-04] MEDS: ROSUVASTATIN CA 10 MG TABLET (FP) PO SCH (21:50)
[2020-11-05 09:22] LABS: BASO % 0.2 % (0-2.0); HEMATOCRIT 46.9 % (35.4-49); HEMOGLOBIN 15.7 GM/dL (11.7-16.9); LYMPH % 18.7 % (8-40); MCH 27.7 pg (25.7-33.7); MCHC 33.4 g/dl (32.0-35.9); MEAN CELL VOLUME 82.9 fl (80-96); MEAN PLT VOLUME 10.2 fl (7.5-11.1); NEUT % 71.1 % (42.8-82.8); PLATELET COUNT 286 K/MM3 (134-434); RBC 5.66 M/mm3 (4.00-5.60); RDW 13.3 % (11.9-15.9); WHITE BLOOD COUNT 13.5 K/mm3 (4.0-10.0)
[2020-11-05 09:49] LABS: POTASSIUM 4.2 mmol/L (3.5-5.1)
[2020-11-05 10:17] LABS: ALBUMIN 3.4 g/dl (3.4-5.0); CALCIUM 10.1 mg/dL (8.5-10.1)
[2020-11-05 10:18] LABS: BLOOD UREA NITROGEN 35.4 mg/dL (7-18); MAGNESIUM 2.2 mg/dL (1.8-2.4)
[2020-11-05 10:21] LABS: PHOSPHOROUS 2.8 mg/dL (2.5-4.9)
[2020-11-05 10:22] LABS: TOT PROT 6.8 g/dl (6.4-8.2)
[2020-11-05] MEDS ORDERED: PT OWN MED DRAWER 7, Y5N ONE (10:29)
[2020-11-05] MEDS: ZINC SULFATE 220 MG CAPSULE (FP) PO SCH (10:31)
[2020-11-05] MEDS: DEXAMETHASONE 4 MG TABLET (FP) PO SCH (10:31)
[2020-11-05] MEDS: ENOXAPARIN NA (PORCINE) 40 MG/0.4 ML DISP.SYRIN SQ SCH (10:31)
[2020-11-05] MEDS: CHOLECALCIFEROL (VIT D3) 1,000 UNIT (25 MCG) TABLET PO SCH (10:32)
[2020-11-05] MEDS: FINASTERIDE 5 MG TABLET (FP) PO SCH (10:32)
[2020-11-05] MEDS: TAMSULOSIN HCL 0.4 MG CAP PO SCH (10:33)
[2020-11-05] MEDS: MULTIVITAMINS THER W-MINERALS COMBO TABLET (FP) PO SCH (10:33)
[2020-11-05] MEDS: LOSARTAN POTASSIUM 50 MG TABLET PO SCH (10:33)
[2020-11-05] MEDS: ASCORBIC ACID 500 MG TABLET (FP) PO SCH ×2 (10:33→22:26)
[2020-11-05] MEDS: CINACALCET HCL 30 MG TAB (FP) PO SCH (10:34)
[2020-11-05] MEDS: FAMOTIDINE 20 MG TABLET PO SCH ×2 (10:34→22:27)
[2020-11-05] MEDS: MIRTAZAPINE 15 MG TABLET (FP) PO SCH (22:26)
[2020-11-05] MEDS: ROSUVASTATIN CA 10 MG TABLET (FP) PO SCH (22:26)
[2020-11-06 07:49] LABS: BASO % 0.2 % (0-2.0); HEMOGLOBIN 14.4 GM/dL (11.7-16.9); LYMPH % 12.4 % (8-40); MCH 27.7 pg (25.7-33.7); MCHC 33.6 g/dl (32.0-35.9); MEAN CELL VOLUME 82.5 fl (80-96); MONO % 7.8 % (3.8-10.2); NEUT % 79.6 % (42.8-82.8); PLATELET COUNT 243 K/MM3 (134-434); RBC 5.22 M/mm3 (4.00-5.60); RDW 13.4 % (11.9-15.9); WHITE BLOOD COUNT 18.9 K/mm3 (4.0-10.0)
[2020-11-06 08:37] LABS: ALBUMIN 2.9 g/dl (3.4-5.0); BLOOD UREA NITROGEN 45.6 mg/dL (7-18); CALCIUM 9.4 mg/dL (8.5-10.1)
[2020-11-06 08:40] LABS: CREATININE 1.1 mg/dL (0.55-1.3); PHOSPHOROUS 2.7 mg/dL (2.5-4.9)
[2020-11-06] MEDS ORDERED: PT OWN MED DRAWER 7, Y5N ONE (10:21)
[2020-11-06] MEDS: TAMSULOSIN HCL 0.4 MG CAP PO SCH ×3 (10:28→18:23)
[2020-11-06] MEDS: ZINC SULFATE 220 MG CAPSULE (FP) PO SCH ×3 (10:29→18:24)
[2020-11-06] MEDS: LOSARTAN POTASSIUM 50 MG TABLET PO SCH (10:29)
[2020-11-06] MEDS: CHOLECALCIFEROL (VIT D3) 1,000 UNIT (25 MCG) TABLET PO SCH ×3 (10:29→18:23)
[2020-11-06] MEDS: ENOXAPARIN NA (PORCINE) 40 MG/0.4 ML DISP.SYRIN SQ SCH (10:29)
[2020-11-06] MEDS: DEXAMETHASONE 4 MG TABLET (FP) PO SCH ×3 (10:29→18:24)
[2020-11-06] MEDS: MULTIVITAMINS THER W-MINERALS COMBO TABLET (FP) PO SCH ×3 (10:29→18:23)
[2020-11-06] MEDS: ASCORBIC ACID 500 MG TABLET (FP) PO SCH ×4 (10:29→22:08)
[2020-11-06] MEDS: FINASTERIDE 5 MG TABLET (FP) PO SCH ×3 (10:29→18:24)
[2020-11-06] MEDS: CINACALCET HCL 30 MG TAB (FP) PO SCH ×3 (10:30→18:24)
[2020-11-06] MEDS: FAMOTIDINE 20 MG TABLET PO SCH ×3 (10:30→22:09)
[2020-11-06] MEDS: MIRTAZAPINE 15 MG TABLET (FP) PO SCH (22:08)
[2020-11-06] MEDS: PRAMIPEXOLE DIHYDROCHLORIDE 0.125 MG TABLET PO SCH (22:08)
[2020-11-06] MEDS: ROSUVASTATIN CA 10 MG TABLET (FP) PO SCH (22:08)
[2020-11-07] MEDS ORDERED: PT OWN MED DRAWER 7, Y5N ONE ×2 (08:18→21:50)
[2020-11-07] MEDS: TAMSULOSIN HCL 0.4 MG CAP PO SCH (09:03)
[2020-11-07] MEDS: MULTIVITAMINS THER W-MINERALS COMBO TABLET (FP) PO SCH (09:04)
[2020-11-07] MEDS: CHOLECALCIFEROL (VIT D3) 1,000 UNIT (25 MCG) TABLET PO SCH (09:04)
[2020-11-07] MEDS: ASCORBIC ACID 500 MG TABLET (FP) PO SCH ×2 (09:04→21:45)
[2020-11-07] MEDS: FINASTERIDE 5 MG TABLET (FP) PO SCH (09:04)
[2020-11-07] MEDS: DEXAMETHASONE 4 MG TABLET (FP) PO SCH (09:04)
[2020-11-07] MEDS: ENOXAPARIN NA (PORCINE) 40 MG/0.4 ML DISP.SYRIN SQ SCH (09:04)
[2020-11-07] MEDS: ZINC SULFATE 220 MG CAPSULE (FP) PO SCH (09:05)
[2020-11-07] MEDS: FAMOTIDINE 20 MG TABLET PO SCH ×2 (09:05→21:46)
[2020-11-07] MEDS: CINACALCET HCL 30 MG TAB (FP) PO SCH (09:06)
[2020-11-07] MEDS: LOSARTAN POTASSIUM 50 MG TABLET PO SCH (09:15)
[2020-11-07] MEDS: ROSUVASTATIN CA 10 MG TABLET (FP) PO SCH (21:45)
[2020-11-07] MEDS: MIRTAZAPINE 15 MG TABLET (FP) PO SCH (21:45)
[2020-11-07] MEDS: PRAMIPEXOLE DIHYDROCHLORIDE 0.125 MG TABLET PO SCH (21:50)
[2020-11-08] MEDS: TAMSULOSIN HCL 0.4 MG CAP PO SCH (08:48)
[2020-11-08] MEDS: MULTIVITAMINS THER W-MINERALS COMBO TABLET (FP) PO SCH (09:00)
[2020-11-08] MEDS: DEXAMETHASONE 4 MG TABLET (FP) PO SCH (09:01)
[2020-11-08] MEDS: ZINC SULFATE 220 MG CAPSULE (FP) PO SCH (09:01)
[2020-11-08] MEDS: CHOLECALCIFEROL (VIT D3) 1,000 UNIT (25 MCG) TABLET PO SCH (09:01)
[2020-11-08] MEDS: FINASTERIDE 5 MG TABLET (FP) PO SCH (09:02)
[2020-11-08] MEDS: ENOXAPARIN NA (PORCINE) 40 MG/0.4 ML DISP.SYRIN SQ SCH (09:02)
[2020-11-08] MEDS: FAMOTIDINE 20 MG TABLET PO SCH ×2 (09:04→21:15)
[2020-11-08] MEDS: LOSARTAN POTASSIUM 50 MG TABLET PO SCH (09:04)
[2020-11-08] MEDS: CINACALCET HCL 30 MG TAB (FP) PO SCH (09:06)
[2020-11-08] MEDS: ASCORBIC ACID 500 MG TABLET (FP) PO SCH ×2 (09:21→21:14)
[2020-11-08] MEDS ORDERED: PT OWN MED DRAWER 7, Y5N ONE (20:43)
[2020-11-08] MEDS: ROSUVASTATIN CA 10 MG TABLET (FP) PO SCH (21:14)
[2020-11-08] MEDS: PRAMIPEXOLE DIHYDROCHLORIDE 0.125 MG TABLET PO SCH (21:14)
[2020-11-08] MEDS: MIRTAZAPINE 15 MG TABLET (FP) PO SCH (21:15)
[2020-11-09] MEDS ORDERED: MELATONIN 5 MG TABLETS PO ONE (00:45)
[2020-11-09] MEDS ORDERED: HALOPERIDOL LACTATE 5 MG/ML IM ONE (04:47)
[2020-11-09 08:32] LABS: BASO % 0.1 % (0-2.0); EOS % 0.1 % (0-4.5); HEMATOCRIT 38.5 % (35.4-49); HEMOGLOBIN 12.7 GM/dL (11.7-16.9); LYMPH % 11.2 % (8-40); MCH 27.5 pg (25.7-33.7); MCHC 33.1 g/dl (32.0-35.9); MEAN CELL VOLUME 83.1 fl (80-96); MEAN PLT VOLUME 10.5 fl (7.5-11.1); MONO % 7.8 % (3.8-10.2); NEUT % 80.8 % (42.8-82.8); PLATELET COUNT 179 K/MM3 (134-434); RBC 4.63 M/mm3 (4.00-5.60); RDW 13.3 % (11.9-15.9)
[2020-11-09 08:59] LABS: POTASSIUM 4.1 mmol/L (3.5-5.1)
[2020-11-09 09:03] LABS: ALBUMIN 2.7 g/dl (3.4-5.0); BLOOD UREA NITROGEN 32.3 mg/dL (7-18); CALCIUM 9.6 mg/dL (8.5-10.1)
[2020-11-09 09:06] LABS: PHOSPHOROUS 2.4 mg/dL (2.5-4.9)
[2020-11-09] MEDS ORDERED: PT OWN MED DRAWER 7, Y5N ONE ×2 (11:02→20:06)
[2020-11-09] MEDS ORDERED: SODIUM PHOSPHATE - 15 MM in SODIUM CHLORIDE 250 ML IVPB ONE (16:11)
[2020-11-09] MEDS: TAMSULOSIN HCL 0.4 MG CAP PO SCH ×2 (18:28→18:40)
[2020-11-09] MEDS: LOSARTAN POTASSIUM 50 MG TABLET PO SCH ×2 (18:28→18:39)
[2020-11-09] MEDS: ENOXAPARIN NA (PORCINE) 40 MG/0.4 ML DISP.SYRIN SQ SCH ×2 (18:28→18:36)
[2020-11-09] MEDS: FAMOTIDINE 20 MG TABLET PO SCH ×2 (18:29→21:37)
[2020-11-09] MEDS: ASCORBIC ACID 500 MG TABLET (FP) PO SCH ×2 (18:29→21:36)
[2020-11-09] MEDS: ZINC SULFATE 220 MG CAPSULE (FP) PO SCH ×2 (18:29→18:41)
[2020-11-09] MEDS: MULTIVITAMINS THER W-MINERALS COMBO TABLET (FP) PO SCH ×2 (18:29→18:41)
[2020-11-09] MEDS: FINASTERIDE 5 MG TABLET (FP) PO SCH ×2 (18:29→18:41)
[2020-11-09] MEDS: CHOLECALCIFEROL (VIT D3) 1,000 UNIT (25 MCG) TABLET PO SCH ×2 (18:29→18:38)
[2020-11-09] MEDS: CINACALCET HCL 30 MG TAB (FP) PO SCH ×2 (18:29→18:38)
[2020-11-09] MEDS: DEXAMETHASONE 4 MG TABLET (FP) PO SCH (18:31)
[2020-11-09] MEDS: MIRTAZAPINE 15 MG TABLET (FP) PO SCH (21:36)
[2020-11-09] MEDS: ROSUVASTATIN CA 10 MG TABLET (FP) PO SCH (21:36)
[2020-11-09] MEDS: PRAMIPEXOLE DIHYDROCHLORIDE 0.125 MG TABLET PO SCH (21:36)
[2020-11-10 09:29] LABS: BASO % 0.4 % (0-2.0); EOS % 1.2 % (0-4.5); HEMATOCRIT 40.1 % (35.4-49); HEMOGLOBIN 13.3 GM/dL (11.7-16.9); LYMPH % 22.5 % (8-40); MCH 27.5 pg (25.7-33.7); MCHC 33.1 g/dl (32.0-35.9); MEAN CELL VOLUME 82.9 fl (80-96); MEAN PLT VOLUME 10.3 fl (7.5-11.1); MONO % 5.4 % (3.8-10.2); NEUT % 70.5 % (42.8-82.8); PLATELET COUNT 184 K/MM3 (134-434); RBC 4.84 M/mm3 (4.00-5.60); RDW 13.8 % (11.9-15.9)
[2020-11-10 09:51] LABS: CALCIUM 9.3 mg/dL (8.5-10.1)
[2020-11-10 09:52] LABS: ALBUMIN 2.8 g/dl (3.4-5.0); BLOOD UREA NITROGEN 27.3 mg/dL (7-18)
[2020-11-10 09:55] LABS: PHOSPHOROUS 2.7 mg/dL (2.5-4.9)
[2020-11-10 09:56] LABS: BILIRUBIN,TOTAL 0.8 mg/dL (0.2-1)
[2020-11-10 09:57] LABS: TOT PROT 6.1 g/dl (6.4-8.2)
[2020-11-10] MEDS: LOSARTAN POTASSIUM 50 MG TABLET PO SCH (10:06)
[2020-11-10] MEDS: ENOXAPARIN NA (PORCINE) 40 MG/0.4 ML DISP.SYRIN SQ SCH ×2 (12:00→12:25)
[2020-11-10] MEDS: MULTIVITAMINS THER W-MINERALS COMBO TABLET (FP) PO SCH ×2 (12:00→12:26)
[2020-11-10] MEDS: TAMSULOSIN HCL 0.4 MG CAP PO SCH ×2 (12:00→12:25)
[2020-11-10] MEDS: FAMOTIDINE 20 MG TABLET PO SCH ×3 (12:00→21:03)
[2020-11-10] MEDS: FINASTERIDE 5 MG TABLET (FP) PO SCH ×2 (12:01→12:25)
[2020-11-10] MEDS: CINACALCET HCL 30 MG TAB (FP) PO SCH ×2 (12:01→12:25)
[2020-11-10] MEDS: ZINC SULFATE 220 MG CAPSULE (FP) PO SCH ×2 (12:01→12:25)
[2020-11-10] MEDS: CHOLECALCIFEROL (VIT D3) 1,000 UNIT (25 MCG) TABLET PO SCH ×2 (12:02→12:26)
[2020-11-10] MEDS: ASCORBIC ACID 500 MG TABLET (FP) PO SCH ×2 (12:22→21:03)
[2020-11-10] MEDS ORDERED: MORPHINE SULFATE 2 MG/ML VIAL IVPUSH ONE (13:30)
[2020-11-10] MEDS ORDERED: HALOPERIDOL LACTATE 5 MG/ML IM ONE (13:50)
[2020-11-10] MEDS ORDERED: HALOPERIDOL LACTATE 5 MG/ML IM PRN (17:33)
[2020-11-10] MEDS: ROSUVASTATIN CA 10 MG TABLET (FP) PO SCH (21:03)
[2020-11-10] MEDS: MELATONIN 5 MG TABLETS PO PRN (21:04)
[2020-11-10] MEDS: MIRTAZAPINE 15 MG TABLET (FP) PO SCH (21:04)
[2020-11-10] MEDS: HALOPERIDOL 2 MG TABLET PO SCH (21:09)
[2020-11-11] MEDS: TAMSULOSIN HCL 0.4 MG CAP PO SCH (08:27)
[2020-11-11 09:01] LABS: BASO % 0.2 % (0-2.0); EOS % 1.3 % (0-4.5); HEMATOCRIT 38.6 % (35.4-49); HEMOGLOBIN 12.9 GM/dL (11.7-16.9); LYMPH % 20.7 % (8-40); MCH 27.7 pg (25.7-33.7); MCHC 33.4 g/dl (32.0-35.9); MEAN CELL VOLUME 82.7 fl (80-96); MEAN PLT VOLUME 10.4 fl (7.5-11.1); MONO % 7.9 % (3.8-10.2); NEUT % 69.9 % (42.8-82.8); PLATELET COUNT 173 K/MM3 (134-434); RBC 4.67 M/mm3 (4.00-5.60); RDW 13.4 % (11.9-15.9); WHITE BLOOD COUNT 12.9 K/mm3 (4.0-10.0)
[2020-11-11 09:28] LABS: POTASSIUM 4.5 mmol/L (3.5-5.1)
[2020-11-11 09:40] LABS: ALBUMIN 2.8 g/dl (3.4-5.0); BLOOD UREA NITROGEN 21.5 mg/dL (7-18)
[2020-11-11 09:42] LABS: PHOSPHOROUS 2.2 mg/dL (2.5-4.9)
[2020-11-11 09:43] LABS: CALCIUM 9.8 mg/dL (8.5-10.1); CREATININE 0.9 mg/dL (0.55-1.3)
[2020-11-11 09:44] LABS: BILIRUBIN,TOTAL 0.9 mg/dL (0.2-1)
[2020-11-11] MEDS: LOSARTAN POTASSIUM 50 MG TABLET PO SCH (10:05)
[2020-11-11] MEDS: HALOPERIDOL 2 MG TABLET PO SCH ×2 (10:05→21:36)
[2020-11-11] MEDS: CINACALCET HCL 30 MG TAB (FP) PO SCH (10:06)
[2020-11-11] MEDS: FINASTERIDE 5 MG TABLET (FP) PO SCH (10:06)
[2020-11-11] MEDS: ZINC SULFATE 220 MG CAPSULE (FP) PO SCH (10:06)
[2020-11-11] MEDS: FAMOTIDINE 20 MG TABLET PO SCH ×2 (10:06→21:34)
[2020-11-11] MEDS: MULTIVITAMINS THER W-MINERALS COMBO TABLET (FP) PO SCH (10:07)
[2020-11-11] MEDS: CHOLECALCIFEROL (VIT D3) 1,000 UNIT (25 MCG) TABLET PO SCH (10:07)
[2020-11-11] MEDS: ENOXAPARIN NA (PORCINE) 40 MG/0.4 ML DISP.SYRIN SQ SCH (10:07)
[2020-11-11 10:18] LABS: ANISOCYTOSIS 0; MACROCYTOSIS 0; PLATELET ESTIMATE NORMAL
[2020-11-11] MEDS ORDERED: PT OWN MED DRAWER 7, Y5N ONE (11:36)
[2020-11-11] MEDS: ASCORBIC ACID 500 MG TABLET (FP) PO SCH ×2 (11:41→21:40)
[2020-11-11] MEDS: MELATONIN 5 MG TABLETS PO PRN (21:33)
[2020-11-11] MEDS: NAPH,MB-DB/K PH,MBDB POWDER PACKET PO SCH (21:34)
[2020-11-11] MEDS: MIRTAZAPINE 15 MG TABLET (FP) PO SCH (21:35)
[2020-11-11] MEDS: ROSUVASTATIN CA 10 MG TABLET (FP) PO SCH (21:35)
[2020-11-12 09:10] LABS: BASO % 0.7 % (0-2.0); EOS % 1.4 % (0-4.5); HEMATOCRIT 37.4 % (35.4-49); HEMOGLOBIN 12.4 GM/dL (11.7-16.9); LYMPH % 16.7 % (8-40); MCH 27.7 pg (25.7-33.7); MCHC 33.1 g/dl (32.0-35.9); MEAN CELL VOLUME 83.9 fl (80-96); MONO % 7.5 % (3.8-10.2); NEUT % 73.7 % (42.8-82.8); PLATELET COUNT 135 K/MM3 (134-434); RBC 4.45 M/mm3 (4.00-5.60); RDW 13.3 % (11.9-15.9); WHITE BLOOD COUNT 14.8 K/mm3 (4.0-10.0)
[2020-11-12 09:41] LABS: POTASSIUM 4.3 mmol/L (3.5-5.1)
[2020-11-12] MEDS ORDERED: PT OWN MED DRAWER 7, Y5N ONE (09:54)
[2020-11-12 09:57] LABS: CREATININE 0.9 mg/dL (0.55-1.3)
[2020-11-12 10:00] LABS: BILIRUBIN,TOTAL 0.8 mg/dL (0.2-1)
[2020-11-12 10:02] LABS: BLOOD UREA NITROGEN 25.3 mg/dL (7-18)
[2020-11-12 10:03] LABS: CALCIUM 9.5 mg/dL (8.5-10.1)
[2020-11-12 10:06] LABS: ALBUMIN 2.8 g/dl (3.4-5.0)
[2020-11-12] MEDS: TAMSULOSIN HCL 0.4 MG CAP PO SCH (10:06)
[2020-11-12] MEDS: LOSARTAN POTASSIUM 50 MG TABLET PO SCH (10:06)
[2020-11-12] MEDS: ASCORBIC ACID 500 MG TABLET (FP) PO SCH ×2 (10:06→22:17)
[2020-11-12] MEDS: FINASTERIDE 5 MG TABLET (FP) PO SCH (10:06)
[2020-11-12] MEDS: ZINC SULFATE 220 MG CAPSULE (FP) PO SCH (10:07)
[2020-11-12] MEDS: NAPH,MB-DB/K PH,MBDB POWDER PACKET PO SCH (10:07)
[2020-11-12] MEDS: CHOLECALCIFEROL (VIT D3) 1,000 UNIT (25 MCG) TABLET PO SCH (10:07)
[2020-11-12] MEDS: MULTIVITAMINS THER W-MINERALS COMBO TABLET (FP) PO SCH (10:07)
[2020-11-12] MEDS: CINACALCET HCL 30 MG TAB (FP) PO SCH (10:08)
[2020-11-12] MEDS: FAMOTIDINE 20 MG TABLET PO SCH ×2 (10:08→22:16)
[2020-11-12] MEDS: HALOPERIDOL 2 MG TABLET PO SCH ×2 (10:08→22:17)
[2020-11-12] MEDS: ENOXAPARIN NA (PORCINE) 40 MG/0.4 ML DISP.SYRIN SQ SCH (10:08)
[2020-11-12] MEDS: MIRTAZAPINE 15 MG TABLET (FP) PO SCH (22:15)
[2020-11-12] MEDS: ROSUVASTATIN CA 10 MG TABLET (FP) PO SCH (22:15)
[2020-11-13] MEDS ORDERED: PT OWN MED DRAWER 7, Y5N ONE (09:40)
[2020-11-13] MEDS: ZINC SULFATE 220 MG CAPSULE (FP) PO SCH (09:51)
[2020-11-13] MEDS: CINACALCET HCL 30 MG TAB (FP) PO SCH (09:51)
[2020-11-13] MEDS: MULTIVITAMINS THER W-MINERALS COMBO TABLET (FP) PO SCH (09:51)
[2020-11-13] MEDS: ASCORBIC ACID 500 MG TABLET (FP) PO SCH (09:51)
[2020-11-13] MEDS: FINASTERIDE 5 MG TABLET (FP) PO SCH (09:51)
[2020-11-13] MEDS: TAMSULOSIN HCL 0.4 MG CAP PO SCH (09:51)
[2020-11-13] MEDS: CHOLECALCIFEROL (VIT D3) 1,000 UNIT (25 MCG) TABLET PO SCH (09:52)
[2020-11-13] MEDS: HALOPERIDOL 2 MG TABLET PO SCH ×2 (09:52→21:54)
[2020-11-13] MEDS: FAMOTIDINE 20 MG TABLET PO SCH ×2 (09:52→21:53)
[2020-11-13] MEDS: ENOXAPARIN NA (PORCINE) 40 MG/0.4 ML DISP.SYRIN SQ SCH (09:52)
[2020-11-13] MEDS: LOSARTAN POTASSIUM 50 MG TABLET PO SCH (09:52)
[2020-11-13] MEDS: MIRTAZAPINE 15 MG TABLET (FP) PO SCH (21:52)
[2020-11-13] MEDS: MELATONIN 5 MG TABLETS PO PRN (21:53)
[2020-11-13] MEDS: ROSUVASTATIN CA 10 MG TABLET (FP) PO SCH (21:53)
[2020-11-14] MEDS ORDERED: PT OWN MED DRAWER 7, Y5N ONE ×2 (08:56→09:36)
[2020-11-14] MEDS: TAMSULOSIN HCL 0.4 MG CAP PO SCH (08:59)
[2020-11-14] MEDS: LOSARTAN POTASSIUM 50 MG TABLET PO SCH (09:00)
[2020-11-14] MEDS: FINASTERIDE 5 MG TABLET (FP) PO SCH (09:01)
[2020-11-14] MEDS: FAMOTIDINE 20 MG TABLET PO SCH ×2 (09:01→21:13)
[2020-11-14] MEDS: CHOLECALCIFEROL (VIT D3) 1,000 UNIT (25 MCG) TABLET PO SCH (09:02)
[2020-11-14] MEDS: ENOXAPARIN NA (PORCINE) 40 MG/0.4 ML DISP.SYRIN SQ SCH (09:02)
[2020-11-14] MEDS: MULTIVITAMINS THER W-MINERALS COMBO TABLET (FP) PO SCH (09:03)
[2020-11-14] MEDS: CINACALCET HCL 30 MG TAB (FP) PO SCH (09:40)
[2020-11-14] MEDS: HALOPERIDOL 2 MG TABLET PO SCH ×2 (09:40→21:13)
[2020-11-14] MEDS: ROSUVASTATIN CA 10 MG TABLET (FP) PO SCH (21:13)
[2020-11-14] MEDS: MIRTAZAPINE 15 MG TABLET (FP) PO SCH (21:13)
[2020-11-14] MEDS: MELATONIN 5 MG TABLETS PO PRN (21:13)
[2020-11-15] MEDS: TAMSULOSIN HCL 0.4 MG CAP PO SCH (08:56)
[2020-11-15] MEDS ORDERED: PT OWN MED DRAWER 7, Y5N ONE (09:23)
[2020-11-15] MEDS: LOSARTAN POTASSIUM 50 MG TABLET PO SCH (09:27)
[2020-11-15] MEDS: FINASTERIDE 5 MG TABLET (FP) PO SCH (09:28)
[2020-11-15] MEDS: HALOPERIDOL 2 MG TABLET PO SCH ×2 (09:28→21:34)
[2020-11-15] MEDS: FAMOTIDINE 20 MG TABLET PO SCH ×2 (09:28→21:32)
[2020-11-15] MEDS: CINACALCET HCL 30 MG TAB (FP) PO SCH (09:29)
[2020-11-15] MEDS: CHOLECALCIFEROL (VIT D3) 1,000 UNIT (25 MCG) TABLET PO SCH (09:30)
[2020-11-15] MEDS: MULTIVITAMINS THER W-MINERALS COMBO TABLET (FP) PO SCH (09:30)
[2020-11-15 12:35] LABS: BASO % 0.6 % (0-2.0); EOS % 1.9 % (0-4.5); HEMATOCRIT 32.3 % (35.4-49); HEMOGLOBIN 10.7 GM/dL (11.7-16.9); LYMPH % 15.5 % (8-40); MCH 27.7 pg (25.7-33.7); MCHC 33.1 g/dl (32.0-35.9); MEAN CELL VOLUME 83.7 fl (80-96); MONO % 12.3 % (3.8-10.2); NEUT % 69.7 % (42.8-82.8); PLATELET COUNT 134 K/MM3 (134-434); RBC 3.86 M/mm3 (4.00-5.60); RDW 13.3 % (11.9-15.9)
[2020-11-15 13:05] LABS: ALBUMIN 2.4 g/dl (3.4-5.0); BLOOD UREA NITROGEN 24.8 mg/dL (7-18)
[2020-11-15 13:06] LABS: CALCIUM 9.3 mg/dL (8.5-10.1)
[2020-11-15 13:08] LABS: CREATININE 0.9 mg/dL (0.55-1.3); PHOSPHOROUS 2.7 mg/dL (2.5-4.9)
[2020-11-15 13:10] LABS: TOT PROT 5.3 g/dl (6.4-8.2)
[2020-11-15 13:14] LABS: BILIRUBIN,TOTAL 0.6 mg/dL (0.2-1)
[2020-11-15] MEDS: MIRTAZAPINE 15 MG TABLET (FP) PO SCH (21:31)
[2020-11-15] MEDS: ROSUVASTATIN CA 10 MG TABLET (FP) PO SCH (21:31)
[2020-11-16 08:52] LABS: BASO % 0.5 % (0-2.0); EOS % 1.3 % (0-4.5); HEMOGLOBIN 11.7 GM/dL (11.7-16.9); LYMPH % 15.5 % (8-40); MCH 27.8 pg (25.7-33.7); MCHC 33.3 g/dl (32.0-35.9); MEAN CELL VOLUME 83.5 fl (80-96); MEAN PLT VOLUME 10.1 fl (7.5-11.1); MONO % 9.4 % (3.8-10.2); NEUT % 73.3 % (42.8-82.8); PLATELET COUNT 140 K/MM3 (134-434); RDW 13.2 % (11.9-15.9)
[2020-11-16 09:02] LABS: POTASSIUM 4.2 mmol/L (3.5-5.1)
[2020-11-16 09:20] LABS: ALBUMIN 2.6 g/dl (3.4-5.0); BLOOD UREA NITROGEN 25.6 mg/dL (7-18); CALCIUM 9.6 mg/dL (8.5-10.1)
[2020-11-16 09:22] LABS: PHOSPHOROUS 2.7 mg/dL (2.5-4.9)
[2020-11-16 09:23] LABS: BILIRUBIN,TOTAL 0.6 mg/dL (0.2-1); CREATININE 0.9 mg/dL (0.55-1.3)
[2020-11-16 09:24] LABS: TOT PROT 6.1 g/dl (6.4-8.2)
[2020-11-16] MEDS: LOSARTAN POTASSIUM 50 MG TABLET PO SCH (10:03)
[2020-11-16] MEDS: HALOPERIDOL 2 MG TABLET PO SCH ×2 (10:17→21:47)
[2020-11-16] MEDS: TAMSULOSIN HCL 0.4 MG CAP PO SCH (10:17)
[2020-11-16] MEDS: FAMOTIDINE 20 MG TABLET PO SCH ×2 (10:18→21:45)
[2020-11-16] MEDS: CHOLECALCIFEROL (VIT D3) 1,000 UNIT (25 MCG) TABLET PO SCH (10:18)
[2020-11-16] MEDS: FINASTERIDE 5 MG TABLET (FP) PO SCH (10:18)
[2020-11-16] MEDS: CINACALCET HCL 30 MG TAB (FP) PO SCH (10:18)
[2020-11-16] MEDS: MULTIVITAMINS THER W-MINERALS COMBO TABLET (FP) PO SCH (10:18)
[2020-11-16] MEDS ORDERED: HYDROmorphone HCl 2 MG/ML VIAL IM PRN (14:54)
[2020-11-16] MEDS ORDERED: PROPOFOL 20 ML ONE (14:56)
[2020-11-16] MEDS ORDERED: DEXAMETHASONE SOD PHOSPHATE 4 MG/1 ML VIAL ONE (15:36)
[2020-11-16] MEDS ORDERED: VASOPRESSIN 20 UNITS/ML VIAL IV ONE (15:36)
[2020-11-16] MEDS ORDERED: ONDANSETRON 4 MG/2 ML VIAL IVPUSH PRN (16:32)
[2020-11-16] MEDS ORDERED: LIDOCAINE HCL 2% JELLY 10 ML CARTRIDGE UR PRN (17:05)
[2020-11-16] MEDS ORDERED: ACETAMINOPHEN 325 MG TABLET (FP) PO PRN (17:05)
[2020-11-16] MEDS ORDERED: MELATONIN 5 MG TABLETS PO PRN (17:05)
[2020-11-16] MEDS ORDERED: HALOPERIDOL LACTATE 5 MG/ML IM PRN (17:05)
[2020-11-16] MEDS ORDERED: ALBUTEROL SO4 HFA INHALER IH PRN (17:05)
[2020-11-16] MEDS ORDERED: SODIUM CHLORIDE NASAL SPRAY 44 ML BOTTLE NS PRN (17:05)
[2020-11-16] MEDS: LACTATED RINGERS SOLUTION 1,000 ML IV SCH (17:30)
[2020-11-16] MEDS: MIRTAZAPINE 15 MG TABLET (FP) PO SCH (21:44)
[2020-11-16] MEDS: ROSUVASTATIN CA 10 MG TABLET (FP) PO SCH (21:45)
[2020-11-16] MEDS ORDERED: PT OWN MED DRAWER 7, Y5N ONE (21:57)
[2020-11-17 08:48] LABS: BASO % 0.5 % (0-2.0); EOS % 1.2 % (0-4.5); HEMATOCRIT 32.6 % (35.4-49); LYMPH % 14.9 % (8-40); MCH 28.2 pg (25.7-33.7); MCHC 33.7 g/dl (32.0-35.9); MEAN CELL VOLUME 83.7 fl (80-96); MEAN PLT VOLUME 10.2 fl (7.5-11.1); MONO % 9.2 % (3.8-10.2); NEUT % 74.2 % (42.8-82.8); PLATELET COUNT 145 K/MM3 (134-434); RDW 13.6 % (11.9-15.9); WHITE BLOOD COUNT 14.7 K/mm3 (4.0-10.0)
[2020-11-17 09:11] LABS: CALCIUM 9.7 mg/dL (8.5-10.1)
[2020-11-17 09:12] LABS: ALBUMIN 2.4 g/dl (3.4-5.0); BLOOD UREA NITROGEN 22.4 mg/dL (7-18)
[2020-11-17] MEDS ORDERED: cefTRIAXone SODIUM 1 GM VIAL ONE (09:15)
[2020-11-17] MEDS ORDERED: DEXTROSE 5%-WATER - 50 ML IVPB ONE (09:15)
[2020-11-17 09:16] LABS: BILIRUBIN,TOTAL 0.8 mg/dL (0.2-1); CREATININE 0.8 mg/dL (0.55-1.3); PHOSPHOROUS 2.9 mg/dL (2.5-4.9); TOT PROT 5.8 g/dl (6.4-8.2)
[2020-11-17] MEDS ORDERED: PT OWN MED DRAWER 7, Y5N ONE (09:17)
[2020-11-17] MEDS: TAMSULOSIN HCL 0.4 MG CAP PO SCH (09:37)
[2020-11-17] MEDS: LOSARTAN POTASSIUM 50 MG TABLET PO SCH (09:38)
[2020-11-17] MEDS: HALOPERIDOL 2 MG TABLET PO SCH ×2 (09:38→21:30)
[2020-11-17] MEDS: FINASTERIDE 5 MG TABLET (FP) PO SCH (09:40)
[2020-11-17] MEDS: FAMOTIDINE 20 MG TABLET PO SCH ×2 (09:40→21:28)
[2020-11-17] MEDS: CINACALCET HCL 30 MG TAB (FP) PO SCH (09:41)
[2020-11-17] MEDS: MULTIVITAMINS THER W-MINERALS COMBO TABLET (FP) PO SCH (09:41)
[2020-11-17] MEDS: CEFTRIAXONE 1 GM in DEXTROSE 5%-WATER - 50 ML IVPB SCH (09:41)
[2020-11-17] MEDS: CHOLECALCIFEROL (VIT D3) 1,000 UNIT (25 MCG) TABLET PO SCH (09:42)
[2020-11-17] MEDS: ENOXAPARIN NA (PORCINE) 40 MG/0.4 ML DISP.SYRIN SQ SCH (11:03)
[2020-11-17] MEDS: LACTATED RINGERS SOLUTION 1,000 ML IV SCH ×2 (11:03→21:32)
[2020-11-17] MEDS: ROSUVASTATIN CA 10 MG TABLET (FP) PO SCH (21:27)
[2020-11-17] MEDS: MIRTAZAPINE 15 MG TABLET (FP) PO SCH (21:28)
[2020-11-18] MEDS ORDERED: cefTRIAXone SODIUM 1 GM VIAL ONE (10:19)
[2020-11-18] MEDS ORDERED: PT OWN MED DRAWER 7, Y5N ONE ×2 (10:19→20:53)
[2020-11-18] MEDS ORDERED: DEXTROSE 5%-WATER - 50 ML IVPB ONE (10:20)
[2020-11-18] MEDS: FAMOTIDINE 20 MG TABLET PO SCH ×2 (10:24→21:42)
[2020-11-18] MEDS: LOSARTAN POTASSIUM 50 MG TABLET PO SCH (10:25)
[2020-11-18] MEDS: MULTIVITAMINS THER W-MINERALS COMBO TABLET (FP) PO SCH (10:25)
[2020-11-18] MEDS: TAMSULOSIN HCL 0.4 MG CAP PO SCH (10:25)
[2020-11-18] MEDS: FINASTERIDE 5 MG TABLET (FP) PO SCH (10:25)
[2020-11-18] MEDS: ENOXAPARIN NA (PORCINE) 40 MG/0.4 ML DISP.SYRIN SQ SCH (10:25)
[2020-11-18] MEDS: HALOPERIDOL 2 MG TABLET PO SCH ×2 (10:25→21:41)
[2020-11-18] MEDS: CEFTRIAXONE 1 GM in DEXTROSE 5%-WATER - 50 ML IVPB SCH (10:26)
[2020-11-18] MEDS: CINACALCET HCL 30 MG TAB (FP) PO SCH (10:26)
[2020-11-18] MEDS: CHOLECALCIFEROL (VIT D3) 1,000 UNIT (25 MCG) TABLET PO SCH (10:26)
[2020-11-18] MEDS ORDERED: ACETAMINOPHEN 325 MG TABLET (FP) PO PRN ×2 (15:41→16:31)
[2020-11-18] MEDS: ROSUVASTATIN CA 10 MG TABLET (FP) PO SCH (21:41)
[2020-11-18] MEDS: MIRTAZAPINE 15 MG TABLET (FP) PO SCH (21:42)
[2020-11-19 08:25] LABS: BASO % 0.7 % (0-2.0); EOS % 5.1 % (0-4.5); HEMATOCRIT 30.3 % (35.4-49); HEMOGLOBIN 10.2 GM/dL (11.7-16.9); LYMPH % 20.8 % (8-40); MCH 28.1 pg (25.7-33.7); MCHC 33.8 g/dl (32.0-35.9); MEAN CELL VOLUME 83.3 fl (80-96); MEAN PLT VOLUME 9.6 fl (7.5-11.1); NEUT % 64.4 % (42.8-82.8); PLATELET COUNT 148 K/MM3 (134-434); RBC 3.63 M/mm3 (4.00-5.60); RDW 13.6 % (11.9-15.9); WHITE BLOOD COUNT 8.6 K/mm3 (4.0-10.0)
[2020-11-19 08:44] LABS: POTASSIUM 3.8 mmol/L (3.5-5.1)
[2020-11-19 08:50] LABS: ALBUMIN 2.2 g/dl (3.4-5.0)
[2020-11-19 08:51] LABS: BLOOD UREA NITROGEN 15.6 mg/dL (7-18)
[2020-11-19 08:53] LABS: PHOSPHOROUS 2.7 mg/dL (2.5-4.9)
[2020-11-19 08:54] LABS: CREATININE 0.8 mg/dL (0.55-1.3)
[2020-11-19 08:55] LABS: TOT PROT 5.4 g/dl (6.4-8.2)
[2020-11-19] MEDS ORDERED: PT OWN MED DRAWER 7, Y5N ONE (10:19)
[2020-11-19] MEDS ORDERED: DEXTROSE 5%-WATER - 50 ML IVPB ONE (10:20)
[2020-11-19] MEDS ORDERED: cefTRIAXone SODIUM 1 GM VIAL ONE (10:20)
[2020-11-19] MEDS: ENOXAPARIN NA (PORCINE) 40 MG/0.4 ML DISP.SYRIN SQ SCH (10:21)
[2020-11-19] MEDS: FAMOTIDINE 20 MG TABLET PO SCH (10:22)
[2020-11-19] MEDS: FINASTERIDE 5 MG TABLET (FP) PO SCH (10:22)
[2020-11-19] MEDS: CEFTRIAXONE 1 GM in DEXTROSE 5%-WATER - 50 ML IVPB SCH (10:23)
[2020-11-19] MEDS: LOSARTAN POTASSIUM 50 MG TABLET PO SCH (10:23)
[2020-11-19] MEDS: TAMSULOSIN HCL 0.4 MG CAP PO SCH (10:23)
[2020-11-19] MEDS: CINACALCET HCL 30 MG TAB (FP) PO SCH (10:23)
[2020-11-19] MEDS: MULTIVITAMINS THER W-MINERALS COMBO TABLET (FP) PO SCH (10:23)
[2020-11-19] MEDS: CHOLECALCIFEROL (VIT D3) 1,000 UNIT (25 MCG) TABLET PO SCH (10:23)
[2020-11-19] MEDS: HALOPERIDOL 2 MG TABLET PO SCH (10:23)
[2020-11-19 12:20] VITALS: TEMP 98.3
[2020-11-19 19:38] VITALS: BP 127/58; PULSE 96
== END 2020-11-19 19:54 | DRG 987 ==
LOC: JER 16:29 → JERBED 20:20 → J5S 10-29 00:36 → J8W 10-29 22:57
PROVIDERS: ADMIT Internal Medicine; ATTEND Internal Medicine
PROC: XW033E5 Introduction of Remdesivir Anti-infective into Peripheral Vein, Percutaneous Approach, New Technology Group 5 (ICD-10-PCS; 2020-10-29)
PROC: XW13325 Transfusion of Convalescent Plasma (Nonautologous) into Peripheral Vein, Percutaneous Approach, New Technology Group 5 (ICD-10-PCS; 2020-10-30)
PROC: 0VB08ZZ Excision of Prostate, Via Natural or Artificial Opening Endoscopic (ICD-10-PCS; 2020-11-16)
PROC: 0TJB8ZZ Inspection of Bladder, Via Natural or Artificial Opening Endoscopic (ICD-10-PCS; 2020-11-16)
PROC: 0V508ZZ Destruction of Prostate, Via Natural or Artificial Opening Endoscopic (ICD-10-PCS; principal; 2020-11-16 15:00)
DX: U07.1 COVID-19 (principal); J12.82 Pneumonia due to coronavirus disease 2019; G93.41 Metabolic encephalopathy; J96.01 Acute respiratory failure with hypoxia; E21.3 Hyperparathyroidism, unspecified; I10 Essential (primary) hypertension; N40.0 Benign prostatic hyperplasia without lower urinary tract symptoms; I25.10 Atherosclerotic heart disease of native coronary artery without angina pectoris; R26.2 Difficulty in walking, not elsewhere classified; E78.5 Hyperlipidemia, unspecified; R31.9 Hematuria, unspecified; F03.90 Unspecified dementia, unspecified severity, without behavioral disturbance, psychotic disturbance, mood disturbance, and anxiety; N40.1 Benign prostatic hyperplasia with lower urinary tract symptoms; R33.8 Other retention of urine; N32.89 Other specified disorders of bladder; N13.9 Obstructive and reflux uropathy, unspecified; R31.0 Gross hematuria; N28.1 Cyst of kidney, acquired; K76.89 Other specified diseases of liver
CPT/HCPCS: 36415; 36430; 71045-TC-FY; 71046-TC-FY; 71250-TC; 76775-TC; 76856-TC; 80053; 81003; 82248; 82550; 82553; 82728; 82803; 82962; 83540; 83550; 83605; 83615; 83735; 84100; 84439; 84443; 84479; 84484; 85025; 85379; 85610; 85730; 86140; 86850; 86900; 86901; 87040; 87086; 87804; 87899; 88305-TC; 93005; 93010; 93880-TC; 94760; 97116-GP; 97161-GP; 99285-25; C9399; C9803; P9017; U0003